=== PATIENT | male | born 1950 | race Caucasian/White ===

== ENCOUNTER → 2018-07-17 | Outpatient (CLI) | payer MEDICARE ==
[2018-07-17 12:12] LABS: Appearance,Urine Clear (Clear); Bilirubin,Urine Negative (Negative); Blood,Urine Negative (Negative); Color,Urine Yellow; Glucose,Urine (UA) Negative (Negative); Ketones,Urine Negative (Negative); Leukocyte Esterase,Urine Negative (Negative); Nitrite,Urine Negative (Negative); Protein,Urine Negative (Negative); Specific Gravity,Urine 1.007 (1.001-1.035); Urobilinogen,Urine <2.0 mg/dL (<2.0)
[2018-07-17 12:28] LABS: HCT 43.1 % (39.0-53.0); HGB 14.3 gm/dL (13.0-17.5); MCH 28.7 pg (25.0-35.0); MCHC 33.3 g/dL (31.0-37.0); MCV 86.3 fL (80.0-100.0); Mean Platelet Volume 8.3; Platelet Count 211 k/uL (150-450); RBC 4.99 m/uL (4.30-5.90); RDW 13.4 % (11.5-15.5); WBC 8.7 k/uL (3.8-10.6)
[2018-07-17 12:31] LABS: INR 0.9 (<1.2); Partial Thromboplastin Time 24.9 sec (22.0-30.0); Prothrombin Time 10.2 sec (9.0-12.0)
[2018-07-17 12:37] LABS: ALT 43 U/L (21-72); AST 57 U/L (17-59); Albumin 4.1 g/dL (3.5-5.0); Alkaline Phosphatase 63 U/L (38-126); Anion Gap 6 mmol/L; Blood Urea Nitrogen 15 mg/dL (9-20); Calcium 9.5 mg/dL (8.4-10.2); Carbon Dioxide 31 mmol/L (22-30); Chloride 103 mmol/L (98-107); Cholesterol 174 mg/dL (<200); Glucose 107 mg/dL (74-99); HDL Cholesterol 42 mg/dL (40-60); LDL Cholesterol,Calculated 95 mg/dL (0-99); Potassium 5.1 mmol/L (3.5-5.1); Sodium 140 mmol/L (137-145); Total Bilirubin 0.7 mg/dL (0.2-1.3); Total Protein 6.7 g/dL (6.3-8.2); Triglycerides 184 mg/dL (<150)
--- NOTE | 2018-07-17 14:36 | XR ---
EXAMINATION TYPE: XR chest 2V DATE OF EXAM: 07/17/2018 COMPARISON: NONE TECHNIQUE: PA and lateral views submitted. HISTORY: Presurgical testing FINDINGS: The lungs are clear and there is no pneumothorax, pleural effusion, or focal pneumonia. Biapical pl eural thickening. Hypertrophic change of the spine. No overt failure. IMPRESSION: 1. No acute process.
[2018-07-17 18:07] LABS: Hepatitis A Antibody IgM Non-Reactive (Non-Reactive); Hepatitis B Core IgM Non-Reactive (Non-Reactive)
[2018-07-17 19:14] LABS: Hemoglobin A1C 5.6 % (4.0-6.0)
--- NOTE | 2018-07-21 11:29 | P.PN ---
Progress Note - Text Progress Note Date: 07/17/18 5 meter walk test completed: #1 3.96 sec #2 4.33 sec #3 3.59 sec STS risk score calculated and discussed with the patient and his
== END | disposition home or self-care (01) ==
LOC: LABPAT 11:02
PROVIDERS: ATTEND Thoracic Surgery (Cardiothoracic Vascular Surgery)
DX: Z01.818 Encounter for other preprocedural examination (principal); Z01.812 Encounter for preprocedural laboratory examination
CPT/HCPCS: 36415; 71046; 80053; 80061; 80074; 81003; 83036; 83735; 84443; 85027; 85610; 85730; 87070; 87086; 93005

== ENCOUNTER 2018-07-24 05:49 | Inpatient (IN) | payer MEDICARE ==
[~2018-07-24 05:49] MED LIST: ALBUMIN HUMAN 25% 50 ML IV ONE; ALBUMIN HUMAN 5% 500 ML IVPB ONE; ASPIRIN 325 MG TAB PO ONE; ATORVASTATIN 10 MG TAB PO ONE; CALCIUM CHLORIDE 100 MG/ML 10 ML SYRINGE IV ONE; CHLORHEXIDINE GLUCONATE 15 ML CUP MUCOUS MEM ONE; CLEVIDIPINE BUTYRATE 25 MG in EMPTY BAG 1 BAG IV ONE; DEXTROSE 5% IN WATER 1,000 ML with POTASSIUM CHLORIDE 110 MEQ, MAGNESIUM SULFATE 16 MEQ... IV ONE; DEXTROSE 5% IN WATER 1,000 ML with POTASSIUM CHLORIDE 25 MEQ, SODIUM CHLORIDE 2.5MEQ/ML... IRRIGATION ONE; HEPARIN SODIUM 1,000 UN/ML (10ML VL) IV ONE; HEPARIN SODIUM,PORCINE 5,000 UNIT in SODIUM CHLORIDE 0.9% 500 ML 500 ML IV ONE; INSULIN REGULAR 100 UNIT in SODIUM CHLORIDE 0.9% 100 ML IV ONE; LACTATED RINGERS 1,000 ML IV ONE; MAGNESIUM SULFATE MG 500 MG/ML IV ONE; MANNITOL 25% 12.5 GM/50 ML VIAL IV ONE; METOPROLOL TARTRATE 12.5 MG TAB PO ONE; NITROGLYCERIN SL TABS 0.4 MG TAB SUBLINGUAL ONE; NITROGLYCERIN-D5W PMX 25 MG/250 ML BTL IV ONE; NITROGLYCERIN-D5W PMX 50 MG in DEXTROSE/WATER 1 250ML.BAG IV ONE; NOREPINEPHRINE 4 MG in SODIUM CHLORIDE 0.9% 250 ML IV ONE; PAPAVERINE 360 MG in SODIUM CHLORIDE 0.9% 90 ML IV ONE; PHENYLEPHRINE 10 MG/ML VIAL IV ONE; PHENYLEPHRINE 40 MG in SODIUM CHLORIDE 0.9% 250 ML IV ONE; PROPOFOL 1,000 MG/100 ML VIAL IV ONE; PROTAMINE SULFATE 10 MG/ML 25 ML VIAL IV ONE; PROTAMINE SULFATE 250 MG in EMPTY BAG 1 BAG IV ONE; SODIUM BICARB 8.4% 50 ML SYR (1 MEQ/ML) IV ONE; SODIUM CHLORIDE 0.9% 1,000 ML IV ONE; TRANEXAMIC ACID 2,000 MG in SODIUM CHLORIDE 0.9% 80 ML IV ONE; ceFAZolin 2,000 MG in SODIUM CHLORIDE 0.9% 30 ML IVPB ONE
[2018-07-24] MEDS ORDERED: ELECTROLYTE-R (PH 7.4) 1,000 ML IV.SOLN IV ONE (08:44)
[2018-07-24] MEDS ORDERED: PROTAMINE SULFATE 10 MG/ML 25 ML VIAL IV ONE (08:44)
[2018-07-24] MEDS ORDERED: ePHEDrine SULFATE/0.9% NACL/PF 50 MG/5 ML SYRINGE IV ONE (08:44)
[2018-07-24] MEDS ORDERED: PHENYLEPHRINE-0.9% NACL SYG 1 MG/10 ML SYRINGE ONE (08:44)
[2018-07-24] MEDS ORDERED: HEPARIN SODIUM,PORCINE 10,000 UNIT/ML 1 ML VIAL ONE (08:44)
[2018-07-24] MEDS ORDERED: SODIUM CHLORIDE 0.9% 250 ML BAG ONE (08:44)
[2018-07-24] MEDS ORDERED: VECURONIUM 10 MG VIAL IV ONE (08:44)
[2018-07-24] MEDS ORDERED: ceFAZolin 1,000 MG VIAL ONE (08:44)
[2018-07-24] MEDS ORDERED: SUCCINYLCHOLINE CHLORIDE VIAL 200 MG/10 ML VIAL IV ONE (08:44)
[2018-07-24] MEDS ORDERED: MIDAZOLAM 2 MG/2 ML VIAL ONE (08:44)
[2018-07-24] MEDS ORDERED: MAGNESIUM SULFATE 4 MEQ/ML 10ML VIAL ONE (08:44)
[2018-07-24] MEDS ORDERED: fentaNYL (PF) 50 MCG/ML 2 ML AMP ONE (08:44)
[2018-07-24] MEDS ORDERED: PROPOFOL 10 MG/ML 20 ML VIAL IV ONE (08:44)
[2018-07-24] MEDS ORDERED: LIDOCAINE 2% SYG (PF) 100 MG/5 ML ONE (08:44)
[2018-07-24] MEDS ORDERED: TRANEXAMIC ACID 1,000 MG/10 ML VIAL ONE (08:44)
[2018-07-24] MEDS ORDERED: SODIUM CHLORIDE 0.9% IRRIG 1,000 ML BTL IRRIGATION ONE (08:44)
[2018-07-24] MEDS ORDERED: fentaNYL (PF) 50 MCG/ML 50 ML VIAL ONE (08:44)
[2018-07-24] MEDS ORDERED: CALCIUM CHLORIDE 100 MG/ML 10 ML SYRINGE ONE (08:44)
[2018-07-24 09:24] LABS: ABG Base Excess 1.8 mmol/L; ABG HCO3 26 mmol/L (21-25); ABG PCO2 40 mmHg (35-45); ABG PH 7.43 (7.35-7.45); ABG PO2 356 mmHg (83-108); ABG Potassium Whole Blood 4.3 mmol/L (3.4-4.5); ABG Sodium Whole Blood 139 mmol/L (135-146); ABG TCO2 28 mmol/L (19-24)
[2018-07-24 10:16] LABS: ABG Base Excess 1.3 mmol/L; ABG HCO3 26 mmol/L (21-25); ABG Oxygen Saturation 98.8 % (94-97); ABG PCO2 40 mmHg (35-45); ABG PH 7.42 (7.35-7.45); ABG PO2 112 mmHg (83-108); ABG Potassium Whole Blood 4.3 mmol/L (3.4-4.5); ABG Sodium Whole Blood 138 mmol/L (135-146); ABG TCO2 27 mmol/L (19-24)
[2018-07-24 10:50] LABS: ABG Base Excess 0.8 mmol/L; ABG HCO3 26 mmol/L (21-25); ABG PCO2 41 mmHg (35-45); ABG PO2 374 mmHg (83-108); ABG Potassium Whole Blood 5.2 mmol/L (3.4-4.5); ABG Sodium Whole Blood 132 mmol/L (135-146); ABG TCO2 27 mmol/L (19-24)
[2018-07-24 11:20] LABS: ABG Base Excess -0.3 mmol/L; ABG HCO3 26 mmol/L (21-25); ABG Oxygen Saturation 99.4 % (94-97); ABG PCO2 51 mmHg (35-45); ABG PH 7.32 (7.35-7.45); ABG PO2 158 mmHg (83-108); ABG Potassium Whole Blood 4.4 mmol/L (3.4-4.5); ABG Sodium Whole Blood 135 mmol/L (135-146); ABG TCO2 28 mmol/L (19-24)
[2018-07-24 11:40] LABS: ABG Base Excess -0.7 mmol/L; ABG HCO3 26 mmol/L (21-25); ABG PCO2 53 mmHg (35-45); ABG PO2 387 mmHg (83-108); ABG Potassium Whole Blood 4.3 mmol/L (3.4-4.5); ABG Sodium Whole Blood 136 mmol/L (135-146); ABG TCO2 28 mmol/L (19-24)
[2018-07-24 12:00] LABS: ABG Base Excess -0.4 mmol/L; ABG HCO3 25 mmol/L (21-25); ABG PCO2 44 mmHg (35-45); ABG PH 7.37 (7.35-7.45); ABG PO2 418 mmHg (83-108); ABG Potassium Whole Blood 4.6 mmol/L (3.4-4.5); ABG Sodium Whole Blood 136 mmol/L (135-146); ABG TCO2 26 mmol/L (19-24)
[2018-07-24 13:03] LABS: ABG Base Excess -0.4 mmol/L; ABG HCO3 25 mmol/L (21-25); ABG Oxygen Saturation 99.9 % (94-97); ABG PCO2 42 mmHg (35-45); ABG PH 7.38 (7.35-7.45); ABG PO2 315 mmHg (83-108); ABG Potassium Whole Blood 3.9 mmol/L (3.4-4.5); ABG Sodium Whole Blood 137 mmol/L (135-146); ABG TCO2 26 mmol/L (19-24)
[2018-07-24 13:04] LABS: ABG Base Excess -0.7 mmol/L; ABG HCO3 24 mmol/L (21-25); ABG PCO2 41 mmHg (35-45); ABG PH 7.39 (7.35-7.45); ABG PO2 296 mmHg (83-108); ABG Potassium Whole Blood 3.9 mmol/L (3.4-4.5); ABG Sodium Whole Blood 137 mmol/L (135-146); ABG TCO2 26 mmol/L (19-24)
[2018-07-24] MEDS ORDERED: BENZOCAINE/MENTHOL LOZENG 1 EACH LOZENGE MUCOUS MEM PRN (13:29)
[2018-07-24] MEDS ORDERED: AMIODARONE 360 MG in DEXTROSE 5% IN WATER 200 ML IV PRN ×2 (13:29)
[2018-07-24] MEDS ORDERED: Potassium Replacement Protocol 1 EACH MISC MISCELLANE PRN (13:29)
[2018-07-24] MEDS ORDERED: PROPOFOL 1,000 MG in EMPTY BAG 1 BAG IV SCH (13:29)
[2018-07-24] MEDS ORDERED: CLEVIDIPINE BUTYRATE 25 MG in EMPTY BAG 1 BAG IV SCH (13:29)
[2018-07-24] MEDS ORDERED: Phosphorus Replacement Protoco 1 EACH MISC MISCELLANE PRN (13:29)
[2018-07-24] MEDS ORDERED: NITROGLYCERIN-D5W PMX 50 MG in DEXTROSE/WATER 1 250ML.BAG IV SCH (13:29)
[2018-07-24] MEDS ORDERED: METOCLOPRAMIDE 5 MG/ML 2 ML VIAL IVP PRN (13:29)
[2018-07-24] MEDS ORDERED: CALCIUM CHLORIDE 1,000 MG in SODIUM CHLORIDE 0.9% 100 ML IV PRN (13:29)
[2018-07-24] MEDS ORDERED: Magnesium Replacement Protocol 1 EACH MISC MISCELLANE PRN (13:29)
[2018-07-24] MEDS ORDERED: IPRATROPIUM-ALBUTEROL 3 ML NEB INHALATION PRN (13:29)
[2018-07-24] MEDS ORDERED: ALBUMIN HUMAN 5% 250 ML in EMPTY BAG 1 BAG IVPB PRN (13:29)
[2018-07-24 14:13] LABS: Glucose,Whole Blood 129 mg/dL (75-99)
[2018-07-24 14:25] LABS: Basophils % (A) 0 %; Eosinophils # (A) 0.1 k/uL (0-0.7); Eosinophils % (A) 0 %; HCT 35.8 % (39.0-53.0); Lymphocytes # (A) 0.7 k/uL (1.0-4.8); Lymphocytes % (A) 3 %; MCH 29.2 pg (25.0-35.0); MCHC 33.4 g/dL (31.0-37.0); MCV 87.4 fL (80.0-100.0); Mean Platelet Volume 8.9; Monocytes # (A) 1.2 k/uL (0-1.0); Monocytes % (A) 4 %; Neutrophils # (A) 25.7 k/uL (1.3-7.7); Neutrophils % (A) 93 %; Platelet Count 141 k/uL (150-450); RDW 13.4 % (11.5-15.5); WBC 27.8 k/uL (3.8-10.6)
[2018-07-24 14:29] LABS: ABG Base Excess 1.4 mmol/L; ABG HCO3 27 mmol/L (21-25); ABG PCO2 46 mmHg (35-45); ABG PH 7.37 (7.35-7.45); ABG PO2 382 mmHg (83-108); ABG TCO2 28 mmol/L (19-24)
[2018-07-24 14:43] LABS: INR 1.1 (<1.2); Partial Thromboplastin Time 24.4 sec (22.0-30.0); Prothrombin Time 11.8 sec (9.0-12.0)
[2018-07-24] MEDS: LACTATED RINGERS 1,000 ML IV SCH (14:47)
[2018-07-24 14:48] LABS: ALT 38 U/L (21-72); AST 79 U/L (17-59); Albumin 2.8 g/dL (3.5-5.0); Alkaline Phosphatase 34 U/L (38-126); Anion Gap 3 mmol/L; Blood Urea Nitrogen 14 mg/dL (9-20); Calcium 8.4 mg/dL (8.4-10.2); Carbon Dioxide 27 mmol/L (22-30); Chloride 106 mmol/L (98-107); Glucose 127 mg/dL (74-99); Magnesium 2.4 mg/dL (1.6-2.3); Potassium 4.4 mmol/L (3.5-5.1); Sodium 136 mmol/L (137-145); Total Protein 4.8 g/dL (6.3-8.2)
[2018-07-24] MEDS: ACETAMINOPHEN IV (For NPO) 1,000 MG in EMPTY BAG 1 BAG IVPB SCH ×3 (15:13→23:10)
--- NOTE | 2018-07-24 15:17 | XR ---
EXAMINATION TYPE: XR chest 1V portable DATE OF EXAM: 07/24/2018 COMPARISON: NONE HISTORY: Incorrect instrument count TECHNIQUE: Single frontal view of the chest is obtained. FINDINGS: ET tube is low in position within the proximal right mainstem bronchus and there is bilate ral subsegmental consolidation and small left effusion. No sizable pneumothorax. Sternotomy wires are seen and there is a Pearcy-Malika catheter no evidence of previous surgery. Suggestion of an epicardial lead. Perihilar air fluid density is nonspecific should be correlated PA and lateral views the chest or CT scan. Prominence the hilum is noted as well as the right paratracheal soft tissue region. Small amount of pneumomediastinum not excluded. IMPRESSION: 1. Postsurgical changes with the ET tube in the proximal right mainstem bronchus. Report called to e patient's ICU nurse. 2. Bilateral consolidation and small effusion. 3. Air soft tissue density in the left perihilar region of uncertain etiology may be postsurgical cor relate with CT scan as clinically warranted.
[2018-07-24 15:18] LABS: Glucose,Whole Blood 116 mg/dL (75-99)
[2018-07-24] MEDS ORDERED: IPRATROPIUM-ALBUTEROL 3 ML NEB INHALATION SCH (16:00)
--- NOTE | 2018-07-24 16:11 | OP ---
OPERATIVE REPORT DATE OF OPERATION: 07/24/2018. ATTENDING SURGEON: Dr. Harinder Arce. ASSIST: Ramo Cummings and Emily JERRELL. PREOP DIAGNOSES: 1. Severe mitral regurgitation. 2. Coronary artery disease. POSTOPERATIVE DISEASE: 1. Severe mitral regurgitation. 2. Coronary artery disease. 3. 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 PROCEDURE PERFORMED: 1. Complex mitral valve repair with zack chords x2 pair to P2 of the posterior leaflet, ring annuloplasty with a #36 mm carbo medics annular flex band. 2. Coronary artery bypass grafting x1 with left internal mammary to left anterior descending artery. 3. Clip ligation of left atrial appendage with a #40 mm AtriClip. 4. Closure of P2, P3 cleft in the posterior mitral leaflet. 5. Intraoperative SHANICE. ANESTHESIA: General anesthesia. BLOOD LOSS: 500 mL. SUMMARY: The patient brought to the operating room and placed on the operating table in supine position. After administration of general tracheal anesthetic, placement of a [place]- Malika catheter, arterial line adequate IV access, Anand catheter, patient carefully prepped and draped in a sterile fashion using Betadine and sterile towels. Midline incision in the chest made, sternum divided. Pericardium was opened. Heart size was relatively normal size and the aorta was soft. Left pleural space opened. Left internal mammary artery harvested as a pedicle from the xiphoid to the left subclavian vein. It was of 2 mm quality with excellent flow. The patient was heparinized. ACT rather than 480. The aorta and 2 single stage venous cannulas were placed, antegrade and retrograde cardioplegic catheters positioned in the ascending aorta and the coronary sinus. The patient was placed on bypass, cross-clamp placed. Heart arrested with 1 L of antegrade followed by 500 mL retrograde cardioplegia. Retrograde cardioplegia was delivered 3-500 mL at the end of each 20 minute intervals. First the base of the left atrial appendage was measured and a #40 mm AtriClip was opened and secured at the base officially obliterating the left atrial appendage. Next, the distal anastomosis was constructed. Left internal mammary was beveled and distal anastomosis to the mid left anterior descending artery constructed using an 0 Prolene running suture. Caliber of this vessel was 2 mm. The left atrium was entered anterior to the junction of the right superior pulmonary vein. A handheld retractor was placed. The mitral valve was identified. There was definitely noted to be torn chords to P2 of the posterior leaflet. The mitral valve was a myxomatous type valve with abundance of tissue. At this point, using 5-0 [place]ood 2 pairs of zack chords were constructed to the appropriate papillary muscle heads to the medial and lateral edges of P2 of the posterior leaflet, then they were tied down measuring accordingly. At this point, a large cleft between P2 and P3 was closed with 2 vertical mattress 5-0 Prolene sutures. Next, it sized to a 36 mm [employer] annular flex. 2-0 Tycron non pledgeted sutures were placed from trigone to trigone along the posterior anulus. These were then passed through the band, which was seated and seated well. All sutures were then tied and secured down and cut using the core knot ligature system device. It was tested with the handheld jerson and tested well. At this point, the atrium was closed in a double layered pledgeted 4-0 Prolene vertical mattress followed by an over- and over stitch from both sides. At this point, the patient was placed head down. Complete de-airing maneuvers were performed three times. 1 L of warm blood retrograde cardioplegia was run cross-clamp was then removed. Once reperfused, the patient was then brought off bypass. Came off bypass uneventfully with good hemodynamics. Protamine delivered. Patient decannulated. Atrial ventricular pacing wires were placed. Mediastinal left pleural chest tubes were placed. At this point, the sternum was closed with four #6 sternal wires and 3 [id number] [place] sternal cable closure devices. At this point, skin, subcutaneous tissue, and fascia closed in 3 layers. No complications. The patient tolerated the procedure well. Postoperative SHANICE showed excellent left and right ventricular function. Good result in the mitral repair with no regurg, central or perivalvular. MMODL / IJN: [id number] /
[2018-07-24 16:12] LABS: Glucose,Whole Blood 121 mg/dL (75-99)
[2018-07-24 16:55] LABS: ABG Base Excess -1.8 mmol/L; ABG HCO3 24 mmol/L (21-25); ABG Oxygen Saturation 99.3 % (94-97); ABG PCO2 44 mmHg (35-45); ABG PH 7.34 (7.35-7.45); ABG PO2 142 mmHg (83-108); ABG TCO2 25 mmol/L (19-24)
--- NOTE | 2018-07-24 16:56 | P.CNPUL ---
History of Present Illness Consult date: 07/24/18 Requesting physician: Harinder Arce Reason for consult: other (Status post complex mitral valve repair, and coronary artery bypass grafting 1 with TERRELL to LAD.) Chief complaint: Severe mitral regurgitation and coronary artery disease, recently discovere History of present illness: This is a 68-year-old white male with history of severe mitral valve regurgitation, coronary artery disease, torn chordae 2 P2 the posterior leaflet. Patient underwent complex mitral valve repair today, with Edgar cords 2 and repair of posterior leaflet. During annuloplasty with #36 mm [employer] annular flex band. Patient also underwent coronary artery bypass grafting 1 with TERRELL to LAD. Postoperatively patient was on mechanical ventilation, and I was asked to see him on consultation. Patient is presently in the intensive care unit, his ventilator settings are IMV rate of 12, tidal volume of 550, PEEP of 10, and FiO2 initially was at 100% and I cut it down to 45%. ABG in the ICU showed a pO2 of 382 pCO2 of 46 pH of 7.37. Chest x-ray was reviewed, the endotracheal tube was noted in the right mainstem bronchus, however it was earlier removed by the surgeon on the case before the patient came up to the ICU. No follow-up chest x-ray was done since the tube was adjusted. Review of Systems ROS unobtainable: due to endotracheal tube Past Medical History Past Medical History: Hyperlipidemia Additional Past Medical History / Comment(s): seasonal allergies History of Any Multi-Drug Resistant Organisms: None Reported Past Surgical History: Heart Catheterization Additional Past Surgical History / Comment(s): SHANICE x3 Past Anesthesia/Blood Transfusion Reactions: No Reported Reaction Smoking Status: Never smoker - Past Family History Brother(s) Family Medical History: Cancer Medications and Allergies Home Medications Medication Instructions Recorded Confirmed Type Aspirin 81 mg PO DAILY 07/21/18 07/24/18 History Atorvastatin [Lipitor] 40 mg PO HS 07/21/18 07/24/18 History L.acidoph,Paracasei, B.lactis 1 each PO DAILY 07/21/18 07/24/18 History [Probiotic] Loratadine [Claritin] 10 mg PO DAILY 07/21/18 07/24/18 History Multivitamins, Thera [Multivitamin 1 tab PO DAILY 07/21/18 07/24/18 History (formulary)] Sildenafil Citrate [Viagra] 25 mg PO ONCE 07/21/18 07/24/18 History Allergies Allergy/AdvReac Type Severity Reaction Status Date / Time No Known Allergies Allergy Verified 07/24/18 06:13 Physical Exam Vitals: Vital Signs Temp Pulse Pulse Resp BP BP BP 07/24/18 16:30 85 17 149/82 07/24/18 16:15 83 15 124/74 07/24/18 16:00 74 19 127/78 07/24/18 15:50 76 15 127/78 07/24/18 15:46 70 18 07/24/18 15:40 69 15 122/77 07/24/18 15:32 70 12 07/24/18 15:30 69 11 L 07/24/18 15:20 70 12 108/71 07/24/18 15:10 70 12 111/73 07/24/18 15:00 69 17 115/73 07/24/18 14:50 69 12 07/24/18 14:40 70 12 07/24/18 14:30 68 9 L 07/24/18 14:20 68 12 07/24/18 14:10 68 12 07/24/18 14:04 79 12 07/24/18 06:09 97.3 F L 74 18 156/76 07/24/18 06:07 148/71 Pulse Ox 07/24/18 16:30 96 07/24/18 16:15 92 L 07/24/18 16:00 100 07/24/18 15:50 100 07/24/18 15:46 07/24/18 15:40 100 07/24/18 15:32 07/24/18 15:30 99 07/24/18 15:20 100 07/24/18 15:10 100 07/24/18 15:00 100 07/24/18 14:50 100 07/24/18 14:40 100 07/24/18 14:30 100 07/24/18 14:20 100 07/24/18 14:10 100 07/24/18 14:04 07/24/18 06:09 96 07/24/18 06:07 Intake and Output 07/24/18 07/24/18 07/24/18 06:59 14:59 22:59 Intake Total 34.975 140.009 Output Total 1900 272 Balance -1865.025 -131.991 Intake: IV 32 100 Lactated Ringers 1,000 ml 100 @ 50 mls/hr IV .Q20H MILLI Rx#:[id number] Intake, IV Titration 2.975 40.009 Amount Clevidipine Butyrate 25 1.9 15.667 mg In Empty Bag 1 bag @ 1 MG/HR 2 mls/hr IV .Q24H MILLI Rx#:[id number] Nitroglycerin-D5w Pmx 50 1.075 0.5 mg In Dextrose/Water 1 250ml.bag @ 5 MCG/MIN 1.5 mls/hr IV .Q24H MILLI Rx#: [id number] Propofol 1,000 mg In 23.842 Empty Bag 1 bag @ Titrate IV .Q0M MILLI Rx#: [id number] Output: Chest Tube Drainage 170 Left Pleural/Mediastinal 170 Urine 400 102 Estimated Blood Loss 1500 ABP, PAP, CO, CI - Last 8 Hours Arterial Blood Pressure 145/75 Arterial Blood Pressure 136/71 Arterial Blood Pressure 117/69 Arterial Blood Pressure 134/76 Arterial Blood Pressure 142/74 Arterial Blood Pressure 136/71 Arterial Blood Pressure 133/70 Arterial Blood Pressure 128/69 Arterial Blood Pressure 124/70 Arterial Blood Pressure 130/73 Arterial Blood Pressure 135/76 Arterial Blood Pressure 135/74 Arterial Blood Pressure 136/75 Arterial Blood Pressure 59/59 Pulmonary Artery Pressure 50/27 Pulmonary Artery Pressure 57/26 Pulmonary Artery Pressure 42/24 Pulmonary Artery Pressure 43/25 Pulmonary Artery Pressure 43/25 Pulmonary Artery Pressure 42/23 Pulmonary Artery Pressure 42/24 Pulmonary Artery Pressure 38/22 Pulmonary Artery Pressure 38/22 Pulmonary Artery Pressure 40/24 Pulmonary Artery Pressure 40/24 Pulmonary Artery Pressure 38/24 Pulmonary Artery Pressure 40/23 Pulmonary Artery Pressure 41/24 Cardiac Output 4.5 Cardiac Output 4.5 Cardiac Index 2.0 Cardiac Index 2.0 Physical Exam: Revealed a 68-year-old white male, obese, on mechanical ventilation, in no distress, sedated. Head: Atraumatic normocephalic. HEENT:[Neck is supple.] [No neck masses.] [No thyromegaly.] [No JVD.] PERRLA, EOMI, endotracheal tube is intact, orogastric tube is intact. Chest: [[employer] breath sounds at the bases no crackles or rhonchi or wheezes..] Cardiac Exam: [Normal S1 and S2, no S3 gallop, 2/6 systolic murmur thought the precordium, positive pericardial rub] Abdomen: [Obese, Soft, nontender, no megaly, no rebound, no guarding, normal bowel sounds.] Extremities: [No clubbing, no edema, no cyanosis.] Neurological Exam: [Cannot be assessed, patient is sedated on mechanical ventilation. Psychiatric: Cannot be assessed. Pharynx: No lymphadenopathy. Urine: No rashes. Results - Laboratory Findings CBC and BMP: 07/24/18 14:10 07/24/18 14:10 ABG ABG pH 7.37 (7.35-7.45) 07/24/18 14:25 ABG pCO2 46 mmHg (35-45) H 07/24/18 14:25 ABG pO2 382 mmHg (83-108) H 07/24/18 14:25 ABG O2 Saturation 100.0 % (94-97) H 07/24/18 14:25 PT/INR, D-dimer PT 11.8 sec (9.0-12.0) 07/24/18 14:10 INR 1.1 (<1.2) 07/24/18 14:10 Abnormal lab findings: Abnormal Labs 07/17/18 07/24/18 07/24/18 11:25 09:24 10:16 WBC RBC Hgb Hct Plt Count Neutrophils # Lymphocytes # Monocytes # ABG pH ABG pCO2 ABG pO2 356 H 112 H ABG HCO3 26 H 26 H ABG Total CO2 28 H 27 H ABG O2 Saturation 100.0 H 98.8 H ABG Hematocrit ABG Sodium ABG Potassium ABG Ionized Calcium ABG Glucose 107 H 145 H ABG Lactic Acid Hemoglobin Sodium Glucose POC Glucose (mg/dL) Magnesium AST Alkaline Phosphatase Total Protein Albumin Arterial Blood Potassium Arterial Blood Glucose 107 H 145 H Crossmatch See Detail 07/24/18 07/24/18 07/24/18 10:50 11:20 11:40 WBC RBC Hgb Hct Plt Count Neutrophils # Lymphocytes # Monocytes # ABG pH 7.32 L 7.30 L ABG pCO2 51 H 53 H ABG pO2 374 H 158 H 387 H ABG HCO3 26 H 26 H 26 H ABG Total CO2 27 H 28 H 28 H ABG O2 Saturation 100.0 H 99.4 H 100.0 H ABG Hematocrit 30 L 31 L 31 L ABG Sodium 132 L ABG Potassium 5.2 H ABG Ionized Calcium 4.1 L 4.3 L 4.4 L ABG Glucose 237 H 202 H 206 H ABG Lactic Acid 1.7 H 1.7 H Hemoglobin 9.8 L 10.1 L 10.0 L Sodium Glucose POC Glucose (mg/dL) Magnesium AST Alkaline Phosphatase Total Protein Albumin Arterial Blood Potassium 5.2 H Arterial Blood Glucose 237 H 202 H 206 H Crossmatch 07/24/18 07/24/18 07/24/18 12:00 13:03 13:04 WBC RBC Hgb Hct Plt Count Neutrophils # Lymphocytes # Monocytes # ABG pH ABG pCO2 ABG pO2 418 H 315 H 296 H ABG HCO3 ABG Total CO2 26 H 26 H 26 H ABG O2 Saturation 100.0 H 99.9 H 100.0 H ABG Hematocrit 30 L ABG Sodium ABG Potassium 4.6 H ABG Ionized Calcium 4.3 L 4.2 L 4.2 L ABG Glucose 214 H 176 H 176 H ABG Lactic Acid 2.1 H 2.5 H* 2.5 H* Hemoglobin 9.8 L 11.0 L 10.9 L Sodium Glucose POC Glucose (mg/dL) Magnesium AST Alkaline Phosphatase Total Protein Albumin Arterial Blood Potassium 4.6 H Arterial Blood Glucose 214 H 176 H 176 H Crossmatch 07/24/18 07/24/18 07/24/18 14:10 14:10 14:10 WBC 27.8 H RBC 4.10 L Hgb 12.0 L Hct 35.8 L Plt Count 141 L Neutrophils # 25.7 H Lymphocytes # 0.7 L Monocytes # 1.2 H ABG pH ABG pCO2 ABG pO2 ABG HCO3 ABG Total CO2 ABG O2 Saturation ABG Hematocrit ABG Sodium ABG Potassium ABG Ionized Calcium ABG Glucose ABG Lactic Acid Hemoglobin Sodium 136 L Glucose 127 H POC Glucose (mg/dL) 129 H Magnesium 2.4 H AST 79 H Alkaline Phosphatase 34 L Total Protein 4.8 L Albumin 2.8 L Arterial Blood Potassium Arterial Blood Glucose Crossmatch 07/24/18 07/24/18 07/24/18 14:25 14:59 15:54 WBC RBC Hgb Hct Plt Count Neutrophils # Lymphocytes # Monocytes # ABG pH ABG pCO2 46 H ABG pO2 382 H ABG HCO3 27 H ABG Total CO2 28 H ABG O2 Saturation 100.0 H ABG Hematocrit ABG Sodium ABG Potassium ABG Ionized Calcium ABG Glucose ABG Lactic Acid Hemoglobin Sodium Glucose POC Glucose (mg/dL) 116 H 121 H Magnesium AST Alkaline Phosphatase Total Protein Albumin Arterial Blood Potassium Arterial Blood Glucose Crossmatch - Diagnostic Findings Chest x-ray: image reviewed (As noted in HPI.) Assessment and Plan Assessment: Impression: 1 status post complex mitral valve repair and coronary artery bypass grafting 1, TERRELL to LAD. Status post clip ligation of left atrial appendage and closure of P2, P3 cleft in the posterior mitral leaflet. Postoperative day #0. 2 history of severe mitral regurgitation 3 history of coronary artery disease. 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 Recommendation: Patient's ventilator settings were noted and adjusted according to the blood gas, he is already on bronchodilators in the form of DuoNeb, ABG was reviewed, chest x-ray was reviewed, I have instructed the nurses to follow the protocol for mechanical ventilation and weaning, and hopefully the patient will be weaned in the next few hours. We'll continue to follow. Time with Patient: Greater than 30
[2018-07-24] MEDS: INSULIN REGULAR 100 UNIT in SODIUM CHLORIDE 0.9% 100 ML IV SCH (17:00)
[2018-07-24 17:06] LABS: Basophils # (A) 0.1 k/uL (0-0.2); Basophils % (A) 0 %; Eosinophils # (A) 0.1 k/uL (0-0.7); Eosinophils % (A) 0 %; HGB 13.3 gm/dL (13.0-17.5); Lymphocytes # (A) 1.3 k/uL (1.0-4.8); Lymphocytes % (A) 4 %; MCV 88.2 fL (80.0-100.0); Mean Platelet Volume 8.8; Monocytes % (A) 6 %; Neutrophils # (A) 31.6 k/uL (1.3-7.7); Neutrophils % (A) 90 %; Platelet Count 209 k/uL (150-450); RBC 4.42 m/uL (4.30-5.90); RDW 13.6 % (11.5-15.5); WBC 35.1 k/uL (3.8-10.6)
[2018-07-24 17:18] LABS: Glucose,Whole Blood 151 mg/dL (75-99)
[2018-07-24 17:35] LABS: Glucose,Whole Blood 150 mg/dL (75-99)
[2018-07-24] MEDS: fentaNYL (PF) 50 MCG/ML 2 ML AMP IVP PRN ×3 (17:43→23:13)
[2018-07-24] MEDS: ceFAZolin IN SWFI 2 GM/20 ML SYRINGE IVP SCH ×2 (17:45→23:13)
[2018-07-24 18:09] LABS: Glucose,Whole Blood 159 mg/dL (75-99)
[2018-07-24 19:08] LABS: Glucose,Whole Blood 165 mg/dL (75-99)
[2018-07-24] MEDS: IPRATROPIUM-ALBUTEROL 3 ML NEB INHALATION SCH (19:48)
[2018-07-24 20:08] LABS: Glucose,Whole Blood 149 mg/dL (75-99)
[2018-07-24] MEDS: ONDANSETRON 4 MG/2 ML VIAL IVP PRN (20:12)
[2018-07-24 20:22] LABS: HCT 39.9 % (39.0-53.0); MCH 28.9 pg (25.0-35.0); MCHC 32.6 g/dL (31.0-37.0); MCV 88.5 fL (80.0-100.0); Mean Platelet Volume 8.8; Platelet Count 200 k/uL (150-450); RBC 4.51 m/uL (4.30-5.90); RDW 13.5 % (11.5-15.5)
[2018-07-24 21:24] LABS: Band Neutrophils % 4 %; Neutrophils % (M) 93 %; Nucleated Red Blood Cells 0 /100 WBC (0-0); Total Cells Counted 200
[2018-07-24 21:26] LABS: Glucose,Whole Blood 136 mg/dL (75-99)
[2018-07-24 21:33] LABS: Anion Gap 6 mmol/L; Blood Urea Nitrogen 15 mg/dL (9-20); Calcium 8.6 mg/dL (8.4-10.2); Carbon Dioxide 27 mmol/L (22-30); Chloride 103 mmol/L (98-107); Glucose 146 mg/dL (74-99); Potassium 4.2 mmol/L (3.5-5.1); Sodium 136 mmol/L (137-145)
[2018-07-24] MEDS: MUPIROCIN 2% OINT 22 GM TUBE NASAL SCH (22:10)
[2018-07-24 22:12] LABS: Glucose,Whole Blood 129 mg/dL (75-99)
--- NOTE | 2018-07-24 23:12 | CONS ---
CONSULTATION DATE OF CONSULTATION: 07/24/2018 REASON FOR CONSULTATION: Medical management, requested by Dr. Arce. CONSULTATION: This is a pleasant 68-year-old patient who was in the ICU, status post coronary artery bypass and mitral valve replacement with angioplasty. Post procedure, the patient has been extubated. Sitting up. Drips include Cleviprex, nitroglycerin and insulin. The patient has 2 chest tubes, left pleural and mediastinal. The patient is tired but able to answer questions. On nasal cannula. Chronic stable medical conditions include hyperlipidemia, anxiety, obesity. REVIEW OF SYSTEMS: CONSTITUTIONAL: Tired. HEENT: None. RESPIRATORY: Some shortness of breath. CARDIOVASCULAR: As above. GASTROINTESTINAL: None. GENITOURINARY: Anand catheter. MUSCULOSKELETAL: None. DERMATOLOGICAL: None. HEMATOLOGICAL: None. LYMPHATICS: None. PSYCHIATRY: Anxiety. NEUROLOGICAL: None. PAST MEDICAL HISTORY: Hyperlipidemia, seasonal allergies. PAST SURGICAL HISTORY: Cardiac catheterization, SHANICE. SOCIAL HISTORY: No smoking. Alcohol rarely. Has an [employer]. . FAMILY HISTORY: Cancer, type unknown. HOME MEDICATIONS: 1. Viagra. 2. Multivitamins. 3. Claritin. 4. Probiotic. 5. Lipitor 40 mg at bedtime. 6. Aspirin 81 mg a day. ALLERGIES: NONE. PHYSICAL EXAMINATION: Afebrile. Pulse 85, respiration 17, blood pressure 149/82, pulse ox 96% on nasal cannula. GENERAL APPEARANCE: Well built; BMI 34.4. Lying in bed, somewhat tired. EYES: Pupils equal. Conjunctivae normal. HEENT: External appearance of nose and ears normal. Oral cavity normal. NECK: JVD unable to assess. Mass not palpable. RESPIRATORY: Effort normal. LUNGS: Fair air entry. CARDIOVASCULAR: Heart sounds muffled. No edema. ABDOMEN: Soft, nontender. Liver and spleen not palpable. LYMPHATIC: No lymph node palpable in neck or axillae. PSYCHIATRY: Patient able to answer simple questions. NEUROLOGICAL: Pupils equal. Cranial nerves grossly intact. Power and sensation grossly intact. INVESTIGATIONS: White count 35.1, hemoglobin 13.3, increased neutrophils. Albumin 2.8. ASSESSMENT: 1. Status post coronary artery bypass. 2. Mitral valve repair with annuloplasty. 3. Hyperlipidemia. 4. Obesity; body mass index 34.4. 5. Leukocytosis, likely reactive from surgery. No evidence of infection. 6. Hypoalbuminemia as an acute phase reactant. 7. Hyperglycemia. Patient on insulin drip. Patient is not a diabetic. PLAN: Continue current medication and treatment plan. Patient is also getting IV amiodarone; did get IV albumin. Patient is currently on IV Cleviprex, nitroglycerin and insulin. Thank you Dr. Arce. CARMEN / JCARLOSN: [id number] /
[2018-07-24] MEDS: HEPARIN SODIUM,PORCINE 5,000 UNIT/ML 1 ML VIAL SQ SCH (23:14)
[2018-07-24] MEDS: METOPROLOL TARTRATE 25 MG TAB PO SCH (23:14)
[2018-07-24 23:23] LABS: Glucose,Whole Blood 123 mg/dL (75-99)
[2018-07-25 00:11] LABS: Glucose,Whole Blood 120 mg/dL (75-99)
[2018-07-25 01:25] LABS: Glucose,Whole Blood 120 mg/dL (75-99)
[2018-07-25 02:11] LABS: Glucose,Whole Blood 121 mg/dL (75-99)
[2018-07-25 03:16] LABS: Glucose,Whole Blood 107 mg/dL (75-99)
[2018-07-25 04:28] LABS: Glucose,Whole Blood 125 mg/dL (75-99)
[2018-07-25 04:37] LABS: Basophils % (A) 0 %; Eosinophils % (A) 0 %; HCT 38.3 % (39.0-53.0); HGB 12.6 gm/dL (13.0-17.5); Lymphocytes # (A) 0.6 k/uL (1.0-4.8); Lymphocytes % (A) 2 %; MCH 28.5 pg (25.0-35.0); MCHC 32.9 g/dL (31.0-37.0); MCV 86.7 fL (80.0-100.0); Mean Platelet Volume 8.3; Monocytes # (A) 1.4 k/uL (0-1.0); Monocytes % (A) 5 %; Neutrophils # (A) 24.3 k/uL (1.3-7.7); Neutrophils % (A) 92 %; Platelet Count 187 k/uL (150-450); RBC 4.41 m/uL (4.30-5.90); RDW 13.4 % (11.5-15.5); WBC 26.5 k/uL (3.8-10.6)
[2018-07-25 04:41] LABS: Ionized Calcium 4.9 mg/dL (4.5-5.3)
[2018-07-25 04:47] LABS: ALT 37 U/L (21-72); AST 107 U/L (17-59); Albumin 3.3 g/dL (3.5-5.0); Alkaline Phosphatase 49 U/L (38-126); Anion Gap 6 mmol/L; Blood Urea Nitrogen 19 mg/dL (9-20); Calcium 8.5 mg/dL (8.4-10.2); Carbon Dioxide 26 mmol/L (22-30); Chloride 104 mmol/L (98-107); Glucose 126 mg/dL (74-99); Potassium 4.5 mmol/L (3.5-5.1); Sodium 136 mmol/L (137-145); Total Protein 5.4 g/dL (6.3-8.2)
[2018-07-25 06:07] LABS: Glucose,Whole Blood 122 mg/dL (75-99)
[2018-07-25] MEDS: ACETAMINOPHEN IV (For NPO) 1,000 MG in EMPTY BAG 1 BAG IVPB SCH ×2 (06:14→12:28)
[2018-07-25 07:01] LABS: Glucose,Whole Blood 275 mg/dL (75-99)
[2018-07-25 07:26] LABS: Glucose,Whole Blood 105 mg/dL (75-99)
[2018-07-25] MEDS: ONDANSETRON 4 MG/2 ML VIAL IVP PRN ×3 (07:41→23:00)
[2018-07-25] MEDS: IPRATROPIUM-ALBUTEROL 3 ML NEB INHALATION SCH ×4 (08:02→20:21)
[2018-07-25 08:33] LABS: Glucose,Whole Blood 130 mg/dL (75-99)
[2018-07-25] MEDS ORDERED: METOPROLOL TARTRATE 12.5 MG TAB PO SCH (09:00)
[2018-07-25] MEDS ORDERED: PANTOPRAZOLE 40 MG/10 ML VIAL IVP SCH (09:00)
[2018-07-25] MEDS: INSULIN REGULAR 100 UNIT in SODIUM CHLORIDE 0.9% 100 ML IV SCH (09:10)
[2018-07-25] MEDS ORDERED: FUROSEMIDE 10 MG/ML 4 ML VIAL IV STA (09:15)
[2018-07-25] MEDS: HEPARIN SODIUM,PORCINE 5,000 UNIT/ML 1 ML VIAL SQ SCH ×3 (09:16→23:04)
[2018-07-25 09:22] LABS: Glucose,Whole Blood 123 mg/dL (75-99)
--- NOTE | 2018-07-25 09:32 | XR ---
EXAMINATION TYPE: XR chest 1V portable DATE OF EXAM: 07/25/2018 COMPARISON: Prior chest x-ray 07/24/2018 HISTORY: Postop cardiac surgery TECHNIQUE: Single frontal view of the chest is obtained. FINDINGS: The patient is rotated and post median sternotomy. There are overlying leads. No evident p neumothorax. Heart is enlarged. Central vascularity and interstitium appear prominently. Median oleary al drain, left chest tube, left subclavian central venous sheath and coaxial catheter over the pulmon meño artery are again noted. Endotracheal tube has been removed in the interval. Patient shows left at rial appendage clipping. IMPRESSION: Rotated exam. Interval extubation. Cardiomegaly and postop changes. Follow-up recommende d. There may be a component of volume overload, atelectasis, pulmonary venous hypertension and inters titial edema.
[2018-07-25] MEDS ORDERED: LORATADINE 10 MG TAB PO PRN (09:34)
[2018-07-25] MEDS: METOPROLOL TARTRATE 25 MG TAB PO SCH ×2 (10:16→20:24)
[2018-07-25] MEDS: CLOPIDOGREL 75 MG TAB PO SCH (10:17)
[2018-07-25] MEDS: MUPIROCIN 2% OINT 22 GM TUBE NASAL SCH ×2 (10:17→20:26)
[2018-07-25] MEDS: ATORVASTATIN 40 MG TAB PO SCH (10:17)
[2018-07-25] MEDS: ASPIRIN 325 MG TAB PO SCH (10:17)
[2018-07-25] MEDS: LACTATED RINGERS 1,000 ML IV SCH (10:19)
[2018-07-25 10:28] LABS: Glucose,Whole Blood 122 mg/dL (75-99)
[2018-07-25] MEDS: KETOROLAC 30 MG/ML 1 ML VIAL IVP SCH ×3 (11:10→23:03)
--- NOTE | 2018-07-25 11:21 | P.PN ---
Subjective Progress Note Date: 07/25/18 Principal diagnosis: Status post mitral valve repair and CABG times one. Postoperative day #1. 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 Patient underwent complex mitral valve repair today, with Edgar cords 2 and repair of posterior leaflet. During annuloplasty with #36 mm [employer] annular flex band. Patient also underwent coronary artery bypass grafting 1 with TERRELL to LAD. Postoperatively patient was on mechanical ventilation, and I was asked to see him on consultation. Patient is presently in the intensive care unit, his ventilator settings are IMV rate of 12, tidal volume of 550, PEEP of 10, and FiO2 initially was at 100% and I cut it down to 45%. ABG in the ICU showed a pO2 of 382 pCO2 of 46 pH of 7.37. Chest x-ray was reviewed, the endotracheal tube was noted in the right mainstem bronchus, however it was earlier removed by the surgeon on the case before the patient came up to the ICU. No follow-up chest x-ray was done since the tube was adjusted. Patient was reevaluated today on 07/25/2018, remains in the ICU, he was weaned and extubated a few hours after he arrived to the ICU. Patient is now on nasal cannula, seems to be doing fairly well. Denies any cough no wheezing no shortness of breath. His chest x-ray did show some atelectasis at the left lower lobe, and that is expected after such surgery. His WBC count is elevated today at 26.5, however it was 30.0 yesterday. Basic metabolic profile is normal, renal profile is normal. Patient is not doing well with incentive spirometry, hence I instructed him on the use of the incentive spirometer, and encouraged him to use it more often. Objective - Vital Signs Vital signs: Vital Signs Temp 97.8 F 07/25/18 04:00 Pulse 69 07/25/18 11:01 Resp 21 07/25/18 07:00 BP 107/63 07/25/18 07:00 Pulse Ox 95 07/25/18 08:02 Intake & Output 07/24/18 07/25/18 07/25/18 18:59 06:59 18:59 Intake Total 312.659 944.476 167.747 Output Total 2458 1110 60 Balance -2145.341 -165.524 107.747 Weight 119.5 kg Intake: IV 243.5 787.0 60.5 Lactated Ringers 1,000 ml 200 600 50 @ 50 mls/hr IV .Q20H [facility] Rx#:[id number] Nitroglycerin-D5w Pmx 50 11.5 18.0 1.5 mg In Dextrose/Water 1 250ml.bag @ 5 MCG/MIN 1.5 mls/hr IV .Q24H [facility]ILLI Rx#: [id number] ci/co 70 pressure bag 99 9 Intake, IV Titration 69.159 157.476 107.247 Amount ACETAMINOPHEN IV (For NPO 100 100 ) 1,000 mg In Empty Bag 1 bag @ 400 mls/hr IVPB Q6HR MILLI Rx#:[id number] Clevidipine Butyrate 25 41.267 8.6 mg In Empty Bag 1 bag @ 1 MG/HR 2 mls/hr IV .Q24H [facility]I Rx#:[id number] Insulin Regular 100 unit 2.475 48.876 7.247 In Sodium Chloride 0.9% 100 ml @ Per Protocol IV .Q0M [facility]I Rx#:[id number] Nitroglycerin-D5w Pmx 50 1.575 mg In Dextrose/Water 1 250ml.bag @ 5 MCG/MIN 1.5 mls/hr IV .Q24H [facility]I Rx#: [id number] Propofol 1,000 mg In 23.842 Empty Bag 1 bag @ Titrate IV .Q0M MILLI Rx#: [id number] Output: Chest Tube Drainage 330 540 20 Left Pleural/Mediastinal 330 540 20 Urine 628 570 40 Estimated Blood Loss 1500 Other: Voiding Method Indwelling Catheter Indwelling Catheter ABP, PAP, CO, CI - Last Documented Arterial Blood Pressure 135/62 Pulmonary Artery Pressure 36/15 Cardiac Output 7.7 Cardiac Index 3.4 - Exam Physical Exam: Revealed a 68-year-old white male sitting at bedside she had, on few liters nasal cannula, in no distress. Head: Atraumatic, normocephalic. HEENT:[Neck is supple.] [No neck masses.] [No thyromegaly.] [No JVD.] Chest: [Crackles and rhonchi at the bases especially at the left base.] Cardiac Exam: [Normal S1 and S2, no S3 gallop, 2/6 systolic murmur thought the precordium.] Abdomen: [Obese, Soft, nontender, no megaly, no rebound, no guarding, normal bowel sounds.] Extremities: [No clubbing, no edema, no cyanosis.] Neurological Exam: [No focal neurologic deficit.] Alert oriented 3. Psychiatric: Normal mood affect and mental status examination. - Labs CBC & Chem 7: 07/25/18 04:26 07/25/18 04:26 Labs: Abnormal Lab Results - Last 24 Hours (Table) 07/17/18 07/24/18 07/24/18 Range/Units 11:25 09:24 10:16 WBC (3.8-10.6) k/uL RBC (4.30-5.90) m/uL Hgb (13.0-17.5) gm/dL Hct (39.0-53.0) % Plt Count (150-450) k/uL Neutrophils # (1.3-7.7) k/uL Neutrophils # (Manual) (1.3-7.7) k/uL Lymphocytes # (1.0-4.8) k/uL Lymphocytes # (Manual) (1.0-4.8) k/uL Monocytes # (0-1.0) k/uL ABG pH (7.35-7.45) ABG pCO2 (35-45) mmHg ABG pO2 356 H 112 H (83-108) mmHg ABG HCO3 26 H 26 H (21-25) mmol/L ABG Total CO2 28 H 27 H (19-24) mmol/L ABG O2 Saturation 100.0 H 98.8 H (94-97) % ABG Hematocrit (34.0-46.0) % ABG Sodium (135-146) mmol/L ABG Potassium (3.4-4.5) mmol/L ABG Ionized Calcium (4.5-5.3) mg/dL ABG Glucose 107 H 145 H (75-99) mg/dL ABG Lactic Acid (0.5-1.6) mmol/L Hemoglobin (13.0-17.5) gm/dL Sodium (137-145) mmol/L Creatinine (0.66-1.25) mg/dL Glucose (74-99) mg/dL POC Glucose (mg/dL) (75-99) mg/dL Magnesium (1.6-2.3) mg/dL AST (17-59) U/L Alkaline Phosphatase (38-126) U/L Total Protein (6.3-8.2) g/dL Albumin (3.5-5.0) g/dL Arterial Blood Potassium (3.4-4.5) mmol/L Arterial Blood Glucose 107 H 145 H (75-99) mg/dL Crossmatch See Detail 07/24/18 07/24/18 07/24/18 Range/Units 10:50 11:20 11:40 WBC (3.8-10.6) k/uL RBC (4.30-5.90) m/uL Hgb (13.0-17.5) gm/dL Hct (39.0-53.0) % Plt Count (150-450) k/uL Neutrophils # (1.3-7.7) k/uL Neutrophils # (Manual) (1.3-7.7) k/uL Lymphocytes # (1.0-4.8) k/uL Lymphocytes # (Manual) (1.0-4.8) k/uL Monocytes # (0-1.0) k/uL ABG pH 7.32 L 7.30 L (7.35-7.45) ABG pCO2 51 H 53 H (35-45) mmHg ABG pO2 374 H 158 H 387 H (83-108) mmHg ABG HCO3 26 H 26 H 26 H (21-25) mmol/L ABG Total CO2 27 H 28 H 28 H (19-24) mmol/L ABG O2 Saturation 100.0 H 99.4 H 100.0 H (94-97) % ABG Hematocrit 30 L 31 L 31 L (34.0-46.0) % ABG Sodium 132 L (135-146) mmol/L ABG Potassium 5.2 H (3.4-4.5) mmol/L ABG Ionized Calcium 4.1 L 4.3 L 4.4 L (4.5-5.3) mg/dL ABG Glucose 237 H 202 H 206 H (75-99) mg/dL ABG Lactic Acid 1.7 H 1.7 H (0.5-1.6) mmol/L Hemoglobin 9.8 L 10.1 L 10.0 L (13.0-17.5) gm/dL Sodium (137-145) mmol/L Creatinine (0.66-1.25) mg/dL Glucose (74-99) mg/dL POC Glucose (mg/dL) (75-99) mg/dL Magnesium (1.6-2.3) mg/dL AST (17-59) U/L Alkaline Phosphatase (38-126) U/L Total Protein (6.3-8.2) g/dL Albumin (3.5-5.0) g/dL Arterial Blood Potassium 5.2 H (3.4-4.5) mmol/L Arterial Blood Glucose 237 H 202 H 206 H (75-99) mg/dL Crossmatch 07/24/18 07/24/18 07/24/18 Range/Units 12:00 13:03 13:04 WBC (3.8-10.6) k/uL RBC (4.30-5.90) m/uL Hgb (13.0-17.5) gm/dL Hct (39.0-53.0) % Plt Count (150-450) k/uL Neutrophils # (1.3-7.7) k/uL Neutrophils # (Manual) (1.3-7.7) k/uL Lymphocytes # (1.0-4.8) k/uL Lymphocytes # (Manual) (1.0-4.8) k/uL Monocytes # (0-1.0) k/uL ABG pH (7.35-7.45) ABG pCO2 (35-45) mmHg ABG pO2 418 H 315 H 296 H (83-108) mmHg ABG HCO3 (21-25) mmol/L ABG Total CO2 26 H 26 H 26 H (19-24) mmol/L ABG O2 Saturation 100.0 H 99.9 H 100.0 H (94-97) % ABG Hematocrit 30 L (34.0-46.0) % ABG Sodium (135-146) mmol/L ABG Potassium 4.6 H (3.4-4.5) mmol/L ABG Ionized Calcium 4.3 L 4.2 L 4.2 L (4.5-5.3) mg/dL ABG Glucose 214 H 176 H 176 H (75-99) mg/dL ABG Lactic Acid 2.1 H 2.5 H* 2.5 H* (0.5-1.6) mmol/L Hemoglobin 9.8 L 11.0 L 10.9 L (13.0-17.5) gm/dL Sodium (137-145) mmol/L Creatinine (0.66-1.25) mg/dL Glucose (74-99) mg/dL POC Glucose (mg/dL) (75-99) mg/dL Magnesium (1.6-2.3) mg/dL AST (17-59) U/L Alkaline Phosphatase (38-126) U/L Total Protein (6.3-8.2) g/dL Albumin (3.5-5.0) g/dL Arterial Blood Potassium 4.6 H (3.4-4.5) mmol/L Arterial Blood Glucose 214 H 176 H 176 H (75-99) mg/dL Crossmatch 07/24/18 07/24/18 07/24/18 Range/Units 14:10 14:10 14:10 WBC 27.8 H (3.8-10.6) k/uL RBC 4.10 L (4.30-5.90) m/uL Hgb 12.0 L (13.0-17.5) gm/dL Hct 35.8 L (39.0-53.0) % Plt Count 141 L (150-450) k/uL Neutrophils # 25.7 H (1.3-7.7) k/uL Neutrophils # (Manual) (1.3-7.7) k/uL Lymphocytes # 0.7 L (1.0-4.8) k/uL Lymphocytes # (Manual) (1.0-4.8) k/uL Monocytes # 1.2 H (0-1.0) k/uL ABG pH (7.35-7.45) ABG pCO2 (35-45) mmHg ABG pO2 (83-108) mmHg ABG HCO3 (21-25) mmol/L ABG Total CO2 (19-24) mmol/L ABG O2 Saturation (94-97) % ABG Hematocrit (34.0-46.0) % ABG Sodium (135-146) mmol/L ABG Potassium (3.4-4.5) mmol/L ABG Ionized Calcium (4.5-5.3) mg/dL ABG Glucose (75-99) mg/dL ABG Lactic Acid (0.5-1.6) mmol/L Hemoglobin (13.0-17.5) gm/dL Sodium 136 L (137-145) mmol/L Creatinine (0.66-1.25) mg/dL Glucose 127 H (74-99) mg/dL POC Glucose (mg/dL) 129 H (75-99) mg/dL Magnesium 2.4 H (1.6-2.3) mg/dL AST 79 H (17-59) U/L Alkaline Phosphatase 34 L (38-126) U/L Total Protein 4.8 L (6.3-8.2) g/dL Albumin 2.8 L (3.5-5.0) g/dL Arterial Blood Potassium (3.4-4.5) mmol/L Arterial Blood Glucose (75-99) mg/dL Crossmatch 07/24/18 07/24/18 07/24/18 Range/Units 14:25 14:59 15:54 WBC (3.8-10.6) k/uL RBC (4.30-5.90) m/uL Hgb (13.0-17.5) gm/dL Hct (39.0-53.0) % Plt Count (150-450) k/uL Neutrophils # (1.3-7.7) k/uL Neutrophils # (Manual) (1.3-7.7) k/uL Lymphocytes # (1.0-4.8) k/uL Lymphocytes # (Manual) (1.0-4.8) k/uL Monocytes # (0-1.0) k/uL ABG pH (7.35-7.45) ABG pCO2 46 H (35-45) mmHg ABG pO2 382 H (83-108) mmHg ABG HCO3 27 H (21-25) mmol/L ABG Total CO2 28 H (19-24) mmol/L ABG O2 Saturation 100.0 H (94-97) % ABG Hematocrit (34.0-46.0) % ABG Sodium (135-146) mmol/L ABG Potassium (3.4-4.5) mmol/L ABG Ionized Calcium (4.5-5.3) mg/dL ABG Glucose (75-99) mg/dL ABG Lactic Acid (0.5-1.6) mmol/L Hemoglobin (13.0-17.5) gm/dL Sodium (137-145) mmol/L Creatinine (0.66-1.25) mg/dL Glucose (74-99) mg/dL POC Glucose (mg/dL) 116 H 121 H (75-99) mg/dL Magnesium (1.6-2.3) mg/dL AST (17-59) U/L Alkaline Phosphatase (38-126) U/L Total Protein (6.3-8.2) g/dL Albumin (3.5-5.0) g/dL Arterial Blood Potassium (3.4-4.5) mmol/L Arterial Blood Glucose (75-99) mg/dL Crossmatch 07/24/18 07/24/18 07/24/18 Range/Units 16:50 16:51 16:54 WBC 35.1 H (3.8-10.6) k/uL RBC (4.30-5.90) m/uL Hgb (13.0-17.5) gm/dL Hct (39.0-53.0) % Plt Count (150-450) k/uL Neutrophils # 31.6 H (1.3-7.7) k/uL Neutrophils # (Manual) (1.3-7.7) k/uL Lymphocytes # (1.0-4.8) k/uL Lymphocytes # (Manual) (1.0-4.8) k/uL Monocytes # 2.0 H (0-1.0) k/uL ABG pH 7.34 L (7.35-7.45) ABG pCO2 (35-45) mmHg ABG pO2 142 H (83-108) mmHg ABG HCO3 (21-25) mmol/L ABG Total CO2 25 H (19-24) mmol/L ABG O2 Saturation 99.3 H (94-97) % ABG Hematocrit (34.0-46.0) % ABG Sodium (135-146) mmol/L ABG Potassium (3.4-4.5) mmol/L ABG Ionized Calcium (4.5-5.3) mg/dL ABG Glucose (75-99) mg/dL ABG Lactic Acid (0.5-1.6) mmol/L Hemoglobin (13.0-17.5) gm/dL Sodium (137-145) mmol/L Creatinine (0.66-1.25) mg/dL Glucose (74-99) mg/dL POC Glucose (mg/dL) 151 H (75-99) mg/dL Magnesium (1.6-2.3) mg/dL AST (17-59) U/L Alkaline Phosphatase (38-126) U/L Total Protein (6.3-8.2) g/dL Albumin (3.5-5.0) g/dL Arterial Blood Potassium (3.4-4.5) mmol/L Arterial Blood Glucose (75-99) mg/dL Crossmatch 07/24/18 07/24/18 07/24/18 Range/Units 17:33 18:00 19:03 WBC (3.8-10.6) k/uL RBC (4.30-5.90) m/uL Hgb (13.0-17.5) gm/dL Hct (39.0-53.0) % Plt Count (150-450) k/uL Neutrophils # (1.3-7.7) k/uL Neutrophils # (Manual) (1.3-7.7) k/uL Lymphocytes # (1.0-4.8) k/uL Lymphocytes # (Manual) (1.0-4.8) k/uL Monocytes # (0-1.0) k/uL ABG pH (7.35-7.45) ABG pCO2 (35-45) mmHg ABG pO2 (83-108) mmHg ABG HCO3 (21-25) mmol/L ABG Total CO2 (19-24) mmol/L ABG O2 Saturation (94-97) % ABG Hematocrit (34.0-46.0) % ABG Sodium (135-146) mmol/L ABG Potassium (3.4-4.5) mmol/L ABG Ionized Calcium (4.5-5.3) mg/dL ABG Glucose (75-99) mg/dL ABG Lactic Acid (0.5-1.6) mmol/L Hemoglobin (13.0-17.5) gm/dL Sodium (137-145) mmol/L Creatinine (0.66-1.25) mg/dL Glucose (74-99) mg/dL POC Glucose (mg/dL) 150 H 159 H 165 H (75-99) mg/dL Magnesium (1.6-2.3) mg/dL AST (17-59) U/L Alkaline Phosphatase (38-126) U/L Total Protein (6.3-8.2) g/dL Albumin (3.5-5.0) g/dL Arterial Blood Potassium (3.4-4.5) mmol/L Arterial Blood Glucose (75-99) mg/dL Crossmatch 07/24/18 07/24/18 07/24/18 Range/Units 20:05 20:08 21:10 WBC 30.0 H (3.8-10.6) k/uL RBC (4.30-5.90) m/uL Hgb (13.0-17.5) gm/dL Hct (39.0-53.0) % Plt Count (150-450) k/uL Neutrophils # (1.3-7.7) k/uL Neutrophils # (Manual) 29.10 H (1.3-7.7) k/uL Lymphocytes # (1.0-4.8) k/uL Lymphocytes # (Manual) 0.60 L (1.0-4.8) k/uL Monocytes # (0-1.0) k/uL ABG pH (7.35-7.45) ABG pCO2 (35-45) mmHg ABG pO2 (83-108) mmHg ABG HCO3 (21-25) mmol/L ABG Total CO2 (19-24) mmol/L ABG O2 Saturation (94-97) % ABG Hematocrit (34.0-46.0) % ABG Sodium (135-146) mmol/L ABG Potassium (3.4-4.5) mmol/L ABG Ionized Calcium (4.5-5.3) mg/dL ABG Glucose (75-99) mg/dL ABG Lactic Acid (0.5-1.6) mmol/L Hemoglobin (13.0-17.5) gm/dL Sodium (137-145) mmol/L Creatinine (0.66-1.25) mg/dL Glucose (74-99) mg/dL POC Glucose (mg/dL) 149 H 136 H (75-99) mg/dL Magnesium (1.6-2.3) mg/dL AST (17-59) U/L Alkaline Phosphatase (38-126) U/L Total Protein (6.3-8.2) g/dL Albumin (3.5-5.0) g/dL Arterial Blood Potassium (3.4-4.5) mmol/L Arterial Blood Glucose (75-99) mg/dL Crossmatch 07/24/18 07/24/18 07/24/18 Range/Units 21:14 22:08 23:06 WBC (3.8-10.6) k/uL RBC (4.30-5.90) m/uL Hgb (13.0-17.5) gm/dL Hct (39.0-53.0) % Plt Count (150-450) k/uL Neutrophils # (1.3-7.7) k/uL Neutrophils # (Manual) (1.3-7.7) k/uL Lymphocytes # (1.0-4.8) k/uL Lymphocytes # (Manual) (1.0-4.8) k/uL Monocytes # (0-1.0) k/uL ABG pH (7.35-7.45) ABG pCO2 (35-45) mmHg ABG pO2 (83-108) mmHg ABG HCO3 (21-25) mmol/L ABG Total CO2 (19-24) mmol/L ABG O2 Saturation (94-97) % ABG Hematocrit (34.0-46.0) % ABG Sodium (135-146) mmol/L ABG Potassium (3.4-4.5) mmol/L ABG Ionized Calcium (4.5-5.3) mg/dL ABG Glucose (75-99) mg/dL ABG Lactic Acid (0.5-1.6) mmol/L Hemoglobin (13.0-17.5) gm/dL Sodium 136 L (137-145) mmol/L Creatinine (0.66-1.25) mg/dL Glucose 146 H (74-99) mg/dL POC Glucose (mg/dL) 129 H 123 H (75-99) mg/dL Magnesium (1.6-2.3) mg/dL AST (17-59) U/L Alkaline Phosphatase (38-126) U/L Total Protein (6.3-8.2) g/dL Albumin (3.5-5.0) g/dL Arterial Blood Potassium (3.4-4.5) mmol/L Arterial Blood Glucose (75-99) mg/dL Crossmatch 07/25/18 07/25/18 07/25/18 Range/Units 00:07 01:11 02:08 WBC (3.8-10.6) k/uL RBC (4.30-5.90) m/uL Hgb (13.0-17.5) gm/dL Hct (39.0-53.0) % Plt Count (150-450) k/uL Neutrophils # (1.3-7.7) k/uL Neutrophils # (Manual) (1.3-7.7) k/uL Lymphocytes # (1.0-4.8) k/uL Lymphocytes # (Manual) (1.0-4.8) k/uL Monocytes # (0-1.0) k/uL ABG pH (7.35-7.45) ABG pCO2 (35-45) mmHg ABG pO2 (83-108) mmHg ABG HCO3 (21-25) mmol/L ABG Total CO2 (19-24) mmol/L ABG O2 Saturation (94-97) % ABG Hematocrit (34.0-46.0) % ABG Sodium (135-146) mmol/L ABG Potassium (3.4-4.5) mmol/L ABG Ionized Calcium (4.5-5.3) mg/dL ABG Glucose (75-99) mg/dL ABG Lactic Acid (0.5-1.6) mmol/L Hemoglobin (13.0-17.5) gm/dL Sodium (137-145) mmol/L Creatinine (0.66-1.25) mg/dL Glucose (74-99) mg/dL POC Glucose (mg/dL) 120 H 120 H 121 H (75-99) mg/dL Magnesium (1.6-2.3) mg/dL AST (17-59) U/L Alkaline Phosphatase (38-126) U/L Total Protein (6.3-8.2) g/dL Albumin (3.5-5.0) g/dL Arterial Blood Potassium (3.4-4.5) mmol/L Arterial Blood Glucose (75-99) mg/dL Crossmatch 07/25/18 07/25/18 07/25/18 Range/Units 03:13 04:14 04:26 WBC 26.5 H (3.8-10.6) k/uL RBC (4.30-5.90) m/uL Hgb 12.6 L (13.0-17.5) gm/dL Hct 38.3 L (39.0-53.0) % Plt Count (150-450) k/uL Neutrophils # 24.3 H (1.3-7.7) k/uL Neutrophils # (Manual) (1.3-7.7) k/uL Lymphocytes # 0.6 L (1.0-4.8) k/uL Lymphocytes # (Manual) (1.0-4.8) k/uL Monocytes # 1.4 H (0-1.0) k/uL ABG pH (7.35-7.45) ABG pCO2 (35-45) mmHg ABG pO2 (83-108) mmHg ABG HCO3 (21-25) mmol/L ABG Total CO2 (19-24) mmol/L ABG O2 Saturation (94-97) % ABG Hematocrit (34.0-46.0) % ABG Sodium (135-146) mmol/L ABG Potassium (3.4-4.5) mmol/L ABG Ionized Calcium (4.5-5.3) mg/dL ABG Glucose (75-99) mg/dL ABG Lactic Acid (0.5-1.6) mmol/L Hemoglobin (13.0-17.5) gm/dL Sodium (137-145) mmol/L Creatinine (0.66-1.25) mg/dL Glucose (74-99) mg/dL POC Glucose (mg/dL) 107 H 125 H (75-99) mg/dL Magnesium (1.6-2.3) mg/dL AST (17-59) U/L Alkaline Phosphatase (38-126) U/L Total Protein (6.3-8.2) g/dL Albumin (3.5-5.0) g/dL Arterial Blood Potassium (3.4-4.5) mmol/L Arterial Blood Glucose (75-99) mg/dL Crossmatch 07/25/18 07/25/18 07/25/18 Range/Units 04:26 06:04 06:58 WBC (3.8-10.6) k/uL RBC (4.30-5.90) m/uL Hgb (13.0-17.5) gm/dL Hct (39.0-53.0) % Plt Count (150-450) k/uL Neutrophils # (1.3-7.7) k/uL Neutrophils # (Manual) (1.3-7.7) k/uL Lymphocytes # (1.0-4.8) k/uL Lymphocytes # (Manual) (1.0-4.8) k/uL Monocytes # (0-1.0) k/uL ABG pH (7.35-7.45) ABG pCO2 (35-45) mmHg ABG pO2 (83-108) mmHg ABG HCO3 (21-25) mmol/L ABG Total CO2 (19-24) mmol/L ABG O2 Saturation (94-97) % ABG Hematocrit (34.0-46.0) % ABG Sodium (135-146) mmol/L ABG Potassium (3.4-4.5) mmol/L ABG Ionized Calcium (4.5-5.3) mg/dL ABG Glucose (75-99) mg/dL ABG Lactic Acid (0.5-1.6) mmol/L Hemoglobin (13.0-17.5) gm/dL Sodium 136 L (137-145) mmol/L Creatinine 0.58 L (0.66-1.25) mg/dL Glucose 126 H (74-99) mg/dL POC Glucose (mg/dL) 122 H 275 H (75-99) mg/dL Magnesium (1.6-2.3) mg/dL AST 107 H (17-59) U/L Alkaline Phosphatase (38-126) U/L Total Protein 5.4 L (6.3-8.2) g/dL Albumin 3.3 L (3.5-5.0) g/dL Arterial Blood Potassium (3.4-4.5) mmol/L Arterial Blood Glucose (75-99) mg/dL Crossmatch 07/25/18 07/25/18 07/25/18 Range/Units 07:22 08:19 09:08 WBC (3.8-10.6) k/uL RBC (4.30-5.90) m/uL Hgb (13.0-17.5) gm/dL Hct (39.0-53.0) % Plt Count (150-450) k/uL Neutrophils # (1.3-7.7) k/uL Neutrophils # (Manual) (1.3-7.7) k/uL Lymphocytes # (1.0-4.8) k/uL Lymphocytes # (Manual) (1.0-4.8) k/uL Monocytes # (0-1.0) k/uL ABG pH (7.35-7.45) ABG pCO2 (35-45) mmHg ABG pO2 (83-108) mmHg ABG HCO3 (21-25) mmol/L ABG Total CO2 (19-24) mmol/L ABG O2 Saturation (94-97) % ABG Hematocrit (34.0-46.0) % ABG Sodium (135-146) mmol/L ABG Potassium (3.4-4.5) mmol/L ABG Ionized Calcium (4.5-5.3) mg/dL ABG Glucose (75-99) mg/dL ABG Lactic Acid (0.5-1.6) mmol/L Hemoglobin (13.0-17.5) gm/dL Sodium (137-145) mmol/L Creatinine (0.66-1.25) mg/dL Glucose (74-99) mg/dL POC Glucose (mg/dL) 105 H 130 H 123 H (75-99) mg/dL Magnesium (1.6-2.3) mg/dL AST (17-59) U/L Alkaline Phosphatase (38-126) U/L Total Protein (6.3-8.2) g/dL Albumin (3.5-5.0) g/dL Arterial Blood Potassium (3.4-4.5) mmol/L Arterial Blood Glucose (75-99) mg/dL Crossmatch 07/25/18 Range/Units 10:14 WBC (3.8-10.6) k/uL RBC (4.30-5.90) m/uL Hgb (13.0-17.5) gm/dL Hct (39.0-53.0) % Plt Count (150-450) k/uL Neutrophils # (1.3-7.7) k/uL Neutrophils # (Manual) (1.3-7.7) k/uL Lymphocytes # (1.0-4.8) k/uL Lymphocytes # (Manual) (1.0-4.8) k/uL Monocytes # (0-1.0) k/uL ABG pH (7.35-7.45) ABG pCO2 (35-45) mmHg ABG pO2 (83-108) mmHg ABG HCO3 (21-25) mmol/L ABG Total CO2 (19-24) mmol/L ABG O2 Saturation (94-97) % ABG Hematocrit (34.0-46.0) % ABG Sodium (135-146) mmol/L ABG Potassium (3.4-4.5) mmol/L ABG Ionized Calcium (4.5-5.3) mg/dL ABG Glucose (75-99) mg/dL ABG Lactic Acid (0.5-1.6) mmol/L Hemoglobin (13.0-17.5) gm/dL Sodium (137-145) mmol/L Creatinine (0.66-1.25) mg/dL Glucose (74-99) mg/dL POC Glucose (mg/dL) 122 H (75-99) mg/dL Magnesium (1.6-2.3) mg/dL AST (17-59) U/L Alkaline Phosphatase (38-126) U/L Total Protein (6.3-8.2) g/dL Albumin (3.5-5.0) g/dL Arterial Blood Potassium (3.4-4.5) mmol/L Arterial Blood Glucose (75-99) mg/dL Crossmatch Assessment and Plan Assessment: Impression: 1 status post complex mitral valve repair and coronary artery bypass grafting 1, TERRELL to LAD. Status post clip ligation of left atrial appendage and closure of P2, P3 cleft in the posterior mitral leaflet. Postoperative day #1 2 history of severe mitral regurgitation 3 history of coronary artery disease. 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 5 postoperative left lower lobe atelectasis, expected after surgery. Hence the patient was instructed on the use of his incentive spirometer, and we'll continue updrafts. Recommendation: Continue present treatment plan including incentive spirometry, bronchodilators, encourage deep coughing deep breathing, ambulate, cardiac meds as listed. Will continue to monitor the patient in the ICU. Will follow. Chest x-ray was reviewed and discussed with the patient. Time with Patient: Less than 30
[2018-07-25 11:49] VITALS: BMI 37.8
--- NOTE | 2018-07-25 11:57 | P.PN ---
Subjective Progress Note Date: 07/25/18 Principal diagnosis: Severe mitral valve regurgitation, coronary artery disease, obesity with a BMI of 37.8 kg/m and hyperlipidemia. POD #1 complex mitral valve repair with zack-cords 2 pair to P2 of the posterior leaflet, ring annuloplasty with a #36 mm [employer] annular flex band. Coronary artery bypass grafting 1 with left internal mammary artery to left anterior descending coronary artery. Clip ligation of the left atrial appendage with a #40 mm Atriclip. Closure of P2, P3 cleft in the posterior mitral leaflet. Intraoperative transesophageal echocardiogram. Patient is sitting up to the bedside chair. He is in no acute distress. He denies any complaints of pain or shortness of breath at this time. He is hemodynamically stable and is currently on no pressors or inotropic support. He is achieving 500 mL on his incentive spirometry with encouragement. WBC count this morning when he 6.5, hemoglobin 12.6. Mediastinal and left pleural chest tubes remain in place to low continuous wall suction, draining thin serosanguineous drainage. No air leaks present. Currently on 3 L of oxygen nasal cannula with oxygen saturation is 95%. Objective - Vital Signs Vital signs: Vital Signs Temp 97.8 F 07/25/18 04:00 Pulse 69 07/25/18 11:01 Resp 18 07/25/18 11:00 BP 126/68 07/25/18 11:00 Pulse Ox 94 L 07/25/18 11:00 Intake & Output 07/24/18 07/25/18 07/25/18 18:59 06:59 18:59 Intake Total 312.659 944.476 849.747 Output Total 2458 1110 430 Balance -2145.341 -165.524 419.747 Weight 119.5 kg Intake: IV 243.5 787.0 202.5 Lactated Ringers 1,000 ml 200 600 150 @ 20 mls/hr IV .Q24H [facility]ILLI Rx#:[id number] Nitroglycerin-D5w Pmx 50 11.5 18.0 7.5 mg In Dextrose/Water 1 250ml.bag @ 5 MCG/MIN 1.5 mls/hr IV .Q24H MILLI Rx#: [id number] ci/co 70 pressure bag 99 45 Intake, IV Titration 69.159 157.476 147.247 Amount ACETAMINOPHEN IV (For NPO 100 100 ) 1,000 mg In Empty Bag 1 bag @ 400 mls/hr IVPB Q6HR MILLI Rx#:[id number] Clevidipine Butyrate 25 41.267 8.6 mg In Empty Bag 1 bag @ 1 MG/HR 2 mls/hr IV .Q24H [facility]ILLI Rx#:[id number] Insulin Regular 100 unit 2.475 48.876 7.247 In Sodium Chloride 0.9% 100 ml @ Per Protocol IV .Q0M [facility]ILLI Rx#:[id number] Lactated Ringers 1,000 ml 40 @ 20 mls/hr IV .Q24H [facility]ILLI Rx#:[id number] Nitroglycerin-D5w Pmx 50 1.575 mg In Dextrose/Water 1 250ml.bag @ 5 MCG/MIN 1.5 mls/hr IV .Q24H [facility]ILLI Rx#: [id number] Propofol 1,000 mg In 23.842 Empty Bag 1 bag @ Titrate IV .Q0M [facility]ILLI Rx#: [id number] Oral 500 Output: Chest Tube Drainage 330 540 150 Left Pleural/Mediastinal 330 540 150 Urine 628 570 280 Estimated Blood Loss 1500 Other: Voiding Method Indwelling Catheter Indwelling Catheter ABP, PAP, CO, CI - Last Documented Arterial Blood Pressure 156/74 Pulmonary Artery Pressure 40/17 Cardiac Output 5.6 Cardiac Index 2.5 - Constitutional General appearance: Present: cooperative, no acute distress, obese - Respiratory Details: Lung sounds are essentially clear throughout, diminished to his bilateral bases. Respirations are symmetrical and nonlabored. Oxygen saturation are 95% on 3 L nasal cannula. He is achieving 500 mL on his incentive spirometry. Left pleural and mediastinal chest tubes in place to low continuous wall suction -20 cm H2O. No air leak is present. Draining thin serosanguineous drainage. 900 mL output since surgery, 320 mL output in the last 8 hours. - Cardiovascular Details: Regular rhythm and rate. S1 and S2 present, negative for S3, gallop or murmur. Sternum is stable. Bedside telemetry showing normal sinus rhythm heart rate 68. Atrial and ventricular epicardial pacemaker wires in place and connected to back up to bedside pacemaker generator with a VVI 50. Heart hugger is in place and he is demonstrating appropriate use. Knee-high VANESSA hose and sequential compression devices in place to his bilateral lower extremities. Left subclav elba Cordis with [place]-Malika catheter in place and functioning. Current cardiac output 7.7, cardiac index 3.4, PA pressures 37/17, CVP 14 mmHg. - Gastrointestinal Gastrointestinal Comment(s): Abdomen is soft, nontender and nondistended. Hypoactive bowel sounds all 4 abdominal quadrants. Tolerating oral intake. Passing flatus. - Genitourinary Genitourinary Comment(s): Anand catheter for accurate I&O. Draining clear yellow urine. 280 mL output in the last 8 hours. - Integumentary Integumentary Comment(s): Skin is warm and dry. No clubbing or cyanosis is present. Midline sternal incision is clean, dry and approximated. No drainage or redness is present. - Neurologic Neurologic: Present: CNII-XII intact - Musculoskeletal Musculoskeletal: Present: gait normal, strength equal bilaterally - Psychiatric Psychiatric: Present: A&O x's 3, appropriate affect, intact judgment & insight - Allied health notes Allied health notes reviewed: nursing - Labs CBC & Chem 7: 07/25/18 04:26 07/25/18 04:26 Labs: Abnormal Lab Results - Last 24 Hours (Table) 07/17/18 07/24/18 07/24/18 Range/Units 11:25 09:24 10:16 WBC (3.8-10.6) k/uL RBC (4.30-5.90) m/uL Hgb (13.0-17.5) gm/dL Hct (39.0-53.0) % Plt Count (150-450) k/uL Neutrophils # (1.3-7.7) k/uL Neutrophils # (Manual) (1.3-7.7) k/uL Lymphocytes # (1.0-4.8) k/uL Lymphocytes # (Manual) (1.0-4.8) k/uL Monocytes # (0-1.0) k/uL ABG pH (7.35-7.45) ABG pCO2 (35-45) mmHg ABG pO2 356 H 112 H (83-108) mmHg ABG HCO3 26 H 26 H (21-25) mmol/L ABG Total CO2 28 H 27 H (19-24) mmol/L ABG O2 Saturation 100.0 H 98.8 H (94-97) % ABG Hematocrit (34.0-46.0) % ABG Sodium (135-146) mmol/L ABG Potassium (3.4-4.5) mmol/L ABG Ionized Calcium (4.5-5.3) mg/dL ABG Glucose 107 H 145 H (75-99) mg/dL ABG Lactic Acid (0.5-1.6) mmol/L Hemoglobin (13.0-17.5) gm/dL Sodium (137-145) mmol/L Creatinine (0.66-1.25) mg/dL Glucose (74-99) mg/dL POC Glucose (mg/dL) (75-99) mg/dL Magnesium (1.6-2.3) mg/dL AST (17-59) U/L Alkaline Phosphatase (38-126) U/L Total Protein (6.3-8.2) g/dL Albumin (3.5-5.0) g/dL Arterial Blood Potassium (3.4-4.5) mmol/L Arterial Blood Glucose 107 H 145 H (75-99) mg/dL Crossmatch See Detail 07/24/18 07/24/18 07/24/18 Range/Units 10:50 11:20 11:40 WBC (3.8-10.6) k/uL RBC (4.30-5.90) m/uL Hgb (13.0-17.5) gm/dL Hct (39.0-53.0) % Plt Count (150-450) k/uL Neutrophils # (1.3-7.7) k/uL Neutrophils # (Manual) (1.3-7.7) k/uL Lymphocytes # (1.0-4.8) k/uL Lymphocytes # (Manual) (1.0-4.8) k/uL Monocytes # (0-1.0) k/uL ABG pH 7.32 L 7.30 L (7.35-7.45) ABG pCO2 51 H 53 H (35-45) mmHg ABG pO2 374 H 158 H 387 H (83-108) mmHg ABG HCO3 26 H 26 H 26 H (21-25) mmol/L ABG Total CO2 27 H 28 H 28 H (19-24) mmol/L ABG O2 Saturation 100.0 H 99.4 H 100.0 H (94-97) % ABG Hematocrit 30 L 31 L 31 L (34.0-46.0) % ABG Sodium 132 L (135-146) mmol/L ABG Potassium 5.2 H (3.4-4.5) mmol/L ABG Ionized Calcium 4.1 L 4.3 L 4.4 L (4.5-5.3) mg/dL ABG Glucose 237 H 202 H 206 H (75-99) mg/dL ABG Lactic Acid 1.7 H 1.7 H (0.5-1.6) mmol/L Hemoglobin 9.8 L 10.1 L 10.0 L (13.0-17.5) gm/dL Sodium (137-145) mmol/L Creatinine (0.66-1.25) mg/dL Glucose (74-99) mg/dL POC Glucose (mg/dL) (75-99) mg/dL Magnesium (1.6-2.3) mg/dL AST (17-59) U/L Alkaline Phosphatase (38-126) U/L Total Protein (6.3-8.2) g/dL Albumin (3.5-5.0) g/dL Arterial Blood Potassium 5.2 H (3.4-4.5) mmol/L Arterial Blood Glucose 237 H 202 H 206 H (75-99) mg/dL Crossmatch 07/24/18 07/24/18 07/24/18 Range/Units 12:00 13:03 13:04 WBC (3.8-10.6) k/uL RBC (4.30-5.90) m/uL Hgb (13.0-17.5) gm/dL Hct (39.0-53.0) % Plt Count (150-450) k/uL Neutrophils # (1.3-7.7) k/uL Neutrophils # (Manual) (1.3-7.7) k/uL Lymphocytes # (1.0-4.8) k/uL Lymphocytes # (Manual) (1.0-4.8) k/uL Monocytes # (0-1.0) k/uL ABG pH (7.35-7.45) ABG pCO2 (35-45) mmHg ABG pO2 418 H 315 H 296 H (83-108) mmHg ABG HCO3 (21-25) mmol/L ABG Total CO2 26 H 26 H 26 H (19-24) mmol/L ABG O2 Saturation 100.0 H 99.9 H 100.0 H (94-97) % ABG Hematocrit 30 L (34.0-46.0) % ABG Sodium (135-146) mmol/L ABG Potassium 4.6 H (3.4-4.5) mmol/L ABG Ionized Calcium 4.3 L 4.2 L 4.2 L (4.5-5.3) mg/dL ABG Glucose 214 H 176 H 176 H (75-99) mg/dL ABG Lactic Acid 2.1 H 2.5 H* 2.5 H* (0.5-1.6) mmol/L Hemoglobin 9.8 L 11.0 L 10.9 L (13.0-17.5) gm/dL Sodium (137-145) mmol/L Creatinine (0.66-1.25) mg/dL Glucose (74-99) mg/dL POC Glucose (mg/dL) (75-99) mg/dL Magnesium (1.6-2.3) mg/dL AST (17-59) U/L Alkaline Phosphatase (38-126) U/L Total Protein (6.3-8.2) g/dL Albumin (3.5-5.0) g/dL Arterial Blood Potassium 4.6 H (3.4-4.5) mmol/L Arterial Blood Glucose 214 H 176 H 176 H (75-99) mg/dL Crossmatch 07/24/18 07/24/18 07/24/18 Range/Units 14:10 14:10 14:10 WBC 27.8 H (3.8-10.6) k/uL RBC 4.10 L (4.30-5.90) m/uL Hgb 12.0 L (13.0-17.5) gm/dL Hct 35.8 L (39.0-53.0) % Plt Count 141 L (150-450) k/uL Neutrophils # 25.7 H (1.3-7.7) k/uL Neutrophils # (Manual) (1.3-7.7) k/uL Lymphocytes # 0.7 L (1.0-4.8) k/uL Lymphocytes # (Manual) (1.0-4.8) k/uL Monocytes # 1.2 H (0-1.0) k/uL ABG pH (7.35-7.45) ABG pCO2 (35-45) mmHg ABG pO2 (83-108) mmHg ABG HCO3 (21-25) mmol/L ABG Total CO2 (19-24) mmol/L ABG O2 Saturation (94-97) % ABG Hematocrit (34.0-46.0) % ABG Sodium (135-146) mmol/L ABG Potassium (3.4-4.5) mmol/L ABG Ionized Calcium (4.5-5.3) mg/dL ABG Glucose (75-99) mg/dL ABG Lactic Acid (0.5-1.6) mmol/L Hemoglobin (13.0-17.5) gm/dL Sodium 136 L (137-145) mmol/L Creatinine (0.66-1.25) mg/dL Glucose 127 H (74-99) mg/dL POC Glucose (mg/dL) 129 H (75-99) mg/dL Magnesium 2.4 H (1.6-2.3) mg/dL AST 79 H (17-59) U/L Alkaline Phosphatase 34 L (38-126) U/L Total Protein 4.8 L (6.3-8.2) g/dL Albumin 2.8 L (3.5-5.0) g/dL Arterial Blood Potassium (3.4-4.5) mmol/L Arterial Blood Glucose (75-99) mg/dL Crossmatch 07/24/18 07/24/18 07/24/18 Range/Units 14:25 14:59 15:54 WBC (3.8-10.6) k/uL RBC (4.30-5.90) m/uL Hgb (13.0-17.5) gm/dL Hct (39.0-53.0) % Plt Count (150-450) k/uL Neutrophils # (1.3-7.7) k/uL Neutrophils # (Manual) (1.3-7.7) k/uL Lymphocytes # (1.0-4.8) k/uL Lymphocytes # (Manual) (1.0-4.8) k/uL Monocytes # (0-1.0) k/uL ABG pH (7.35-7.45) ABG pCO2 46 H (35-45) mmHg ABG pO2 382 H (83-108) mmHg ABG HCO3 27 H (21-25) mmol/L ABG Total CO2 28 H (19-24) mmol/L ABG O2 Saturation 100.0 H (94-97) % ABG Hematocrit (34.0-46.0) % ABG Sodium (135-146) mmol/L ABG Potassium (3.4-4.5) mmol/L ABG Ionized Calcium (4.5-5.3) mg/dL ABG Glucose (75-99) mg/dL ABG Lactic Acid (0.5-1.6) mmol/L Hemoglobin (13.0-17.5) gm/dL Sodium (137-145) mmol/L Creatinine (0.66-1.25) mg/dL Glucose (74-99) mg/dL POC Glucose (mg/dL) 116 H 121 H (75-99) mg/dL Magnesium (1.6-2.3) mg/dL AST (17-59) U/L Alkaline Phosphatase (38-126) U/L Total Protein (6.3-8.2) g/dL Albumin (3.5-5.0) g/dL Arterial Blood Potassium (3.4-4.5) mmol/L Arterial Blood Glucose (75-99) mg/dL Crossmatch 07/24/18 07/24/18 07/24/18 Range/Units 16:50 16:51 16:54 WBC 35.1 H (3.8-10.6) k/uL RBC (4.30-5.90) m/uL Hgb (13.0-17.5) gm/dL Hct (39.0-53.0) % Plt Count (150-450) k/uL Neutrophils # 31.6 H (1.3-7.7) k/uL Neutrophils # (Manual) (1.3-7.7) k/uL Lymphocytes # (1.0-4.8) k/uL Lymphocytes # (Manual) (1.0-4.8) k/uL Monocytes # 2.0 H (0-1.0) k/uL ABG pH 7.34 L (7.35-7.45) ABG pCO2 (35-45) mmHg ABG pO2 142 H (83-108) mmHg ABG HCO3 (21-25) mmol/L ABG Total CO2 25 H (19-24) mmol/L ABG O2 Saturation 99.3 H (94-97) % ABG Hematocrit (34.0-46.0) % ABG Sodium (135-146) mmol/L ABG Potassium (3.4-4.5) mmol/L ABG Ionized Calcium (4.5-5.3) mg/dL ABG Glucose (75-99) mg/dL ABG Lactic Acid (0.5-1.6) mmol/L Hemoglobin (13.0-17.5) gm/dL Sodium (137-145) mmol/L Creatinine (0.66-1.25) mg/dL Glucose (74-99) mg/dL POC Glucose (mg/dL) 151 H (75-99) mg/dL Magnesium (1.6-2.3) mg/dL AST (17-59) U/L Alkaline Phosphatase (38-126) U/L Total Protein (6.3-8.2) g/dL Albumin (3.5-5.0) g/dL Arterial Blood Potassium (3.4-4.5) mmol/L Arterial Blood Glucose (75-99) mg/dL Crossmatch 07/24/18 07/24/18 07/24/18 Range/Units 17:33 18:00 19:03 WBC (3.8-10.6) k/uL RBC (4.30-5.90) m/uL Hgb (13.0-17.5) gm/dL Hct (39.0-53.0) % Plt Count (150-450) k/uL Neutrophils # (1.3-7.7) k/uL Neutrophils # (Manual) (1.3-7.7) k/uL Lymphocytes # (1.0-4.8) k/uL Lymphocytes # (Manual) (1.0-4.8) k/uL Monocytes # (0-1.0) k/uL ABG pH (7.35-7.45) ABG pCO2 (35-45) mmHg ABG pO2 (83-108) mmHg ABG HCO3 (21-25) mmol/L ABG Total CO2 (19-24) mmol/L ABG O2 Saturation (94-97) % ABG Hematocrit (34.0-46.0) % ABG Sodium (135-146) mmol/L ABG Potassium (3.4-4.5) mmol/L ABG Ionized Calcium (4.5-5.3) mg/dL ABG Glucose (75-99) mg/dL ABG Lactic Acid (0.5-1.6) mmol/L Hemoglobin (13.0-17.5) gm/dL Sodium (137-145) mmol/L Creatinine (0.66-1.25) mg/dL Glucose (74-99) mg/dL POC Glucose (mg/dL) 150 H 159 H 165 H (75-99) mg/dL Magnesium (1.6-2.3) mg/dL AST (17-59) U/L Alkaline Phosphatase (38-126) U/L Total Protein (6.3-8.2) g/dL Albumin (3.5-5.0) g/dL Arterial Blood Potassium (3.4-4.5) mmol/L Arterial Blood Glucose (75-99) mg/dL Crossmatch 07/24/18 07/24/18 07/24/18 Range/Units 20:05 20:08 21:10 WBC 30.0 H (3.8-10.6) k/uL RBC (4.30-5.90) m/uL Hgb (13.0-17.5) gm/dL Hct (39.0-53.0) % Plt Count (150-450) k/uL Neutrophils # (1.3-7.7) k/uL Neutrophils # (Manual) 29.10 H (1.3-7.7) k/uL Lymphocytes # (1.0-4.8) k/uL Lymphocytes # (Manual) 0.60 L (1.0-4.8) k/uL Monocytes # (0-1.0) k/uL ABG pH (7.35-7.45) ABG pCO2 (35-45) mmHg ABG pO2 (83-108) mmHg ABG HCO3 (21-25) mmol/L ABG Total CO2 (19-24) mmol/L ABG O2 Saturation (94-97) % ABG Hematocrit (34.0-46.0) % ABG Sodium (135-146) mmol/L ABG Potassium (3.4-4.5) mmol/L ABG Ionized Calcium (4.5-5.3) mg/dL ABG Glucose (75-99) mg/dL ABG Lactic Acid (0.5-1.6) mmol/L Hemoglobin (13.0-17.5) gm/dL Sodium (137-145) mmol/L Creatinine (0.66-1.25) mg/dL Glucose (74-99) mg/dL POC Glucose (mg/dL) 149 H 136 H (75-99) mg/dL Magnesium (1.6-2.3) mg/dL AST (17-59) U/L Alkaline Phosphatase (38-126) U/L Total Protein (6.3-8.2) g/dL Albumin (3.5-5.0) g/dL Arterial Blood Potassium (3.4-4.5) mmol/L Arterial Blood Glucose (75-99) mg/dL Crossmatch 07/24/18 07/24/18 07/24/18 Range/Units 21:14 22:08 23:06 WBC (3.8-10.6) k/uL RBC (4.30-5.90) m/uL Hgb (13.0-17.5) gm/dL Hct (39.0-53.0) % Plt Count (150-450) k/uL Neutrophils # (1.3-7.7) k/uL Neutrophils # (Manual) (1.3-7.7) k/uL Lymphocytes # (1.0-4.8) k/uL Lymphocytes # (Manual) (1.0-4.8) k/uL Monocytes # (0-1.0) k/uL ABG pH (7.35-7.45) ABG pCO2 (35-45) mmHg ABG pO2 (83-108) mmHg ABG HCO3 (21-25) mmol/L ABG Total CO2 (19-24) mmol/L ABG O2 Saturation (94-97) % ABG Hematocrit (34.0-46.0) % ABG Sodium (135-146) mmol/L ABG Potassium (3.4-4.5) mmol/L ABG Ionized Calcium (4.5-5.3) mg/dL ABG Glucose (75-99) mg/dL ABG Lactic Acid (0.5-1.6) mmol/L Hemoglobin (13.0-17.5) gm/dL Sodium 136 L (137-145) mmol/L Creatinine (0.66-1.25) mg/dL Glucose 146 H (74-99) mg/dL POC Glucose (mg/dL) 129 H 123 H (75-99) mg/dL Magnesium (1.6-2.3) mg/dL AST (17-59) U/L Alkaline Phosphatase (38-126) U/L Total Protein (6.3-8.2) g/dL Albumin (3.5-5.0) g/dL Arterial Blood Potassium (3.4-4.5) mmol/L Arterial Blood Glucose (75-99) mg/dL Crossmatch 07/25/18 07/25/18 07/25/18 Range/Units 00:07 01:11 02:08 WBC (3.8-10.6) k/uL RBC (4.30-5.90) m/uL Hgb (13.0-17.5) gm/dL Hct (39.0-53.0) % Plt Count (150-450) k/uL Neutrophils # (1.3-7.7) k/uL Neutrophils # (Manual) (1.3-7.7) k/uL Lymphocytes # (1.0-4.8) k/uL Lymphocytes # (Manual) (1.0-4.8) k/uL Monocytes # (0-1.0) k/uL ABG pH (7.35-7.45) ABG pCO2 (35-45) mmHg ABG pO2 (83-108) mmHg ABG HCO3 (21-25) mmol/L ABG Total CO2 (19-24) mmol/L ABG O2 Saturation (94-97) % ABG Hematocrit (34.0-46.0) % ABG Sodium (135-146) mmol/L ABG Potassium (3.4-4.5) mmol/L ABG Ionized Calcium (4.5-5.3) mg/dL ABG Glucose (75-99) mg/dL ABG Lactic Acid (0.5-1.6) mmol/L Hemoglobin (13.0-17.5) gm/dL Sodium (137-145) mmol/L Creatinine (0.66-1.25) mg/dL Glucose (74-99) mg/dL POC Glucose (mg/dL) 120 H 120 H 121 H (75-99) mg/dL Magnesium (1.6-2.3) mg/dL AST (17-59) U/L Alkaline Phosphatase (38-126) U/L Total Protein (6.3-8.2) g/dL Albumin (3.5-5.0) g/dL Arterial Blood Potassium (3.4-4.5) mmol/L Arterial Blood Glucose (75-99) mg/dL Crossmatch 07/25/18 07/25/18 07/25/18 Range/Units 03:13 04:14 04:26 WBC 26.5 H (3.8-10.6) k/uL RBC (4.30-5.90) m/uL Hgb 12.6 L (13.0-17.5) gm/dL Hct 38.3 L (39.0-53.0) % Plt Count (150-450) k/uL Neutrophils # 24.3 H (1.3-7.7) k/uL Neutrophils # (Manual) (1.3-7.7) k/uL Lymphocytes # 0.6 L (1.0-4.8) k/uL Lymphocytes # (Manual) (1.0-4.8) k/uL Monocytes # 1.4 H (0-1.0) k/uL ABG pH (7.35-7.45) ABG pCO2 (35-45) mmHg ABG pO2 (83-108) mmHg ABG HCO3 (21-25) mmol/L ABG Total CO2 (19-24) mmol/L ABG O2 Saturation (94-97) % ABG Hematocrit (34.0-46.0) % ABG Sodium (135-146) mmol/L ABG Potassium (3.4-4.5) mmol/L ABG Ionized Calcium (4.5-5.3) mg/dL ABG Glucose (75-99) mg/dL ABG Lactic Acid (0.5-1.6) mmol/L Hemoglobin (13.0-17.5) gm/dL Sodium (137-145) mmol/L Creatinine (0.66-1.25) mg/dL Glucose (74-99) mg/dL POC Glucose (mg/dL) 107 H 125 H (75-99) mg/dL Magnesium (1.6-2.3) mg/dL AST (17-59) U/L Alkaline Phosphatase (38-126) U/L Total Protein (6.3-8.2) g/dL Albumin (3.5-5.0) g/dL Arterial Blood Potassium (3.4-4.5) mmol/L Arterial Blood Glucose (75-99) mg/dL Crossmatch 07/25/18 07/25/18 07/25/18 Range/Units 04:26 06:04 06:58 WBC (3.8-10.6) k/uL RBC (4.30-5.90) m/uL Hgb (13.0-17.5) gm/dL Hct (39.0-53.0) % Plt Count (150-450) k/uL Neutrophils # (1.3-7.7) k/uL Neutrophils # (Manual) (1.3-7.7) k/uL Lymphocytes # (1.0-4.8) k/uL Lymphocytes # (Manual) (1.0-4.8) k/uL Monocytes # (0-1.0) k/uL ABG pH (7.35-7.45) ABG pCO2 (35-45) mmHg ABG pO2 (83-108) mmHg ABG HCO3 (21-25) mmol/L ABG Total CO2 (19-24) mmol/L ABG O2 Saturation (94-97) % ABG Hematocrit (34.0-46.0) % ABG Sodium (135-146) mmol/L ABG Potassium (3.4-4.5) mmol/L ABG Ionized Calcium (4.5-5.3) mg/dL ABG Glucose (75-99) mg/dL ABG Lactic Acid (0.5-1.6) mmol/L Hemoglobin (13.0-17.5) gm/dL Sodium 136 L (137-145) mmol/L Creatinine 0.58 L (0.66-1.25) mg/dL Glucose 126 H (74-99) mg/dL POC Glucose (mg/dL) 122 H 275 H (75-99) mg/dL Magnesium (1.6-2.3) mg/dL AST 107 H (17-59) U/L Alkaline Phosphatase (38-126) U/L Total Protein 5.4 L (6.3-8.2) g/dL Albumin 3.3 L (3.5-5.0) g/dL Arterial Blood Potassium (3.4-4.5) mmol/L Arterial Blood Glucose (75-99) mg/dL Crossmatch 07/25/18 07/25/18 07/25/18 Range/Units 07:22 08:19 09:08 WBC (3.8-10.6) k/uL RBC (4.30-5.90) m/uL Hgb (13.0-17.5) gm/dL Hct (39.0-53.0) % Plt Count (150-450) k/uL Neutrophils # (1.3-7.7) k/uL Neutrophils # (Manual) (1.3-7.7) k/uL Lymphocytes # (1.0-4.8) k/uL Lymphocytes # (Manual) (1.0-4.8) k/uL Monocytes # (0-1.0) k/uL ABG pH (7.35-7.45) ABG pCO2 (35-45) mmHg ABG pO2 (83-108) mmHg ABG HCO3 (21-25) mmol/L ABG Total CO2 (19-24) mmol/L ABG O2 Saturation (94-97) % ABG Hematocrit (34.0-46.0) % ABG Sodium (135-146) mmol/L ABG Potassium (3.4-4.5) mmol/L ABG Ionized Calcium (4.5-5.3) mg/dL ABG Glucose (75-99) mg/dL ABG Lactic Acid (0.5-1.6) mmol/L Hemoglobin (13.0-17.5) gm/dL Sodium (137-145) mmol/L Creatinine (0.66-1.25) mg/dL Glucose (74-99) mg/dL POC Glucose (mg/dL) 105 H 130 H 123 H (75-99) mg/dL Magnesium (1.6-2.3) mg/dL AST (17-59) U/L Alkaline Phosphatase (38-126) U/L Total Protein (6.3-8.2) g/dL Albumin (3.5-5.0) g/dL Arterial Blood Potassium (3.4-4.5) mmol/L Arterial Blood Glucose (75-99) mg/dL Crossmatch 07/25/18 Range/Units 10:14 WBC (3.8-10.6) k/uL RBC (4.30-5.90) m/uL Hgb (13.0-17.5) gm/dL Hct (39.0-53.0) % Plt Count (150-450) k/uL Neutrophils # (1.3-7.7) k/uL Neutrophils # (Manual) (1.3-7.7) k/uL Lymphocytes # (1.0-4.8) k/uL Lymphocytes # (Manual) (1.0-4.8) k/uL Monocytes # (0-1.0) k/uL ABG pH (7.35-7.45) ABG pCO2 (35-45) mmHg ABG pO2 (83-108) mmHg ABG HCO3 (21-25) mmol/L ABG Total CO2 (19-24) mmol/L ABG O2 Saturation (94-97) % ABG Hematocrit (34.0-46.0) % ABG Sodium (135-146) mmol/L ABG Potassium (3.4-4.5) mmol/L ABG Ionized Calcium (4.5-5.3) mg/dL ABG Glucose (75-99) mg/dL ABG Lactic Acid (0.5-1.6) mmol/L Hemoglobin (13.0-17.5) gm/dL Sodium (137-145) mmol/L Creatinine (0.66-1.25) mg/dL Glucose (74-99) mg/dL POC Glucose (mg/dL) 122 H (75-99) mg/dL Magnesium (1.6-2.3) mg/dL AST (17-59) U/L Alkaline Phosphatase (38-126) U/L Total Protein (6.3-8.2) g/dL Albumin (3.5-5.0) g/dL Arterial Blood Potassium (3.4-4.5) mmol/L Arterial Blood Glucose (75-99) mg/dL Crossmatch - Imaging and Cardiology Chest x-ray: report reviewed, image reviewed Assessment and Plan Assessment: 1. Status post complex mitral valve repair and coronary artery bypass grafting 1 with placement of his left internal mammary artery to his left anterior descending coronary artery. Clip ligation of the left atrial appendage, closure of P2, P3 cleft in the posterior mitral leaflet. 2. History of severe mitral valve regurgitation. 3. History of coronary artery disease. 4. Hyperlipidemia. Plan: 1. Continue aspirin, statin, Plavix, and beta skip. Will increase beta skip as tolerated. 2. Discontinue IV nitro. 3. Increase activity as tolerated. PT/OT and cardiac rehab following. 4. Wean oxygen as tolerated, encourage incentive spirometry use 10 times every hour while awake. 5. Bronchodilators per pulmonology. 6. Lasix 40 mg IV 1 now. 7. Will monitor daily labs and x-rays. Electrolyte replacement per protocol. 8. Pain control with current medication regimen. We will add Toradol. 9. Insulin management per primary care service. 10. GI prophylaxis with Protonix, DVT prophylaxis with subcu heparin and SCDs. 11. Will keep chest tubes, Cordis, arterial line, Anand catheter for another 24 hours. 12. Will discontinue [place] catheter today. 13. We will start the patient on his home dose of Claritin. 14. More recommendations to follow based on patient's clinical course. Time with Patient: Greater than 30
[2018-07-25] MEDS: ceFAZolin IN SWFI 2 GM/20 ML SYRINGE IVP SCH (12:28)
[2018-07-25] MEDS ORDERED: HYDROcodone/APAP 5-325MG 1 EACH TAB PO PRN ×2 (13:15)
[2018-07-25] MEDS ORDERED: BISACODYL 10 MG SUPP RECTAL PRN (13:17)
[2018-07-25] MEDS ORDERED: MAGNESIUM HYDROXIDE 2,400 MG/10 ML CUP PO PRN (13:17)
[2018-07-25 13:28] LABS: Glucose,Whole Blood 121 mg/dL (75-99)
[2018-07-25 13:28] LABS: Glucose,Whole Blood 127 mg/dL (75-99)
[2018-07-25 13:29] LABS: Glucose,Whole Blood 110 mg/dL (75-99)
[2018-07-25 14:03] LABS: Glucose,Whole Blood 115 mg/dL (75-99)
--- NOTE | 2018-07-25 14:48 | P.CRDCN ---
History of Present Illness Consult date: 07/25/18 History of present illness: This is a 68-year-old gentleman with history of coronary artery disease, severe mitral regurgitation secondary to ruptured chordae tendineae who underwent mitral valve repair with Edgar cord 2 and also annuloplasty with the #36 mm cardio medicsannular flex band along with bypass surgery with the TERRELL graft to the LAD. Surgery was performed yesterday. Patient seemed to be monitored in a stable. He is extubated and sitting in the chair. Complaints of being fatigued and tired. His cardiac index has been good. Patient has been maintaining sinus rhythm. His renal function is stable. Rest of the blood works reviewed. Overall patient seemed to progress fairly well. We'll continue current medical therapy Review of Systems Not obtained Past Medical History Past Medical History: Hyperlipidemia Additional Past Medical History / Comment(s): seasonal allergies History of Any Multi-Drug Resistant Organisms: None Reported Past Surgical History: Heart Catheterization Additional Past Surgical History / Comment(s): SHANICE x3 Past Anesthesia/Blood Transfusion Reactions: No Reported Reaction Smoking Status: Never smoker - Past Family History Brother(s) Family Medical History: Cancer Medications and Allergies Home Medications Medication Instructions Recorded Confirmed Type Aspirin 81 mg PO DAILY 07/21/18 07/25/18 History Atorvastatin [Lipitor] 40 mg PO HS 07/21/18 07/25/18 History L.acidoph,Paracasei, B.lactis 1 cap PO DAILY 07/21/18 07/25/18 History [Probiotic] Loratadine [Claritin] 10 mg PO DAILY 07/21/18 07/25/18 History Multivitamins, Thera [Multivitamin 1 tab PO DAILY 07/21/18 07/25/18 History (formulary)] Sildenafil Citrate [Viagra] 25 mg PO DAILY 07/21/18 07/25/18 History Allergies Allergy/AdvReac Type Severity Reaction Status Date / Time No Known Allergies Allergy Verified 07/25/18 07:19 Physical Exam Vitals: Vital Signs Temp Pulse Resp BP Pulse Ox 07/25/18 13:30 62 17 101/67 07/25/18 13:29 96 07/25/18 13:00 63 15 107/65 07/25/18 12:30 61 23 98 07/25/18 12:00 97.8 F 65 27 H 117/79 96 07/25/18 11:30 67 14 127/79 96 07/25/18 11:01 69 07/25/18 11:00 67 18 126/68 94 L 07/25/18 10:30 21 127/75 94 L 07/25/18 10:00 68 19 129/73 92 L 07/25/18 09:30 129/73 07/25/18 09:00 66 18 116/71 97 07/25/18 08:30 67 20 109/67 97 07/25/18 08:22 68 07/25/18 08:02 67 95 07/25/18 08:00 65 21 112/73 94 L 07/25/18 07:30 66 18 122/78 97 07/25/18 07:00 69 21 107/63 95 07/25/18 06:30 71 23 109/80 98 07/25/18 06:00 73 15 107/69 95 07/25/18 05:30 75 24 111/53 89 L 07/25/18 05:00 74 23 134/67 94 L 07/25/18 04:30 77 22 128/75 94 L 07/25/18 04:00 97.8 F 83 17 143/82 96 07/25/18 03:30 79 19 140/77 95 07/25/18 03:00 80 18 126/77 96 07/25/18 02:30 79 18 140/77 94 L 07/25/18 02:00 80 18 126/63 07/25/18 01:30 81 16 132/102 07/25/18 01:00 81 22 132/80 95 07/25/18 00:30 76 18 126/75 96 07/25/18 00:00 97.8 F 80 18 123/80 95 07/24/18 23:30 79 18 129/70 94 L 07/24/18 23:00 74 18 127/80 96 07/24/18 22:30 77 15 121/69 91 L 07/24/18 22:13 78 21 121/69 95 07/24/18 22:00 77 17 132/68 96 07/24/18 21:45 76 17 132/68 98 07/24/18 21:30 80 34 H 126/69 97 07/24/18 21:15 80 15 126/69 96 07/24/18 21:00 80 16 124/74 95 07/24/18 20:45 81 21 124/74 97 07/24/18 20:30 80 18 131/79 98 07/24/18 20:15 80 16 131/79 96 07/24/18 20:00 97.8 F 80 16 113/76 94 L 07/24/18 19:45 86 22 113/76 96 07/24/18 19:30 82 15 128/78 96 07/24/18 19:15 83 18 128/78 95 07/24/18 19:00 83 16 118/71 98 07/24/18 18:45 82 18 118/71 96 07/24/18 18:30 81 18 101/75 95 07/24/18 18:15 85 25 H 101/75 97 07/24/18 18:00 83 19 119/92 94 L 07/24/18 17:45 82 16 123/71 94 L 07/24/18 17:30 83 16 132/80 96 07/24/18 17:15 86 18 134/84 93 L 07/24/18 17:00 83 18 135/86 96 07/24/18 16:45 85 23 149/82 95 07/24/18 16:30 85 17 149/82 96 07/24/18 16:15 83 15 124/74 92 L 07/24/18 16:00 74 19 127/78 100 07/24/18 15:50 76 15 127/78 100 07/24/18 15:46 70 18 07/24/18 15:40 69 15 122/77 100 07/24/18 15:32 70 12 07/24/18 15:30 69 11 L 99 07/24/18 15:20 70 12 108/71 100 07/24/18 15:10 70 12 111/73 100 07/24/18 15:00 69 17 115/73 100 07/24/18 14:50 69 12 100 Intake and Output 07/24/18 07/25/18 07/25/18 22:59 06:59 14:59 Intake Total 559.922 662.238 960.747 Output Total 1028 640 950 Balance -468.078 22.238 10.747 Intake: IV 464.5 534.0 313.5 Lactated Ringers 1,000 ml 400 400 180 @ 20 mls/hr IV .Q24H [facility] Rx#:[id number] Nitroglycerin-D5w Pmx 50 17.5 12.0 10.5 mg In Dextrose/Water 1 250ml.bag @ 5 MCG/MIN 1.5 mls/hr IV .Q24H [facility] Rx#: [id number] ci/co 20 50 60 pressure bag 27 72 63 Intake, IV Titration 95.422 128.238 147.247 Amount ACETAMINOPHEN IV (For NPO 100 100 ) 1,000 mg In Empty Bag 1 bag @ 400 mls/hr IVPB Q6HR [facility] Rx#:[id number] Clevidipine Butyrate 25 47.967 mg In Empty Bag 1 bag @ 1 MG/HR 2 mls/hr IV .Q24H [facility] Rx#:[id number] Insulin Regular 100 unit 23.113 28.238 7.247 In Sodium Chloride 0.9% 100 ml @ Per Protocol IV .Q0M [facility] Rx#:[id number] Lactated Ringers 1,000 ml 40 @ 20 mls/hr IV .Q24H [facility] Rx#:[id number] Nitroglycerin-D5w Pmx 50 0.5 mg In Dextrose/Water 1 250ml.bag @ 5 MCG/MIN 1.5 mls/hr IV .Q24H [facility] Rx#: [id number] Propofol 1,000 mg In 23.842 Empty Bag 1 bag @ Titrate IV .Q0M [facility] Rx#: [id number] Oral 500 Output: Chest Tube Drainage 550 320 170 Left Pleural/Mediastinal 550 320 170 Urine 478 320 780 Other: Voiding Method Indwelling Catheter Indwelling Catheter Indwelling Catheter Weight 119.5 kg 119.5 kg ABP, PAP, CO, CI - Last 8 Hours Arterial Blood Pressure 124/56 Arterial Blood Pressure 131/59 Arterial Blood Pressure 131/59 Arterial Blood Pressure 136/65 Arterial Blood Pressure 153/64 Arterial Blood Pressure 156/74 Arterial Blood Pressure 130/65 Arterial Blood Pressure 119/65 Arterial Blood Pressure 152/65 Arterial Blood Pressure 137/61 Arterial Blood Pressure 125/64 Arterial Blood Pressure 131/64 Pulmonary Artery Pressure 38/15 Pulmonary Artery Pressure 40/13 Pulmonary Artery Pressure 38/16 Pulmonary Artery Pressure 38/24 Pulmonary Artery Pressure 38/13 Pulmonary Artery Pressure 40/17 Pulmonary Artery Pressure 36/18 Pulmonary Artery Pressure 39/16 Pulmonary Artery Pressure 42/14 Pulmonary Artery Pressure 46/16 Pulmonary Artery Pressure 38/22 Pulmonary Artery Pressure 35/14 Pulmonary Artery Pressure 36/15 Cardiac Output 4.6 Cardiac Output 4.6 Cardiac Output 4.6 Cardiac Output 5.6 Cardiac Output 7.7 Cardiac Index 2.0 Cardiac Index 2.5 GENERAL EXAM: Patient is alert and oriented and doesn't appear to be in any acute distress HEENT: Normocephalic. NECK: No masses, no nuchal rigidity. CHEST: No chest wall deformity. LUNGS: Diminished breath sounds at bases HEART: S1 and S2 normal ABDOMEN: Soft CENTRAL NERVOUS SYSTEM: No focal deficits. EXTREMITIES: No cyanosis, clubbing or edema. Results 07/25/18 04:26 07/25/18 04:26 Cardiac Enzymes 07/24/18 07/25/18 Range/Units 14:10 04:26 AST 79 H 107 H (17-59) U/L Coagulation 07/24/18 Range/Units 14:10 PT 11.8 (9.0-12.0) sec APTT 24.4 (22.0-30.0) sec CBC 07/24/18 07/24/18 07/24/18 Range/Units 14:10 16:54 20:08 WBC 27.8 H 35.1 H 30.0 H (3.8-10.6) k/uL RBC 4.10 L 4.42 4.51 (4.30-5.90) m/uL Hgb 12.0 L 13.3 13.0 (13.0-17.5) gm/dL Hct 35.8 L 39.0 39.9 (39.0-53.0) % Plt Count 141 L 209 200 (150-450) k/uL 07/25/18 Range/Units 04:26 WBC 26.5 H (3.8-10.6) k/uL RBC 4.41 (4.30-5.90) m/uL Hgb 12.6 L (13.0-17.5) gm/dL Hct 38.3 L (39.0-53.0) % Plt Count 187 (150-450) k/uL Comprehensive Metabolic Panel 07/24/18 07/24/18 07/25/18 Range/Units 14:10 21:14 04:26 Sodium 136 L 136 L 136 L (137-145) mmol/L Potassium 4.4 4.2 4.5 (3.5-5.1) mmol/L Chloride 106 103 104 (98-107) mmol/L Carbon Dioxide 27 27 26 (22-30) mmol/L BUN 14 15 19 (9-20) mg/dL Creatinine 0.69 0.67 0.58 L (0.66-1.25) mg/dL Glucose 127 H 146 H 126 H (74-99) mg/dL Calcium 8.4 8.6 8.5 (8.4-10.2) mg/dL AST 79 H 107 H (17-59) U/L ALT 38 37 (21-72) U/L Alkaline Phosphatase 34 L 49 (38-126) U/L Total Protein 4.8 L 5.4 L (6.3-8.2) g/dL Albumin 2.8 L 3.3 L (3.5-5.0) g/dL Current Medications Generic Name Dose Route Start Last Admin Trade Name Freq PRN Reason Stop Dose Admin Hydrocodone Bitart/Acetaminophen 2 each 07/25/18 13:15 Dumas 5-325 PO Q4HR PRN Severe Pain Hydrocodone Bitart/Acetaminophen 1 each 07/25/18 13:15 Dumas 5-325 PO Q4HR PRN Moderate Pain Albuterol/Ipratropium 3 ml 07/24/18 13:29 Duoneb 0.5 Mg-3 Mg/3 Ml Soln INHALATION RT-Q2H PRN Shortness Of Breath Or Wheezing Albuterol/Ipratropium 3 ml 07/24/18 20:00 07/25/18 11:02 Duoneb 0.5 Mg-3 Mg/3 Ml Soln INHALATION 3 ml RT-QID [facility] Administration Aspirin 325 mg 07/25/18 09:00 07/25/18 10:17 Aspirin PO 325 mg DAILY [facility] Administration Atorvastatin Calcium 40 mg 07/25/18 09:00 07/25/18 10:17 Lipitor PO 40 mg DAILY [facility] Administration Benzocaine/Menthol 1 each 07/24/18 13:29 Cepacol Lozenge MUCOUS MEM Q2H PRN Sore Throat Bisacodyl 10 mg 07/25/18 13:17 Dulcolax RECTAL DAILY PRN Constipation Clopidogrel Bisulfate 75 mg 07/25/18 09:00 07/25/18 10:17 Plavix PO 75 mg DAILY [facility] Administration Heparin Sodium (Porcine) 5,000 unit 07/25/18 00:00 07/25/18 09:16 Heparin SQ 5,000 unit Q8HR [facility] Administration Albumin Human 250 ml/ IV 250 mls @ 250 mls/hr 07/24/18 13:29 Solution IVPB 07/26/18 13:30 Q1HR PRN For Volume Amiodarone HCl 150 mg/ 103 mls @ 618 mls/hr 07/24/18 13:29 Dextrose/Water IV .Q10M PRN A.FIB/FLUTTER Protocol Amiodarone HCl 360 mg/ 200 mls @ 33.333 mls/hr 07/24/18 13:29 Dextrose/Water IV .Q6H PRN A.FIB/FLUTTER Protocol 1 MG/MIN Amiodarone HCl 300 mg/ 250 mls @ 25 mls/hr 07/24/18 13:29 Dextrose/Water IV .Q10H PRN A.FIB/FLUTTER Protocol 0.5 MG/MIN Calcium Chloride 1,000 mg/ 110 mls @ 100 mls/hr 07/24/18 13:29 Sodium Chloride IV 08/23/18 23:59 ONCE PRN Ionized Calcium less than 4.4 Insulin Human Regular 100 unit 101 mls @ 0 mls/hr 07/24/18 13:30 07/25/18 09:10 / Sodium Chloride IV 3 units/hr .Q0M [facility] 3.03 mls/hr Administration Protocol Per Protocol Lactated Ringer's 1,000 mls @ 20 mls/hr 07/24/18 13:29 07/25/18 10:19 Lactated Ringers IV 20 mls/hr .Q24H [facility] Administration Ketorolac Tromethamine 15 mg 07/25/18 12:00 07/25/18 11:10 Toradol IVP 07/29/18 09:12 15 mg Q6HR [facility] Administration Loratadine 10 mg 07/25/18 09:34 Claritin PO DAILY PRN Allergy Symptoms Magnesium Hydroxide 2,400 mg 07/25/18 13:17 Milk Of Magnesia PO BID PRN Constipation Metoclopramide HCl 10 mg 07/24/18 13:29 Reglan IVP Q4H PRN Nausea And Vomiting Metoprolol Tartrate 25 mg 07/24/18 22:30 07/25/18 10:16 Lopressor PO 25 mg BID [facility] Administration Miscellaneous Information 1 each 07/24/18 13:29 Magnesium Per Protocol MISCELLANE DAILY PRN Per Protocol Protocol Miscellaneous Information 1 each 07/24/18 13:29 Phosphorus Per Protocol MISCELLANE DAILY PRN Per Protocol Protocol Miscellaneous Information 1 each 07/24/18 13:29 Potassium Per Protocol MISCELLANE DAILY PRN Per Protocol Protocol Mupirocin 1 applic 07/24/18 21:00 07/25/18 10:17 Bactroban Oint NASAL 07/27/18 21:01 1 applic BID [facility] Administration Ondansetron HCl 4 mg 07/24/18 13:29 07/25/18 07:41 Zofran IVP 4 mg Q6HR PRN Administration Nausea And Vomiting Pantoprazole Sodium 40 mg 07/26/18 07:30 Protonix PO AC-BRKFST [facility] Senna/Docusate Sodium 2 each 07/25/18 21:00 Senokot-S PO HS [facility] Sodium Chloride 10 ml 07/24/18 21:00 07/25/18 10:18 Saline Flush IV 10 ml BID [facility] Administration Intake and Output 07/24/18 07/25/18 07/25/18 22:59 06:59 14:59 Intake Total 559.922 662.238 960.747 Output Total 1028 640 950 Balance -468.078 22.238 10.747 Intake: IV 464.5 534.0 313.5 Lactated Ringers 1,000 ml 400 400 180 @ 20 mls/hr IV .Q24H [facility] Rx#:[id number] Nitroglycerin-D5w Pmx 50 17.5 12.0 10.5 mg In Dextrose/Water 1 250ml.bag @ 5 MCG/MIN 1.5 mls/hr IV .Q24H [facility] Rx#: [id number] ci/co 20 50 60 pressure bag 27 72 63 Intake, IV Titration 95.422 128.238 147.247 Amount ACETAMINOPHEN IV (For NPO 100 100 ) 1,000 mg In Empty Bag 1 bag @ 400 mls/hr IVPB Q6HR [facility] Rx#:[id number] Clevidipine Butyrate 25 47.967 mg In Empty Bag 1 bag @ 1 MG/HR 2 mls/hr IV .Q24H [facility] Rx#:[id number] Insulin Regular 100 unit 23.113 28.238 7.247 In Sodium Chloride 0.9% 100 ml @ Per Protocol IV .Q0M [facility] Rx#:[id number] Lactated Ringers 1,000 ml 40 @ 20 mls/hr IV .Q24H [facility] Rx#:[id number] Nitroglycerin-D5w Pmx 50 0.5 mg In Dextrose/Water 1 250ml.bag @ 5 MCG/MIN 1.5 mls/hr IV .Q24H [facility] Rx#: [id number] Propofol 1,000 mg In 23.842 Empty Bag 1 bag @ Titrate IV .Q0M [facility] Rx#: [id number] Oral 500 Output: Chest Tube Drainage 550 320 170 Left Pleural/Mediastinal 550 320 170 Urine 478 320 780 Other: Voiding Method Indwelling Catheter Indwelling Catheter Indwelling Catheter Weight 119.5 kg 119.5 kg Patient Weight 07/26/18 06:59 Weight 119.5 kg 07/25/18 04:26 07/25/18 04:26 Assessment and Plan (1) Status post mitral valve repair Current Visit: Yes Status: Acute Code(s): Z98.890 - OTHER SPECIFIED POSTPROCEDURAL STATES SNOMED Code(s): 704523391 (2) Status post coronary artery bypass graft Current Visit: Yes Status: Acute Code(s): Z95.1 - PRESENCE OF AORTOCORONARY BYPASS GRAFT SNOMED Code(s): 307234910 Plan: Patient is clinically progressing fairly well. No arrhythmias noted. Cardiac index is a very good. We'll continue current medical therapy. Incentive spirometry. Will follow along with you
[2018-07-25 15:15] LABS: Glucose,Whole Blood 118 mg/dL (75-99)
[2018-07-25 16:44] LABS: Glucose,Whole Blood 112 mg/dL (75-99)
[2018-07-25 17:13] LABS: Glucose,Whole Blood 149 mg/dL (75-99)
[2018-07-25 18:12] LABS: Glucose,Whole Blood 192 mg/dL (75-99)
[2018-07-25 18:12] LABS: Glucose,Whole Blood 193 mg/dL (75-99)
[2018-07-25 19:13] LABS: Glucose,Whole Blood 148 mg/dL (75-99)
[2018-07-25] MEDS: SENNOSIDES-DOCUSATE SODIUM 1 EACH TAB PO SCH (20:25)
[2018-07-25 20:30] LABS: Glucose,Whole Blood 124 mg/dL (75-99)
[2018-07-25] MEDS ORDERED: INSULIN DETEMIR (LEVEMIR) 100 UNIT/ML SYR SQ SCH (21:15)
[2018-07-25 21:25] LABS: Glucose,Whole Blood 110 mg/dL (75-99)
[2018-07-25 23:23] LABS: Glucose,Whole Blood 95 mg/dL (75-99)
--- NOTE | 2018-07-26 00:19 | PN ---
PROGRESS NOTE DATE OF SERVICE: 07/25/2018. PRESENTING COMPLAINT: Coronary bypass. INTERVAL HISTORY: Patient is status post coronary bypass, doing better. Sitting up. Did tolerate some diet. Looks more perky on nasal cannula. REVIEW OF SYSTEMS: Done for constitutional, cardiovascular, GI, pulmonary; relevant findings as above. CURRENT MEDICATIONS: Reviewed that include DuoNeb, received IV amiodarone. PHYSICAL EXAMINATION: Temperature 98, pulse 62, respiration 23, blood pressure 106/59, pulse ox 94 percent on 2 L. GENERAL APPEARANCE: Sitting up awake. EYES: Pupils equal. Conjunctivae normal. NECK: JVD unable to assess. Mass not palpable. RESPIRATORY: Effort increased. LUNGS: Decreased breath sounds. CARDIOVASCULAR: Heart sounds muffled, no edema. ABDOMEN: Soft nontender. Liver and spleen not palpable. PSYCHIATRY: Awake, answering questions appropriately. INVESTIGATIONS: White count 26.5, hemoglobin 12.6, potassium 4.5, BUN 19, creatinine 0.5. Accu-Cheks are noted. ASSESSMENT: 1. Status post coronary bypass. 2. Mitral valve repair with annuloplasty. 3. Hyperlipidemia. 4. Obesity; BMI 34.4. 5. Leukocytosis, likely reactive to surgery. Currently no evidence of infection. 6. Hypoalbuminemia as an acute phase reactant. 7. Hyperglycemia, uncontrolled. Patient on insulin drip. PLAN: Patient will be switched over to Lantus with scheduled Humalog. Follow care closely. Care was discussed with the patient. Will keep a close eye on patient's white count currently. Clinically, there is no evidence of any infection at the present time. MMODL / IJN: [id number] /
[2018-07-26] MEDS: KETOROLAC 30 MG/ML 1 ML VIAL IVP SCH ×3 (05:08→18:49)
[2018-07-26 05:20] LABS: Basophils % (A) 0 %; Eosinophils % (A) 0 %; HCT 31.7 % (39.0-53.0); HGB 10.5 gm/dL (13.0-17.5); Lymphocytes # (A) 1.1 k/uL (1.0-4.8); Lymphocytes % (A) 5 %; MCH 29.2 pg (25.0-35.0); MCHC 33.1 g/dL (31.0-37.0); MCV 88.2 fL (80.0-100.0); Mean Platelet Volume 9.7; Monocytes # (A) 1.2 k/uL (0-1.0); Monocytes % (A) 5 %; Neutrophils # (A) 20.9 k/uL (1.3-7.7); Neutrophils % (A) 89 %; Platelet Count 143 k/uL (150-450); RBC 3.59 m/uL (4.30-5.90); RDW 13.6 % (11.5-15.5); WBC 23.4 k/uL (3.8-10.6)
[2018-07-26 05:28] LABS: Ionized Calcium 4.8 mg/dL (4.5-5.3)
[2018-07-26 06:21] LABS: ALT 34 U/L (21-72); AST 92 U/L (17-59); Albumin 2.7 g/dL (3.5-5.0); Alkaline Phosphatase 54 U/L (38-126); Anion Gap 5 mmol/L; Blood Urea Nitrogen 31 mg/dL (9-20); Calcium 8.3 mg/dL (8.4-10.2); Carbon Dioxide 27 mmol/L (22-30); Chloride 101 mmol/L (98-107); Glucose 111 mg/dL (74-99); Potassium 4.3 mmol/L (3.5-5.1); Sodium 133 mmol/L (137-145); Total Bilirubin 1.2 mg/dL (0.2-1.3); Total Protein 4.8 g/dL (6.3-8.2)
[2018-07-26 07:06] LABS: Glucose,Whole Blood 105 mg/dL (75-99)
[2018-07-26] MEDS: PANTOPRAZOLE 40 MG TABLET PO SCH (07:12)
[2018-07-26] MEDS: INSULIN ASPART (NovoLOG) 100 UNIT/ML VIAL SQ SCH ×8 (07:13→21:19)
--- NOTE | 2018-07-26 07:28 | XR ---
EXAMINATION TYPE: XR chest 1V portable DATE OF EXAM: 07/26/2018 COMPARISON: 07/25/2018 HISTORY: Status post cardiac surgery. Follow-up exam. Tube placement. TECHNIQUE: Single frontal view of the chest is obtained. FINDINGS: There is a persistent retrocardiac opacity and right basilar atelectasis. Left-sided centr al venous catheter, mediastinal drains, post CABG changes the chest, and left-sided thoracostomy tube are relatively unchanged in position. No appreciable pneumothorax. IMPRESSION: Stable lines and tubes, stable bibasilar atelectasis, and stable postoperative change of the mediastinum.
[2018-07-26] MEDS: ATORVASTATIN 40 MG TAB PO SCH (08:00)
[2018-07-26] MEDS: CLOPIDOGREL 75 MG TAB PO SCH (08:00)
[2018-07-26] MEDS: ASPIRIN 325 MG TAB PO SCH (08:00)
[2018-07-26] MEDS: METOPROLOL TARTRATE 25 MG TAB PO SCH ×2 (08:00→21:17)
[2018-07-26] MEDS: IPRATROPIUM-ALBUTEROL 3 ML NEB INHALATION SCH ×4 (08:01→20:24)
[2018-07-26] MEDS: HEPARIN SODIUM,PORCINE 5,000 UNIT/ML 1 ML VIAL SQ SCH ×2 (08:03→15:48)
[2018-07-26] MEDS: MUPIROCIN 2% OINT 22 GM TUBE NASAL SCH ×2 (08:10→21:16)
--- NOTE | 2018-07-26 11:39 | P.PN ---
Subjective Progress Note Date: 07/26/18 Principal diagnosis: Status post mitral valve repair and CABG times one. Postoperative day #2 This is a 68-year-old white male with history of severe mitral valve regurgitation, coronary artery disease, torn chordae 2 P2 the posterior leaflet. Patient underwent complex mitral valve repair today, with Edgar cords 2 and repair of posterior leaflet. During annuloplasty with #36 mm [employer] annular flex band. Patient also underwent coronary artery bypass grafting 1 with TERRELL to LAD. Postoperatively patient was on mechanical ventilation, and I was asked to see him on consultation. Patient is presently in the intensive care unit, his ventilator settings are IMV rate of 12, tidal volume of 550, PEEP of 10, and FiO2 initially was at 100% and I cut it down to 45%. ABG in the ICU showed a pO2 of 382 pCO2 of 46 pH of 7.37. Chest x-ray was reviewed, the endotracheal tube was noted in the right mainstem bronchus, however it was earlier removed by the surgeon on the case before the patient came up to the ICU. No follow-up chest x-ray was done since the tube was adjusted. Patient was reevaluated today on 07/25/2018, remains in the ICU, he was weaned and extubated a few hours after he arrived to the ICU. Patient is now on nasal cannula, seems to be doing fairly well. Denies any cough no wheezing no shortness of breath. His chest x-ray did show some atelectasis at the left lower lobe, and that is expected after such surgery. His WBC count is elevated today at 26.5, however it was 30.0 yesterday. Basic metabolic profile is normal, renal profile is normal. Patient is not doing well with incentive spirometry, hence I instructed him on the use of the incentive spirometer, and encouraged him to use it more often. Reevaluated today on 07/26/2018, remains in the ICU, doing fairly well, on few liters nasal cannula. Patient is relatively asymptomatic, no cough no wheezing no shortness of breath, and no chest pain.chest x-ray was reviewed and it showed mostly atelectasis of the left base, otherwise no significant findings.left sided chest tube remains in place. CBC WBC count is 23.4 hemoglobin is 10.5, renal profile is normal. Patient O2 saturation is 97% on 1.5 L nasal cannula. Objective - Vital Signs Vital signs: Vital Signs Temp 98.2 F 07/26/18 08:00 Pulse 74 07/26/18 11:11 Resp 24 07/26/18 11:00 BP 125/55 07/26/18 11:00 Pulse Ox 95 07/26/18 11:00 Intake & Output 07/25/18 07/26/18 07/26/18 18:59 06:59 18:59 Intake Total 1135.093 641.457 449 Output Total 1270 675 405 Balance -134.907 -33.543 44 Weight 119.5 kg 117.9 kg Intake: IV 463.0 279 49 Lactated Ringers 1,000 ml 280 240 40 @ 20 mls/hr IV .Q24H [facility] Rx#:[id number] Nitroglycerin-D5w Pmx 50 15.0 mg In Dextrose/Water 1 250ml.bag @ 5 MCG/MIN 1.5 mls/hr IV .Q24H [facility] Rx#: [id number] ci/co 60 pressure bag 108 39 9 Intake, IV Titration 172.093 12.457 Amount ACETAMINOPHEN IV (For NPO 100 ) 1,000 mg In Empty Bag 1 bag @ 400 mls/hr IVPB Q6HR [facility] Rx#:[id number] Insulin Regular 100 unit 32.093 12.457 In Sodium Chloride 0.9% 100 ml @ Per Protocol IV .Q0M [facility] Rx#:[id number] Lactated Ringers 1,000 ml 40 @ 20 mls/hr IV .Q24H [facility] Rx#:[id number] Oral 500 350 400 Output: Chest Tube Drainage 280 190 140 Left Pleural/Mediastinal 280 190 140 Urine 990 485 265 Other: Voiding Method Indwelling Catheter Indwelling Catheter Indwelling Catheter ABP, PAP, CO, CI - Last Documented Arterial Blood Pressure 110/51 Pulmonary Artery Pressure 37/18 Cardiac Output 4.6 Cardiac Index 2.0 - Exam Physical Exam: Revealed a 68-year-old white male sitting at bedside , O2 saturation is 97% on 1.5 L nasal cannula. Asymptomatic Head: Atraumatic, normocephalic. HEENT:[Neck is supple.] [No neck masses.] [No thyromegaly.] [No JVD.] Chest: [Crackles and rhonchi at the bases especially at the left base.]left- sided chest tube remains in place for Cardiac Exam: [Normal S1 and S2, no S3 gallop, 2/6 systolic murmur thought the precordium.] Abdomen: [Obese, Soft, nontender, no megaly, no rebound, no guarding, normal bowel sounds.] Extremities: [No clubbing, no edema, no cyanosis.] Neurological Exam: [No focal neurologic deficit.] Alert oriented 3. Psychiatric: Normal mood affect and mental status examination. lymphatics: No lymphadenopathy. - Labs CBC & Chem 7: 07/26/18 05:00 07/26/18 05:00 Labs: Abnormal Lab Results - Last 24 Hours (Table) 07/25/18 07/25/18 07/25/18 Range/Units 11:07 12:04 13:13 WBC (3.8-10.6) k/uL RBC (4.30-5.90) m/uL Hgb (13.0-17.5) gm/dL Hct (39.0-53.0) % Plt Count (150-450) k/uL Neutrophils # (1.3-7.7) k/uL Monocytes # (0-1.0) k/uL Sodium (137-145) mmol/L BUN (9-20) mg/dL Glucose (74-99) mg/dL POC Glucose (mg/dL) 121 H 127 H 110 H (75-99) mg/dL Calcium (8.4-10.2) mg/dL AST (17-59) U/L Total Protein (6.3-8.2) g/dL Albumin (3.5-5.0) g/dL 07/25/18 07/25/18 07/25/18 Range/Units 14:00 15:00 16:17 WBC (3.8-10.6) k/uL RBC (4.30-5.90) m/uL Hgb (13.0-17.5) gm/dL Hct (39.0-53.0) % Plt Count (150-450) k/uL Neutrophils # (1.3-7.7) k/uL Monocytes # (0-1.0) k/uL Sodium (137-145) mmol/L BUN (9-20) mg/dL Glucose (74-99) mg/dL POC Glucose (mg/dL) 115 H 118 H 112 H (75-99) mg/dL Calcium (8.4-10.2) mg/dL AST (17-59) U/L Total Protein (6.3-8.2) g/dL Albumin (3.5-5.0) g/dL 07/25/18 07/25/18 07/25/18 Range/Units 17:11 18:07 18:09 WBC (3.8-10.6) k/uL RBC (4.30-5.90) m/uL Hgb (13.0-17.5) gm/dL Hct (39.0-53.0) % Plt Count (150-450) k/uL Neutrophils # (1.3-7.7) k/uL Monocytes # (0-1.0) k/uL Sodium (137-145) mmol/L BUN (9-20) mg/dL Glucose (74-99) mg/dL POC Glucose (mg/dL) 149 H 192 H 193 H (75-99) mg/dL Calcium (8.4-10.2) mg/dL AST (17-59) U/L Total Protein (6.3-8.2) g/dL Albumin (3.5-5.0) g/dL 07/25/18 07/25/18 07/25/18 Range/Units 19:10 20:23 21:23 WBC (3.8-10.6) k/uL RBC (4.30-5.90) m/uL Hgb (13.0-17.5) gm/dL Hct (39.0-53.0) % Plt Count (150-450) k/uL Neutrophils # (1.3-7.7) k/uL Monocytes # (0-1.0) k/uL Sodium (137-145) mmol/L BUN (9-20) mg/dL Glucose (74-99) mg/dL POC Glucose (mg/dL) 148 H 124 H 110 H (75-99) mg/dL Calcium (8.4-10.2) mg/dL AST (17-59) U/L Total Protein (6.3-8.2) g/dL Albumin (3.5-5.0) g/dL 07/26/18 07/26/18 07/26/18 Range/Units 05:00 05:00 07:03 WBC 23.4 H (3.8-10.6) k/uL RBC 3.59 L (4.30-5.90) m/uL Hgb 10.5 L (13.0-17.5) gm/dL Hct 31.7 L (39.0-53.0) % Plt Count 143 L (150-450) k/uL Neutrophils # 20.9 H (1.3-7.7) k/uL Monocytes # 1.2 H (0-1.0) k/uL Sodium 133 L (137-145) mmol/L BUN 31 H (9-20) mg/dL Glucose 111 H (74-99) mg/dL POC Glucose (mg/dL) 105 H (75-99) mg/dL Calcium 8.3 L (8.4-10.2) mg/dL AST 92 H (17-59) U/L Total Protein 4.8 L (6.3-8.2) g/dL Albumin 2.7 L (3.5-5.0) g/dL Assessment and Plan Assessment: Impression: 1 status post complex mitral valve repair and coronary artery bypass grafting 1, TERRELL to LAD. Status post clip ligation of left atrial appendage and closure of P2, P3 cleft in the posterior mitral leaflet. Postoperative day #2 2 history of severe mitral regurgitation 3 history of coronary artery disease. 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 5 postoperative left lower lobe atelectasis, expected after surgery. Recommendation: Continue incentive spirometry, bronchodilators, encourage deep coughing deep breathing, ambulate, cardiac meds as listed. encouraged to use incentive spirometry more often, will ambulate, we'll continue to monitor in the ICU. Time with Patient: Less than 30
--- NOTE | 2018-07-26 11:40 | P.PN ---
Subjective Progress Note Date: 07/26/18 Principal diagnosis: Severe mitral valve regurgitation, coronary artery disease, obesity with a BMI of 37.8 kg/m and hyperlipidemia. POD #2 complex mitral valve repair with zack-cords 2 pair to P2 of the posterior leaflet, ring annuloplasty with a #36 mm [employer] annular flex band. Coronary artery bypass grafting 1 with left internal mammary artery to left anterior descending coronary artery. Clip ligation of the left atrial appendage with a #40 mm Atriclip. Closure of P2, P3 cleft in the posterior mitral leaflet. Intraoperative transesophageal echocardiogram. Patient is sitting up to the bedside chair. He is in no acute distress. He denies any complaints of pain or shortness of breath at this time. He is hemodynamically stable. He is achieving 750 mL on his incentive spirometry with encouragement. WBC count this morning is 23.4, hemoglobin 10.5. Mediastinal and left pleural chest tubes remain in place to low continuous wall suction, draining thin serosanguineous drainage. No air leaks present. Currently on 2 L of oxygen nasal cannula with oxygen saturation is 97%. He reports he ambulated in the intensive care unit always 3 times yesterday with minimal assistance. He is tolerating oral intake and reports that he has had some bouts of nausea but denies any vomiting. Objective - Vital Signs Vital signs: Vital Signs Temp 98.2 F 07/26/18 08:00 Pulse 65 07/26/18 09:00 Resp 21 07/26/18 09:00 BP 113/56 07/26/18 09:00 Pulse Ox 97 07/26/18 09:00 Intake & Output 07/25/18 07/26/18 07/26/18 18:59 06:59 18:59 Intake Total 1135.093 641.457 449 Output Total 1270 675 95 Balance -134.907 -33.543 354 Weight 119.5 kg 117.9 kg Intake: IV 463.0 279 49 Lactated Ringers 1,000 ml 280 240 40 @ 20 mls/hr IV .Q24H MILLI Rx#:[id number] Nitroglycerin-D5w Pmx 50 15.0 mg In Dextrose/Water 1 250ml.bag @ 5 MCG/MIN 1.5 mls/hr IV .Q24H MILLI Rx#: [id number] ci/co 60 pressure bag 108 39 9 Intake, IV Titration 172.093 12.457 Amount ACETAMINOPHEN IV (For NPO 100 ) 1,000 mg In Empty Bag 1 bag @ 400 mls/hr IVPB Q6HR MILLI Rx#:[id number] Insulin Regular 100 unit 32.093 12.457 In Sodium Chloride 0.9% 100 ml @ Per Protocol IV .Q0M MILLI Rx#:[id number] Lactated Ringers 1,000 ml 40 @ 20 mls/hr IV .Q24H MILLI Rx#:[id number] Oral 500 350 400 Output: Chest Tube Drainage 280 190 30 Left Pleural/Mediastinal 280 190 30 Urine 990 485 65 Other: Voiding Method Indwelling Catheter Indwelling Catheter Indwelling Catheter ABP, PAP, CO, CI - Last Documented Arterial Blood Pressure 110/51 Pulmonary Artery Pressure 37/18 Cardiac Output 4.6 Cardiac Index 2.0 - Constitutional General appearance: Present: cooperative, no acute distress, obese - Respiratory Details: Lung sounds are essentially clear throughout, diminished to his bilateral bases. Respirations are symmetrical and nonlabored. Oxygen saturation are 97% on 2 L nasal cannula. He is achieving 750 mL on his incentive spirometry. Mediastinal and left pleural chest tubes in place to low continuous wall suction -20 cm H2O. No air leak is present. Chest tubes are draining thin serosanguineous drainage. 400 mL output in the last 24 hours, 105 mL output in the last 8 hours. - Cardiovascular Details: Regular rhythm and rate. S1 and S2 present, negative for S3, gallop or murmur. Sternum is stable. Bedside telemetry showing normal sinus rhythm heart rate 63. Ventricular epicardial pacemaker wires in place and grounded. Heart hugger is in place and he is demonstrating appropriate use. Knee-high VANESSA hose and sequential compression devices in place to his bilateral lower extremities. Left subclavian Cordis in place and connected to continuous CVP monitoring. Right radial arterial line in place and functioning. - Gastrointestinal Gastrointestinal Comment(s): Abdomen is soft, nontender and nondistended. Active bowel sounds all 4 abdominal quadrants. Tolerating clear liquid diet. Passing flatus. No guarding or rigidity. No organomegaly. - Genitourinary Genitourinary Comment(s): Anand catheter for accurate I&O. Draining clear yellow urine. 345 mL output in the last 8 hours. - Integumentary Integumentary Comment(s): Skin is warm and dry. No clubbing or cyanosis is present. Midline sternal incision is clean, dry and approximated. No drainage or redness is present. Gauze dressing is clean, dry and intact. - Neurologic Neurologic: Present: CNII-XII intact - Musculoskeletal Musculoskeletal: Present: gait normal, strength equal bilaterally - Psychiatric Psychiatric: Present: A&O x's 3, appropriate affect, intact judgment & insight - Allied health notes Allied health notes reviewed: nursing - Labs CBC & Chem 7: 07/26/18 05:00 07/26/18 05:00 Labs: Abnormal Lab Results - Last 24 Hours (Table) 07/25/18 07/25/18 07/25/18 Range/Units 10:14 11:07 12:04 WBC (3.8-10.6) k/uL RBC (4.30-5.90) m/uL Hgb (13.0-17.5) gm/dL Hct (39.0-53.0) % Plt Count (150-450) k/uL Neutrophils # (1.3-7.7) k/uL Monocytes # (0-1.0) k/uL Sodium (137-145) mmol/L BUN (9-20) mg/dL Glucose (74-99) mg/dL POC Glucose (mg/dL) 122 H 121 H 127 H (75-99) mg/dL Calcium (8.4-10.2) mg/dL AST (17-59) U/L Total Protein (6.3-8.2) g/dL Albumin (3.5-5.0) g/dL 07/25/18 07/25/18 07/25/18 Range/Units 13:13 14:00 15:00 WBC (3.8-10.6) k/uL RBC (4.30-5.90) m/uL Hgb (13.0-17.5) gm/dL Hct (39.0-53.0) % Plt Count (150-450) k/uL Neutrophils # (1.3-7.7) k/uL Monocytes # (0-1.0) k/uL Sodium (137-145) mmol/L BUN (9-20) mg/dL Glucose (74-99) mg/dL POC Glucose (mg/dL) 110 H 115 H 118 H (75-99) mg/dL Calcium (8.4-10.2) mg/dL AST (17-59) U/L Total Protein (6.3-8.2) g/dL Albumin (3.5-5.0) g/dL 07/25/18 07/25/18 07/25/18 Range/Units 16:17 17:11 18:07 WBC (3.8-10.6) k/uL RBC (4.30-5.90) m/uL Hgb (13.0-17.5) gm/dL Hct (39.0-53.0) % Plt Count (150-450) k/uL Neutrophils # (1.3-7.7) k/uL Monocytes # (0-1.0) k/uL Sodium (137-145) mmol/L BUN (9-20) mg/dL Glucose (74-99) mg/dL POC Glucose (mg/dL) 112 H 149 H 192 H (75-99) mg/dL Calcium (8.4-10.2) mg/dL AST (17-59) U/L Total Protein (6.3-8.2) g/dL Albumin (3.5-5.0) g/dL 07/25/18 07/25/18 07/25/18 Range/Units 18:09 19:10 20:23 WBC (3.8-10.6) k/uL RBC (4.30-5.90) m/uL Hgb (13.0-17.5) gm/dL Hct (39.0-53.0) % Plt Count (150-450) k/uL Neutrophils # (1.3-7.7) k/uL Monocytes # (0-1.0) k/uL Sodium (137-145) mmol/L BUN (9-20) mg/dL Glucose (74-99) mg/dL POC Glucose (mg/dL) 193 H 148 H 124 H (75-99) mg/dL Calcium (8.4-10.2) mg/dL AST (17-59) U/L Total Protein (6.3-8.2) g/dL Albumin (3.5-5.0) g/dL 07/25/18 07/26/18 07/26/18 Range/Units 21:23 05:00 05:00 WBC 23.4 H (3.8-10.6) k/uL RBC 3.59 L (4.30-5.90) m/uL Hgb 10.5 L (13.0-17.5) gm/dL Hct 31.7 L (39.0-53.0) % Plt Count 143 L (150-450) k/uL Neutrophils # 20.9 H (1.3-7.7) k/uL Monocytes # 1.2 H (0-1.0) k/uL Sodium 133 L (137-145) mmol/L BUN 31 H (9-20) mg/dL Glucose 111 H (74-99) mg/dL POC Glucose (mg/dL) 110 H (75-99) mg/dL Calcium 8.3 L (8.4-10.2) mg/dL AST 92 H (17-59) U/L Total Protein 4.8 L (6.3-8.2) g/dL Albumin 2.7 L (3.5-5.0) g/dL 07/26/18 Range/Units 07:03 WBC (3.8-10.6) k/uL RBC (4.30-5.90) m/uL Hgb (13.0-17.5) gm/dL Hct (39.0-53.0) % Plt Count (150-450) k/uL Neutrophils # (1.3-7.7) k/uL Monocytes # (0-1.0) k/uL Sodium (137-145) mmol/L BUN (9-20) mg/dL Glucose (74-99) mg/dL POC Glucose (mg/dL) 105 H (75-99) mg/dL Calcium (8.4-10.2) mg/dL AST (17-59) U/L Total Protein (6.3-8.2) g/dL Albumin (3.5-5.0) g/dL - Imaging and Cardiology Chest x-ray: report reviewed, image reviewed Assessment and Plan Assessment: 1. Status post complex mitral valve repair and coronary artery bypass grafting 1 with placement of his left internal mammary artery to his left anterior descending coronary artery. Clip ligation of the left atrial appendage, closure of P2, P3 cleft in the posterior mitral leaflet. 2. History of severe mitral valve regurgitation. 3. History of coronary artery disease. 4. Hyperlipidemia. Plan: 1. Continue aspirin, statin, Plavix, and beta skip. Will increase beta skip as tolerated. 2. Discontinue mediastinal and keep left pleural chest tube to low continuous wall suction. 3. Increase activity as tolerated. PT/OT and cardiac rehab following. 4. Wean oxygen as tolerated, encourage incentive spirometry use 10 times every hour while awake. 5. Bronchodilators per pulmonology. 6. Discontinue Anand catheter, left subclavian Cordis and right radial arterial line today. 7. Will monitor daily labs and x-rays. Electrolyte replacement per protocol. 8. Pain control with current medication regimen. 9. Insulin management per primary care service. 10. GI prophylaxis with Protonix, DVT prophylaxis with subcu heparin and SCDs. 11. Remove epicardial pacemaker wires. Bedrest for 1 hour post pacemaker wire removal. 12. More recommendations to follow based on patient's clinical course. Ventricular pacemaker wires removed today at 11 AM. He will be on bedrest for 1 hour post pacemaker wire removal. Mediastinal chest tube removed without incident. 4 x 4 gauze to cover, Vaseline impregnated gauze to cover and secured with tape. Time with Patient: Greater than 30
[2018-07-26 11:49] LABS: Glucose,Whole Blood 116 mg/dL (75-99)
[2018-07-26] MEDS: LACTATED RINGERS 1,000 ML IV SCH (12:09)
[2018-07-26] MEDS: DEXTROSE 5% IN WATER 100 ML with AMIODARONE 150 MG IV PRN ×4 (12:38→15:48)
[2018-07-26 17:05] LABS: Glucose,Whole Blood 127 mg/dL (75-99)
--- NOTE | 2018-07-26 17:28 | P.PN ---
Subjective Progress Note Date: 07/26/18 This patient is a status post mitral valve repair and also bypass surgery with the TERRELL graft to the LAD. He looks better today and feels better. Not having any significant chest pain. Maintaining sinus rhythm. Chest x-ray showed some atelectatic changes at left base. His hemoglobin is 10.5. Kidney functions are normal. Overall patient is doing well. He is also doing well on incentive spirometry. Continue current medical therapy. Increase activity as tolerated Objective - Vital Signs Vital signs: Vital Signs Temp 98 F 07/26/18 16:00 Pulse 84 07/26/18 16:00 Resp 21 07/26/18 16:00 BP 95/63 07/26/18 16:00 Pulse Ox 96 07/26/18 16:00 Intake & Output 07/25/18 07/26/18 07/26/18 18:59 06:59 18:59 Intake Total 1135.093 641.457 849 Output Total 8137 295 5779 Balance -134.907 -33.543 -256 Weight 119.5 kg 117.9 kg Intake: IV 463.0 279 449 Dextrose 5% in Water 100 400 ml @ 618 mls/hr IV .Q10M PRN with Amiodarone 150 mg Rx#:[id number] Lactated Ringers 1,000 ml 280 240 40 @ 20 mls/hr IV .Q24H MILLI Rx#:[id number] Nitroglycerin-D5w Pmx 50 15.0 mg In Dextrose/Water 1 250ml.bag @ 5 MCG/MIN 1.5 mls/hr IV .Q24H MILLI Rx#: [id number] ci/co 60 pressure bag 108 39 9 Intake, IV Titration 172.093 12.457 Amount ACETAMINOPHEN IV (For NPO 100 ) 1,000 mg In Empty Bag 1 bag @ 400 mls/hr IVPB Q6HR MILLI Rx#:[id number] Insulin Regular 100 unit 32.093 12.457 In Sodium Chloride 0.9% 100 ml @ Per Protocol IV .Q0M MILLI Rx#:[id number] Lactated Ringers 1,000 ml 40 @ 20 mls/hr IV .Q24H MILLI Rx#:[id number] Oral 500 350 400 Output: Chest Tube Drainage 280 190 140 Left Pleural/Mediastinal 280 190 140 Urine 990 485 965 Other: Voiding Method Indwelling Catheter Indwelling Catheter Indwelling Catheter ABP, PAP, CO, CI - Last Documented Arterial Blood Pressure 110/51 Pulmonary Artery Pressure 37/18 Cardiac Output 4.6 Cardiac Index 2.0 - Exam GENERAL EXAM: Patient is alert and oriented and doesn't appear to be in any acute distress HEENT: Normocephalic. Normal reaction of pupils, equal size, normal range of extraocular motion. No erythema or exudates in the throat. NECK: No masses, no nuchal rigidity. CHEST: Postsurgical LUNGS: Diminished breath sounds at bases HEART: S1 and S2 normal with no audible mumurs or gallops. Regular rhythm, femorals equal on both sides.. ABDOMEN: No hepatosplenomegaly, normal bowel sounds, no guarding or rigidity. SKIN: No rashes CENTRAL NERVOUS SYSTEM: No focal deficits. EXTREMITIES: No cyanosis, clubbing or edema. - Labs CBC & Chem 7: 07/26/18 05:00 07/26/18 05:00 Labs: Abnormal Lab Results - Last 24 Hours (Table) 07/25/18 07/25/18 07/25/18 Range/Units 18:07 18:09 19:10 WBC (3.8-10.6) k/uL RBC (4.30-5.90) m/uL Hgb (13.0-17.5) gm/dL Hct (39.0-53.0) % Plt Count (150-450) k/uL Neutrophils # (1.3-7.7) k/uL Monocytes # (0-1.0) k/uL Sodium (137-145) mmol/L BUN (9-20) mg/dL Glucose (74-99) mg/dL POC Glucose (mg/dL) 192 H 193 H 148 H (75-99) mg/dL Calcium (8.4-10.2) mg/dL AST (17-59) U/L Total Protein (6.3-8.2) g/dL Albumin (3.5-5.0) g/dL 07/25/18 07/25/18 07/26/18 Range/Units 20:23 21:23 05:00 WBC 23.4 H (3.8-10.6) k/uL RBC 3.59 L (4.30-5.90) m/uL Hgb 10.5 L (13.0-17.5) gm/dL Hct 31.7 L (39.0-53.0) % Plt Count 143 L (150-450) k/uL Neutrophils # 20.9 H (1.3-7.7) k/uL Monocytes # 1.2 H (0-1.0) k/uL Sodium (137-145) mmol/L BUN (9-20) mg/dL Glucose (74-99) mg/dL POC Glucose (mg/dL) 124 H 110 H (75-99) mg/dL Calcium (8.4-10.2) mg/dL AST (17-59) U/L Total Protein (6.3-8.2) g/dL Albumin (3.5-5.0) g/dL 07/26/18 07/26/18 07/26/18 Range/Units 05:00 07:03 11:46 WBC (3.8-10.6) k/uL RBC (4.30-5.90) m/uL Hgb (13.0-17.5) gm/dL Hct (39.0-53.0) % Plt Count (150-450) k/uL Neutrophils # (1.3-7.7) k/uL Monocytes # (0-1.0) k/uL Sodium 133 L (137-145) mmol/L BUN 31 H (9-20) mg/dL Glucose 111 H (74-99) mg/dL POC Glucose (mg/dL) 105 H 116 H (75-99) mg/dL Calcium 8.3 L (8.4-10.2) mg/dL AST 92 H (17-59) U/L Total Protein 4.8 L (6.3-8.2) g/dL Albumin 2.7 L (3.5-5.0) g/dL 07/26/18 Range/Units 16:51 WBC (3.8-10.6) k/uL RBC (4.30-5.90) m/uL Hgb (13.0-17.5) gm/dL Hct (39.0-53.0) % Plt Count (150-450) k/uL Neutrophils # (1.3-7.7) k/uL Monocytes # (0-1.0) k/uL Sodium (137-145) mmol/L BUN (9-20) mg/dL Glucose (74-99) mg/dL POC Glucose (mg/dL) 127 H (75-99) mg/dL Calcium (8.4-10.2) mg/dL AST (17-59) U/L Total Protein (6.3-8.2) g/dL Albumin (3.5-5.0) g/dL Assessment and Plan (1) Status post mitral valve repair Current Visit: Yes Status: Acute Code(s): Z98.890 - OTHER SPECIFIED POSTPROCEDURAL STATES SNOMED Code(s): 439642401 (2) Status post coronary artery bypass graft Current Visit: Yes Status: Acute Code(s): Z95.1 - PRESENCE OF AORTOCORONARY BYPASS GRAFT SNOMED Code(s): 820537002 Plan: Overall patient seemed to be doing well. He feels well. His maintaining sinus rhythm. His doing well on the incentive spirometry. Increase activity.
[2018-07-26] MEDS ORDERED: FUROSEMIDE 10 MG/ML 4 ML VIAL IV STA (18:20)
[2018-07-26] MEDS: AMIODARONE 300 MG in DEXTROSE 5% IN WATER 250 ML IV PRN ×2 (18:48)
[2018-07-26 20:49] LABS: Glucose,Whole Blood 141 mg/dL (75-99)
[2018-07-26] MEDS: SENNOSIDES-DOCUSATE SODIUM 1 EACH TAB PO SCH (21:15)
--- NOTE | 2018-07-26 22:08 | PN ---
PROGRESS NOTE DATE OF SERVICE: 07/26/2018. PRESENTING COMPLAINT: Coronary bypass. INTERVAL HISTORY: Patient is status post coronary bypass, sitting up on a chair. Went into atrial fibrillation today. Did receive IV amiodarone bolus. He is on 1.5 L of FiO2. Did eat a little bit. Left pleural chest tube is still present. Anand catheter was discontinued. Slightly short of breath. Does feel a bit tired. REVIEW OF SYSTEMS: Done for constitutional, cardiovascular, GI, pulmonary; relevant findings as above. CURRENT MEDICATIONS: Reviewed, include IV amiodarone DuoNeb, and the patient did not get the evening Levemir yesterday but is getting the scheduled 4 units of NovoLog. PHYSICAL EXAMINATION: Temperature 98, pulse 84, respirations 21, blood pressure 95/63 pulse ox 96% on 1.5 L. GENERAL APPEARANCE: Sitting up on a chair, awake. EYES: Pupils equal. Conjunctiva normal. NECK: JVD unable to assess. Mass not palpable. Respiratory effort increased. LUNGS: Diminished breath sounds. CARDIOVASCULAR: Heart is irregular. No edema. ABDOMEN: Soft, nontender. Liver and spleen not palpable. PSYCHIATRY: Alert and oriented x3. Mood and affect normal. INVESTIGATIONS: White count 23.4, hemoglobin 10.5 potassium 4.3, BUN 31, creatinine 0.79, albumin 2.7. ASSESSMENT: 1. Status post coronary bypass. 2. New onset atrial fibrillation. 3. Mitral valve repair with annuloplasty. 4. Hyperlipidemia. 5. Obesity; BMI 34.4. 6. Leukocytosis likely reactive to surgery. Currently no evidence of infection. 7. Hypoalbuminemia as an acute phase reactant. 8. Hyperglycemia. The patient is off the insulin drip. Getting scheduled insulin. PLAN: The patient's Levemir will be discontinued. Keep the patient on sliding scale. The patient's appetite is getting better. Will take it from there. MMODL / IJN: [id number] /
[2018-07-27] MEDS: KETOROLAC 30 MG/ML 1 ML VIAL IVP SCH ×5 (01:06→23:08)
[2018-07-27] MEDS: HEPARIN SODIUM,PORCINE 5,000 UNIT/ML 1 ML VIAL SQ SCH ×4 (01:06→23:09)
[2018-07-27 06:23] LABS: ALT 35 U/L (21-72); AST 102 U/L (17-59); Albumin 2.9 g/dL (3.5-5.0); Alkaline Phosphatase 79 U/L (38-126); Anion Gap 8 mmol/L; Blood Urea Nitrogen 28 mg/dL (9-20); Calcium 8.3 mg/dL (8.4-10.2); Carbon Dioxide 29 mmol/L (22-30); Chloride 97 mmol/L (98-107); Glucose 100 mg/dL (74-99); Potassium 4.3 mmol/L (3.5-5.1); Sodium 134 mmol/L (137-145); Total Bilirubin 1.2 mg/dL (0.2-1.3); Total Protein 5.2 g/dL (6.3-8.2)
[2018-07-27 06:32] LABS: HCT 31.2 % (39.0-53.0); HGB 10.6 gm/dL (13.0-17.5); MCH 29.8 pg (25.0-35.0); MCHC 33.9 g/dL (31.0-37.0); MCV 87.9 fL (80.0-100.0); Mean Platelet Volume 10.2; Platelet Count 133 k/uL (150-450); RBC 3.55 m/uL (4.30-5.90); RDW 13.4 % (11.5-15.5); WBC 20.5 k/uL (3.8-10.6)
[2018-07-27 07:22] LABS: Glucose,Whole Blood 119 mg/dL (75-99)
[2018-07-27] MEDS: INSULIN ASPART (NovoLOG) 100 UNIT/ML VIAL SQ SCH ×9 (07:42→20:57)
--- NOTE | 2018-07-27 07:43 | XR ---
EXAMINATION TYPE: XR chest 1V portable DATE OF EXAM: 07/27/2018 COMPARISON: Prior chest x-ray 07/26/2018 HISTORY: Postop mitral valve replacement TECHNIQUE: Single frontal view of the chest is obtained. FINDINGS: Central venous sheath has been removed. Left chest tube, cardiac leads are again noted. Me idania sternal drain no longer seen. Patient is post median sternotomy and atrial appendage clipping. N o evident sizable pneumothorax. Heart remains enlarged. Suspect some improvement in aeration. IMPRESSION: There is some improvement in aeration. Persistent cardiomegaly.
[2018-07-27] MEDS: IPRATROPIUM-ALBUTEROL 3 ML NEB INHALATION SCH ×4 (07:54→19:52)
[2018-07-27] MEDS: AMIODARONE 200 MG TAB PO SCH ×2 (08:04→20:56)
[2018-07-27] MEDS: ASPIRIN 325 MG TAB PO SCH (08:04)
[2018-07-27] MEDS: PANTOPRAZOLE 40 MG TABLET PO SCH (08:05)
[2018-07-27] MEDS: ATORVASTATIN 40 MG TAB PO SCH (08:05)
[2018-07-27] MEDS: METOPROLOL TARTRATE 25 MG TAB PO SCH ×2 (08:05→20:57)
[2018-07-27] MEDS: CLOPIDOGREL 75 MG TAB PO SCH (08:05)
[2018-07-27] MEDS: MUPIROCIN 2% OINT 22 GM TUBE NASAL SCH ×2 (08:07→20:56)
[2018-07-27] MEDS: AMIODARONE 300 MG in DEXTROSE 5% IN WATER 250 ML IV PRN ×2 (08:15)
--- NOTE | 2018-07-27 10:53 | P.PN ---
Subjective Progress Note Date: 07/27/18 Principal diagnosis: Severe mitral valve regurgitation, coronary artery disease, obesity with a BMI of 37.8 kg/m and hyperlipidemia. POD #3 complex mitral valve repair with zack-cords 2 pair to P2 of the posterior leaflet, ring annuloplasty with a #36 mm [employer] annular flex band. Coronary artery bypass grafting 1 with left internal mammary artery to left anterior descending coronary artery. Clip ligation of the left atrial appendage with a #40 mm Atriclip. Closure of P2, P3 cleft in the posterior mitral leaflet. Intraoperative transesophageal echocardiogram. Postoperative paroxysmal atrial fibrillation, an unexpected clinical outcome of surgery. Patient is sitting up to the bedside chair. He is in no acute distress. He denies any complaints of pain or shortness of breath at this time. He is hemodynamically stable. He is achieving 750 mL on his incentive spirometry with encouragement. WBC count this morning is 20.5, hemoglobin 10.6. Left pleural chest tubes remains in place to low continuous wall suction, draining thin serosanguineous drainage. No air leaks present. Currently on 1.5 L of oxygen nasal cannula with oxygen saturation is 97%. He remained in atrial fibrillation with RVR yesterday and currently his bedside telemetry shows atrial fibrillation with a heart rate of 87. He remains on an amiodarone drip per protocol. He continues to use his incentive spirometry and is achieving 1000 mL. Objective - Vital Signs Vital signs: Vital Signs Temp 97.9 F 07/27/18 04:00 Pulse 88 07/27/18 08:06 Resp 16 07/27/18 06:00 BP 138/78 07/27/18 06:00 Pulse Ox 95 07/27/18 07:56 Intake & Output 07/26/18 07/27/18 07/27/18 17:59 06:59 18:59 Intake Total Output Total 575 Balance -575 Weight Intake: IV Dextrose 5% in Water 100 ml @ 618 mls/hr IV .Q10M PRN with Amiodarone 150 mg Rx#:[id number] Lactated Ringers 1,000 ml @ 20 mls/hr IV .Q24H MILLI Rx#:[id number] pressure bag Intake, IV Titration Amount Amiodarone 300 mg In Dextrose 5% in Water 250 ml @ 0.5 MG/MIN 25 mls/hr IV .Q10H PRN Rx#: [id number] Amiodarone 360 mg In Dextrose 5% in Water 200 ml @ 1 MG/MIN 33.333 mls/ hr IV .Q6H PRN Rx#: [id number] Oral Output: Chest Tube Drainage 150 Left Pleural/Mediastinal Pleural Catheter Left 150 Urine 425 Other: Voiding Method # Voids 1 ABP, PAP, CO, CI - Last Documented Arterial Blood Pressure 110/51 Pulmonary Artery Pressure 37/18 Cardiac Output 4.6 Cardiac Index 2.0 - Constitutional General appearance: Present: cooperative, no acute distress, obese - Respiratory Details: Lung sounds are essentially clear throughout, diminished to his bilateral bases. Respirations are symmetrical and nonlabored. Oxygen saturation are 97% on 1.5 L of oxygen. He is achieving 1000 mL on his incentive spirometry. Left pleural chest tube remains to low continuous wall suction -20 cm H2O. No air leak is present. Draining thin serosanguineous drainage. 150 mL output in the last 8 hours, 250 mL output in the last 24 hours. - Cardiovascular Details: Regular rhythm and rate. S1 and S2 present, negative for S3, gallop or murmur. Sternum is stable. Bedside telemetry showing atrial fibrillation heart rate 87. +1 edema to his bilateral lower extremities. Knee-high VANESSA hose and sequential compression devices in place to his bilateral lower extremities. Heart hugger is in place and he is demonstrating appropriate use. - Gastrointestinal Gastrointestinal Comment(s): Abdomen is soft, nontender and nondistended. Active bowel sounds to all 4 abdominal quadrants. Tolerating oral intake. Passing flatus. No guarding or rigidity. Obese. - Genitourinary Genitourinary Comment(s): Voiding clear yellow urine. 250 mL output in the last 8 hours. - Integumentary Integumentary Comment(s): Skin is warm and dry. No clubbing or cyanosis is present. Midline sternal incision is clean, dry and approximated. No drainage is redness is present. Gauze dressing is clean, dry and intact. - Neurologic Neurologic: Present: CNII-XII intact - Musculoskeletal Musculoskeletal: Present: gait normal, strength equal bilaterally - Psychiatric Psychiatric: Present: A&O x's 3, appropriate affect, intact judgment & insight - Allied health notes Allied health notes reviewed: nursing - Labs CBC & Chem 7: 07/27/18 05:14 07/27/18 05:14 Labs: Abnormal Lab Results - Last 24 Hours (Table) 07/26/18 07/26/18 07/26/18 Range/Units 11:46 16:51 20:45 WBC (3.8-10.6) k/uL RBC (4.30-5.90) m/uL Hgb (13.0-17.5) gm/dL Hct (39.0-53.0) % Plt Count (150-450) k/uL Sodium (137-145) mmol/L Chloride (98-107) mmol/L BUN (9-20) mg/dL Glucose (74-99) mg/dL POC Glucose (mg/dL) 116 H 127 H 141 H (75-99) mg/dL Calcium (8.4-10.2) mg/dL AST (17-59) U/L Total Protein (6.3-8.2) g/dL Albumin (3.5-5.0) g/dL 07/27/18 07/27/18 07/27/18 Range/Units 05:14 05:14 06:54 WBC 20.5 H (3.8-10.6) k/uL RBC 3.55 L (4.30-5.90) m/uL Hgb 10.6 L (13.0-17.5) gm/dL Hct 31.2 L (39.0-53.0) % Plt Count 133 L (150-450) k/uL Sodium 134 L (137-145) mmol/L Chloride 97 L (98-107) mmol/L BUN 28 H (9-20) mg/dL Glucose 100 H (74-99) mg/dL POC Glucose (mg/dL) 119 H (75-99) mg/dL Calcium 8.3 L (8.4-10.2) mg/dL AST 102 H (17-59) U/L Total Protein 5.2 L (6.3-8.2) g/dL Albumin 2.9 L (3.5-5.0) g/dL - Imaging and Cardiology Chest x-ray: report reviewed, image reviewed Assessment and Plan Assessment: 1. Status post complex mitral valve repair and coronary artery bypass grafting 1 with placement of his left internal mammary artery to his left anterior descending coronary artery. Clip ligation of the left atrial appendage, closure of P2, P3 cleft in the posterior mitral leaflet. 2. History of severe mitral valve regurgitation. 3. History of coronary artery disease. 4. Hyperlipidemia. 5. Postoperative paroxysmal atrial fibrillation. Plan: 1. Continue aspirin, statin, Plavix, and beta skip. Will increase beta skip as tolerated. 2. Discontinue left pleural chest tube. 3. Increase activity as tolerated. PT/OT and cardiac rehab following. 4. Wean oxygen as tolerated, encourage incentive spirometry use 10 times every hour while awake. 5. Bronchodilators per pulmonology. 6. Discontinue amiodarone drip, start amiodarone 400 mg by mouth twice a day for atrial fibrillation prophylaxis. 7. Will monitor daily labs and x-rays. Electrolyte replacement per protocol. 8. Pain control with current medication regimen. 9. Insulin management per primary care service. 10. GI prophylaxis with Protonix, DVT prophylaxis with subcu heparin and SCDs. 11. More recommendations to follow based on patient's clinical course. Left pleural chest tube removed without incident. 4 x 4 gauze to cover, Vaseline impregnated gauze to cover and secured with tape. Time with Patient: Greater than 30
[2018-07-27 11:22] LABS: Glucose,Whole Blood 112 mg/dL (75-99)
--- NOTE | 2018-07-27 12:32 | P.PN ---
Subjective Progress Note Date: 07/27/18 This patient is a status post mitral valve repair and also bypass surgery with the TERRELL graft to the LAD. He looks better today and feels better. Not having any significant chest pain. Patient is in atrial fibrillation Chest x-ray showed some atelectatic changes at left base. His hemoglobin is 10.5. Kidney functions are normal. Overall patient is doing well. He is also doing well on incentive spirometry. Continue current medical therapy. Increase activity as tolerated. 07/26/2018: This patient remains seem identical is stable. He is in atrial fibrillation . Patient is on amiodarone. Denies any chest pain or shortness of breath. He eating better. Lungs show diminished breath sounds at bases. Heart is irregular. Renal functions are normal. Hemoglobin is stable. White count is chronically elevated. Continue current medical therapy with by mouth amiodarone. Increase activity as tolerated Objective - Vital Signs Vital signs: Vital Signs Temp 99.2 F 07/27/18 12:00 Pulse 93 07/27/18 12:00 Resp 18 07/27/18 12:00 BP 109/68 07/27/18 12:00 Pulse Ox 96 07/27/18 12:00 Intake & Output 07/26/18 07/27/18 07/27/18 17:59 06:59 18:59 Intake Total Output Total 855 Balance -855 Weight Intake: IV Dextrose 5% in Water 100 ml @ 618 mls/hr IV .Q10M PRN with Amiodarone 150 mg Rx#:[id number] Lactated Ringers 1,000 ml @ 20 mls/hr IV .Q24H [facility] Rx#:[id number] pressure bag Intake, IV Titration Amount Amiodarone 300 mg In Dextrose 5% in Water 250 ml @ 0.5 MG/MIN 25 mls/hr IV .Q10H PRN Rx#: [id number] Amiodarone 360 mg In Dextrose 5% in Water 200 ml @ 1 MG/MIN 33.333 mls/ hr IV .Q6H PRN Rx#: [id number] Oral Output: Chest Tube Drainage 180 Left Pleural/Mediastinal Pleural Catheter Left 180 Urine 675 Other: Voiding Method Urinal # Voids 1 ABP, PAP, CO, CI - Last Documented Arterial Blood Pressure 110/51 Pulmonary Artery Pressure 37/18 Cardiac Output 4.6 Cardiac Index 2.0 - Exam GENERAL EXAM: Patient is alert and oriented and doesn't appear to be in any acute distress HEENT: Normocephalic. Normal reaction of pupils, equal size, normal range of extraocular motion. No erythema or exudates in the throat. NECK: No masses, no nuchal rigidity. CHEST: Postsurgical LUNGS: Diminished breath sounds at bases HEART: S1 and S2 normal with no audible mumurs or gallops. Regular rhythm, f emorals equal on both sides.. ABDOMEN: No hepatosplenomegaly, normal bowel sounds, no guarding or rigidity. SKIN: No rashes CENTRAL NERVOUS SYSTEM: No focal deficits. EXTREMITIES: No cyanosis, clubbing or edema. - Labs CBC & Chem 7: 07/27/18 05:14 07/27/18 05:14 Labs: Abnormal Lab Results - Last 24 Hours (Table) 07/26/18 07/26/18 07/26/18 Range/Units 11:46 16:51 20:45 WBC (3.8-10.6) k/uL RBC (4.30-5.90) m/uL Hgb (13.0-17.5) gm/dL Hct (39.0-53.0) % Plt Count (150-450) k/uL Sodium (137-145) mmol/L Chloride (98-107) mmol/L BUN (9-20) mg/dL Glucose (74-99) mg/dL POC Glucose (mg/dL) 116 H 127 H 141 H (75-99) mg/dL Calcium (8.4-10.2) mg/dL AST (17-59) U/L Total Protein (6.3-8.2) g/dL Albumin (3.5-5.0) g/dL 07/27/18 07/27/18 07/27/18 Range/Units 05:14 05:14 06:54 WBC 20.5 H (3.8-10.6) k/uL RBC 3.55 L (4.30-5.90) m/uL Hgb 10.6 L (13.0-17.5) gm/dL Hct 31.2 L (39.0-53.0) % Plt Count 133 L (150-450) k/uL Sodium 134 L (137-145) mmol/L Chloride 97 L (98-107) mmol/L BUN 28 H (9-20) mg/dL Glucose 100 H (74-99) mg/dL POC Glucose (mg/dL) 119 H (75-99) mg/dL Calcium 8.3 L (8.4-10.2) mg/dL AST 102 H (17-59) U/L Total Protein 5.2 L (6.3-8.2) g/dL Albumin 2.9 L (3.5-5.0) g/dL 07/27/18 Range/Units 11:19 WBC (3.8-10.6) k/uL RBC (4.30-5.90) m/uL Hgb (13.0-17.5) gm/dL Hct (39.0-53.0) % Plt Count (150-450) k/uL Sodium (137-145) mmol/L Chloride (98-107) mmol/L BUN (9-20) mg/dL Glucose (74-99) mg/dL POC Glucose (mg/dL) 112 H (75-99) mg/dL Calcium (8.4-10.2) mg/dL AST (17-59) U/L Total Protein (6.3-8.2) g/dL Albumin (3.5-5.0) g/dL Assessment and Plan (1) Status post mitral valve repair Current Visit: Yes Status: Acute Code(s): Z98.890 - OTHER SPECIFIED POSTPROCEDURAL STATES SNOMED Code(s): 532968669 (2) Status post coronary artery bypass graft Current Visit: Yes Status: Acute Code(s): Z95.1 - PRESENCE OF AORTOCORONARY BYPASS GRAFT SNOMED Code(s): 034297034 (3) Postoperative atrial fibrillation Current Visit: Yes Status: Acute Code(s): I97.89 - OTH POSTPROC COMP AND DISORDERS OF THE CIRC SYS, NEC; I48.91 - UNSPECIFIED ATRIAL FIBRILLATION SNOMED Code(s): 66870735 Plan: Continue current medical therapy. Increase activity as tolerated. Incentive spirometry
--- NOTE | 2018-07-27 12:49 | P.PN ---
Subjective Progress Note Date: 07/27/18 Principal diagnosis: Status post mitral valve repair and CABG times one. 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 Patient underwent complex mitral valve repair today, with Edgar cords 2 and repair of posterior leaflet. During annuloplasty with #36 mm [employer] annular flex band. Patient also underwent coronary artery bypass grafting 1 with TERRELL to LAD. Postoperatively patient was on mechanical ventilation, and I was asked to see him on consultation. Patient is presently in the intensive care unit, his ventilator settings are IMV rate of 12, tidal volume of 550, PEEP of 10, and FiO2 initially was at 100% and I cut it down to 45%. ABG in the ICU showed a pO2 of 382 pCO2 of 46 pH of 7.37. Chest x-ray was reviewed, the endotracheal tube was noted in the right mainstem bronchus, however it was earlier removed by the surgeon on the case before the patient came up to the ICU. No follow-up chest x-ray was done since the tube was adjusted. Patient was reevaluated today on 07/25/2018, remains in the ICU, he was weaned and extubated a few hours after he arrived to the ICU. Patient is now on nasal cannula, seems to be doing fairly well. Denies any cough no wheezing no shortness of breath. His chest x-ray did show some atelectasis at the left lower lobe, and that is expected after such surgery. His WBC count is elevated today at 26.5, however it was 30.0 yesterday. Basic metabolic profile is normal, renal profile is normal. Patient is not doing well with incentive spirometry, hence I instructed him on the use of the incentive spirometer, and encouraged him to use it more often. Reevaluated today on 07/26/2018, remains in the ICU, doing fairly well, on few liters nasal cannula. Patient is relatively asymptomatic, no cough no wheezing no shortness of breath, and no chest pain.chest x-ray was reviewed and it showed mostly atelectasis of the left base, otherwise no significant findings.left sided chest tube remains in place. CBC WBC count is 23.4 hemoglobin is 10.5, renal profile is normal. Patient O2 saturation is 97% on 1.5 L nasal cannula. Patient was reevaluated today on 07/27/2018, remains in the ICU, patient is doing great. Patient did develop atrial fibrillation with RVR yesterday, presently remains in atrial fibrillation, on amiodarone, and his heart rate is 87. Patient is doing well with incentive spirometry, and he is able to achieve almost as thousand mL. Chest x-ray is showing improvement in his atelectasis. Otherwise the patient is asymptomatic, and he is in no distress. He is hemody namically stable. And his atrial fibrillation is being addressed accordingly. All labs were reviewed, WBC count is coming down to 20.5 hemoglobin is 10.6 Objective - Vital Signs Vital signs: Vital Signs Temp 99.2 F 07/27/18 12:00 Pulse 93 07/27/18 12:00 Resp 18 07/27/18 12:00 BP 109/68 07/27/18 12:00 Pulse Ox 96 07/27/18 12:00 Intake & Output 07/26/18 07/27/18 07/27/18 17:59 06:59 18:59 Intake Total Output Total 855 Balance -855 Weight Intake: IV Dextrose 5% in Water 100 ml @ 618 mls/hr IV .Q10M PRN with Amiodarone 150 mg Rx#:[id number] Lactated Ringers 1,000 ml @ 20 mls/hr IV .Q24H [facility] Rx#:[id number] pressure bag Intake, IV Titration Amount Amiodarone 300 mg In Dextrose 5% in Water 250 ml @ 0.5 MG/MIN 25 mls/hr IV .Q10H PRN Rx#: [id number] Amiodarone 360 mg In Dextrose 5% in Water 200 ml @ 1 MG/MIN 33.333 mls/ hr IV .Q6H PRN Rx#: [id number] Oral Output: Chest Tube Drainage 180 Left Pleural/Mediastinal Pleural Catheter Left 180 Urine 675 Other: Voiding Method Urinal # Voids 1 ABP, PAP, CO, CI - Last Documented Arterial Blood Pressure 110/51 Pulmonary Artery Pressure 37/18 Cardiac Output 4.6 Cardiac Index 2.0 - Exam Physical Exam: Revealed a 68-year-old white male sitting at bedside , in no distress Head: Atraumatic, normocephalic. HEENT:[Neck is supple.] [No neck masses.] [No thyromegaly.] [No JVD.] Chest: [Diminished breath sounds at the bases no crackles or rhonchi or wheezes. Cardiac Exam: [Normal S1 and S2, no S3 gallop, 2/6 systolic murmur thought the precordium.] Abdomen: [Obese, Soft, nontender, no megaly, no rebound, no guarding, normal bowel sounds.] Extremities: [No clubbing, no edema, no cyanosis.] Neurological Exam: [No focal neurologic deficit.] Alert oriented 3. Psychiatric: Normal mood affect and mental status examination. lymphatics: No lymphadenopathy. - Labs CBC & Chem 7: 07/27/18 05:14 07/27/18 05:14 Labs: Abnormal Lab Results - Last 24 Hours (Table) 07/26/18 07/26/18 07/26/18 Range/Units 11:46 16:51 20:45 WBC (3.8-10.6) k/uL RBC (4.30-5.90) m/uL Hgb (13.0-17.5) gm/dL Hct (39.0-53.0) % Plt Count (150-450) k/uL Sodium (137-145) mmol/L Chloride (98-107) mmol/L BUN (9-20) mg/dL Glucose (74-99) mg/dL POC Glucose (mg/dL) 116 H 127 H 141 H (75-99) mg/dL Calcium (8.4-10.2) mg/dL AST (17-59) U/L Total Protein (6.3-8.2) g/dL Albumin (3.5-5.0) g/dL 07/27/18 07/27/18 07/27/18 Range/Units 05:14 05:14 06:54 WBC 20.5 H (3.8-10.6) k/uL RBC 3.55 L (4.30-5.90) m/uL Hgb 10.6 L (13.0-17.5) gm/dL Hct 31.2 L (39.0-53.0) % Plt Count 133 L (150-450) k/uL Sodium 134 L (137-145) mmol/L Chloride 97 L (98-107) mmol/L BUN 28 H (9-20) mg/dL Glucose 100 H (74-99) mg/dL POC Glucose (mg/dL) 119 H (75-99) mg/dL Calcium 8.3 L (8.4-10.2) mg/dL AST 102 H (17-59) U/L Total Protein 5.2 L (6.3-8.2) g/dL Albumin 2.9 L (3.5-5.0) g/dL 07/27/18 Range/Units 11:19 WBC (3.8-10.6) k/uL RBC (4.30-5.90) m/uL Hgb (13.0-17.5) gm/dL Hct (39.0-53.0) % Plt Count (150-450) k/uL Sodium (137-145) mmol/L Chloride (98-107) mmol/L BUN (9-20) mg/dL Glucose (74-99) mg/dL POC Glucose (mg/dL) 112 H (75-99) mg/dL Calcium (8.4-10.2) mg/dL AST (17-59) U/L Total Protein (6.3-8.2) g/dL Albumin (3.5-5.0) g/dL Assessment and Plan Assessment: Impression: 1 status post complex mitral valve repair and coronary artery bypass grafting 1, TERRELL to LAD. Status post clip ligation of left atrial appendage and closure of P2, P3 cleft in the posterior mitral leaflet. Postoperative day #3 2 history of severe mitral regurgitation 3 history of coronary artery disease. 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 5 postoperative left lower lobe atelectasis, expected after surgery. 6 postoperative atrial fibrillation, rate controlled with amiodarone at present. This is also expected after this kind of surgery. Recommendation: Continue incentive spirometry, amiodarone, bronchodilators, encourage deep coughing deep breathing, ambulate, cardiac meds as listed. P atient will remain in the ICU, and we'll continue to monitor. Time with Patient: Less than 30
[2018-07-27 16:46] LABS: Glucose,Whole Blood 109 mg/dL (75-99)
--- NOTE | 2018-07-27 17:07 | PN ---
PROGRESS NOTE DATE OF SERVICE: July 27, 2018. PRESENTING COMPLAINT: Coronary artery bypass. INTERVAL HISTORY: Patient is status post coronary artery bypass, doing much better. Sitting up in a chair. All chest tubes have been taken off. Atrial fibrillation is controlled. Eating better. Breathing is stable. Using the respiratory flow meter. REVIEW OF SYSTEMS: Done for constitutional, cardiovascular, GI, pulmonary and relevant findings as above. CURRENT MEDICATIONS: Reviewed. PHYSICAL EXAMINATION: VITAL SIGNS: Temperature 99.2, pulse 92, respiratory 18, blood pressure 109/68, pulse ox 96 percent on 1 L. GENERAL APPEARANCE: Sitting up on the chair. Looking better. EYES: Pupils equal. Conjunctivae pale. Normal. NECK: JVD not raised. Unable to assess. Mass not palpable. RESPIRATORY: Effort increased. LUNGS: Diminished breath sounds. CARDIOVASCULAR: Heart sounds irregular. Minimal edema. ABDOMEN: Soft, nontender. Liver and spleen not palpable. PSYCHIATRY: Alert and oriented x3. Mood and affect normal. INVESTIGATIONS: White count 20.5, hemoglobin 10.6, potassium 4.3, BUN 20, creatinine 0.79. ASSESSMENT: 1. Status post coronary artery bypass. 2. Persistent atrial fibrillation, rate is now controlled. 3. Mitral valve repair with annuloplasty. 4. Hyperlipidemia. 5. Obesity BMI 34.4. 6. Leukocytosis likely reactive to surgery, is gradually coming down. No evidence of infection. 7. Hypoalbuminemia as an acute phase reactant. Accu-Cheks are controlled. Care was discussed with the patient. MMODL / IJN: [id number] /
[2018-07-27] MEDS: SENNOSIDES-DOCUSATE SODIUM 1 EACH TAB PO SCH (20:57)
[2018-07-27 21:23] LABS: Glucose,Whole Blood 112 mg/dL (75-99)
[2018-07-28 05:36] LABS: HCT 28.9 % (39.0-53.0); HGB 9.6 gm/dL (13.0-17.5); MCH 29.4 pg (25.0-35.0); MCHC 33.2 g/dL (31.0-37.0); MCV 88.6 fL (80.0-100.0); Mean Platelet Volume 9.1; Platelet Count 184 k/uL (150-450); RBC 3.27 m/uL (4.30-5.90); RDW 13.5 % (11.5-15.5); WBC 16.5 k/uL (3.8-10.6)
[2018-07-28 05:42] LABS: ALT 61 U/L (21-72); AST 112 U/L (17-59); Albumin 2.7 g/dL (3.5-5.0); Alkaline Phosphatase 132 U/L (38-126); Anion Gap 6 mmol/L; Blood Urea Nitrogen 27 mg/dL (9-20); Calcium 8.1 mg/dL (8.4-10.2); Carbon Dioxide 29 mmol/L (22-30); Chloride 100 mmol/L (98-107); Glucose 96 mg/dL (74-99); Sodium 135 mmol/L (137-145); Total Bilirubin 1.1 mg/dL (0.2-1.3)
[2018-07-28 07:07] LABS: Glucose,Whole Blood 103 mg/dL (75-99)
[2018-07-28] MEDS: INSULIN ASPART (NovoLOG) 100 UNIT/ML VIAL SQ SCH ×4 (07:13→12:32)
[2018-07-28] MEDS: KETOROLAC 30 MG/ML 1 ML VIAL IVP SCH ×2 (07:13→12:28)
[2018-07-28] MEDS ORDERED: POTASSIUM CHLORIDE ER 20 MEQ TAB.ER PO SCH (08:00)
[2018-07-28] MEDS: IPRATROPIUM-ALBUTEROL 3 ML NEB INHALATION SCH ×2 (08:23→11:30)
[2018-07-28] MEDS: HEPARIN SODIUM,PORCINE 5,000 UNIT/ML 1 ML VIAL SQ SCH (09:32)
[2018-07-28] MEDS: PANTOPRAZOLE 40 MG TABLET PO SCH (09:32)
[2018-07-28] MEDS: ATORVASTATIN 40 MG TAB PO SCH (09:33)
[2018-07-28] MEDS: AMIODARONE 200 MG TAB PO SCH (09:33)
[2018-07-28] MEDS: CLOPIDOGREL 75 MG TAB PO SCH (09:33)
[2018-07-28] MEDS: METOPROLOL TARTRATE 25 MG TAB PO SCH (09:33)
[2018-07-28] MEDS: ASPIRIN 325 MG TAB PO SCH (09:33)
--- NOTE | 2018-07-28 10:10 | XR ---
EXAMINATION TYPE: XR chest 2V DATE OF EXAM: 07/28/2018 COMPARISON: Prior chest x-ray 07/27/2018 HISTORY: Status post mitral valve replacement TECHNIQUE: Frontal and lateral views of the chest are obtained. FINDINGS: Left-sided chest tube has been removed. No evident pneumothorax. Patient is post median st ernotomy and atrial appendage clipping, mitral valve replacement. Heart remains enlarged. There may b e small effusions. Patchy basilar density persists. IMPRESSION: No evident complication status post chest tube removal.
--- NOTE | 2018-07-28 10:57 | P.PN ---
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 Patient underwent complex mitral valve repair today, with Edgar cords 2 and repair of posterior leaflet. During annuloplasty with #36 mm [employer] annular flex band. Patient also underwent coronary artery bypass grafting 1 with TERRELL to LAD. Postoperatively patient was on mechanical ventilation, and I was asked to see him on consultation. Patient is presently in the intensive care unit, his ventilator settings are IMV rate of 12, tidal volume of 550, PEEP of 10, and FiO2 initially was at 100% and I cut it down to 45%. ABG in the ICU showed a pO2 of 382 pCO2 of 46 pH of 7.37. Chest x-ray was reviewed, the endotracheal tube was noted in the right mainstem bronchus, however it was earlier removed by the surgeon on the case before the patient came up to the ICU. No follow-up chest x-ray was done since the tube was adjusted. Patient was reevaluated today on 07/25/2018, remains in the ICU, he was weaned and extubated a few hours after he arrived to the ICU. Patient is now on nasal cannula, seems to be doing fairly well. Denies any cough no wheezing no shortness of breath. His chest x-ray did show some atelectasis at the left lower lobe, and that is expected after such surgery. His WBC count is elevated today at 26.5, however it was 30.0 yesterday. Basic metabolic profile is normal, renal profile is normal. Patient is not doing well with incentive spirometry, hence I instructed him on the use of the incentive spirometer, and encouraged him to use it more often. Reevaluated today on 07/26/2018, remains in the ICU, doing fairly well, on few liters nasal cannula. Patient is relatively asymptomatic, no cough no wheezing no shortness of breath, and no chest pain.chest x-ray was reviewed and it showed mostly atelectasis of the left base, otherwise no significant findings.left sided chest tube remains in place. CBC WBC count is 23.4 hemoglobin is 10.5, renal profile is normal. Patient O2 saturation is 97% on 1.5 L nasal cannula. Patient was reevaluated today on 07/27/2018, remains in the ICU, patient is doing great. Patient did develop atrial fibrillation with RVR yesterday, presently remains in atrial fibrillation, on amiodarone, and his heart rate is 87. Patient is doing well with incentive spirometry, and he is able to achieve almost as thousand mL. Chest x-ray is showing improvement in his atelectasis. Otherwise the patient is asymptomatic, and he is in no distress. He is hemodynamically stable. And his atrial fibrillation is being addressed accordingly. All labs were reviewed, WBC count is coming down to 20.5 hemoglobin is 10.6 On 07/28/2018 patient seen in follow-up in the intensive care unit, he is awake and alert, in no acute distress, pulse ox is 95%, he is hemodynamically stable, in sinus mechanism. Patient has been tolerating ambulation, has been no acute events overnight, today's chest x-ray been reviewed with Dr. Moreno, and shows interval removal of the left-sided chest tube, small pleural effusions, patchy basilar density, possible atelectasis. On his labs, white blood cell count is 16.5, hemoglobin is 9.6, sodium was 135, rest electrolytes and renal profile were unremarkable. Working on his incentive spirometer, acute events overnight, anticipate discharge home today Objective - Vital Signs Vital signs: Vital Signs Temp 97.5 F L 07/28/18 08:00 Pulse 76 07/28/18 08:37 Resp 18 07/28/18 08:20 BP 114/72 07/28/18 08:00 Pulse Ox 95 07/28/18 08:00 Intake & Output 07/27/18 07/28/18 07/28/18 18:59 06:59 18:59 Output Total 1155 400 300 Balance -1155 -400 -300 Weight 117.6 kg Output: Chest Tube Drainage 180 Pleural Catheter Left 180 Urine 975 400 300 Other: Voiding Method Urinal Urinal Urinal # Voids 1 0 1 ABP, PAP, CO, CI - Last Documented Arterial Blood Pressure 110/51 Pulmonary Artery Pressure 37/18 Cardiac Output 4.6 Cardiac Index 2.0 - Exam GENERAL EXAM: Alert, wasn't, 68-year-old white male comfortable in no apparent distress. HEAD: Normocephalic/atraumatic. EYES: Normal reaction of pupils, equal size. Conjunctiva pink, sclera white. NOSE: Clear with pink turbinates. THROAT: No erythema or exudates. NECK: No masses, no JVD, no thyroid enlargement, no adenopathy. CHEST: No chest wall deformity. Symmetrical expansion. Midsternal incision, clean dry and intact, chest tube site is clean dry and intact LUNGS: Equal air entry with no crackles, wheeze, rhonchi or dullness. CVS: Regular rate and rhythm, normal S1 and S2, no gallops, no murmurs, no rubs ABDOMEN: Soft, nontender. No hepatosplenomegaly, normal bowel sounds, no guarding or rigidity. EXTREMITIES: No clubbing, no edema, no cyanosis, 2+ pulses and upper and lower extremities. MUSCULOSKELETAL: Muscle strength and tone normal. SPINE: No scoliosis or deformity SKIN: No rashes CENTRAL NERVOUS SYSTEM: Alert and oriented -3. No focal deficits, tone is normal in all 4 extremities. PSYCHIATRIC: Alert and oriented -3. Appropriate affect. Intact judgment and insight. - Labs CBC & Chem 7: 07/28/18 05:05 07/28/18 05:05 Labs: Abnormal Lab Results - Last 24 Hours (Table) 07/27/18 07/27/18 07/27/18 Range/Units 11: 16:42 20:57 WBC (3.8-10.6) k/uL RBC (4.30-5.90) m/uL Hgb (13.0-17.5) gm/dL Hct (39.0-53.0) % Sodium (137-145) mmol/L BUN (9-20) mg/dL POC Glucose (mg/dL) 112 H 109 H 112 H (75-99) mg/dL Calcium (8.4-10.2) mg/dL AST (17-59) U/L Alkaline Phosphatase (38-126) U/L Total Protein (6.3-8.2) g/dL Albumin (3.5-5.0) g/dL 07/28/18 07/28/18 07/28/18 Range/Units 05:05 05:05 07:04 WBC 16.5 H (3.8-10.6) k/uL RBC 3.27 L (4.30-5.90) m/uL Hgb 9.6 L (13.0-17.5) gm/dL Hct 28.9 L (39.0-53.0) % Sodium 135 L (137-145) mmol/L BUN 27 H (9-20) mg/dL POC Glucose (mg/dL) 103 H (75-99) mg/dL Calcium 8.1 L (8.4-10.2) mg/dL AST 112 H (17-59) U/L Alkaline Phosphatase 132 H (38-126) U/L Total Protein 5.0 L (6.3-8.2) g/dL Albumin 2.7 L (3.5-5.0) g/dL Assessment and Plan Plan: Assessment: 1 status post complex mitral valve repair and coronary artery bypass grafting 1, TERRELL to LAD. Status post clip ligation of left atrial appendage and closure of P2, P3 cleft in the posterior mitral leaflet. Postoperative day #4 2 history of severe mitral regurgitation 3 history of coronary artery disease. 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 5 postoperative left lower lobe atelectasis, expected after surgery. 6 postoperative atrial fibrillation, rate controlled with amiodarone at present. This is also expected after this kind of surgery. Plan: Patient has been reviewed by Dr. Casillas, shows small pleural effusions, and adjacent atelectasis, patient is working on the incentive spirometer, vital signs are stable, no acute events overnight, on room air. From pulmonary perspective patient is stable for discharge home, need follow-up with Dr. Ramsey in the office in 7 days I performed a history & physical examination of the patient and discussed their management with my nurse practitioner, Jazmine Velasco. I reviewed the nurse practitioner's note and agree with the documented findings and plan of care. Lung sounds are positive for clear breath sounds. The findings and the impression was discussed with the patient. I attest to the documentation by the nurse practitioner. Time with Patient: Less than 30
[2018-07-28 11:32] LABS: Glucose,Whole Blood 102 mg/dL (75-99)
[2018-07-28] MEDS ORDERED: ACETAMINOPHEN TAB 500 MG TAB PO PRN ×2 (12:18)
--- NOTE | 2018-07-28 14:15 | P.PN ---
Progress Note - Text Progress Note Date: 07/28/18 This 68-year-old gentleman is status post mitral valve repair for severe mitral regurgitation and ruptured chordae tendineae. Patient is recovering very well. Denies any chest pain or shortness of breath. Patient is in atrial fibrillation with controlled ventricular response. Tolerating physical activity. No ventricular arrhythmias noted. All the chest tubes were removed. Chest x-ray showed stable findings. Hemoglobin remained stable. White count is chronically elevated. Patient could be discharged home. Follow-up in the office with Dr. MARILEE Rdz. GENERAL EXAM: Patient is alert and oriented and doesn't appear to be in any acute distress HEENT: Normocephalic. Normal reaction of pupils, equal size, normal range of extraocular motion. No erythema or exudates in the throat. NECK: No masses, no nuchal rigidity. CHEST: No chest wall deformity. LUNGS: Diminished breath sounds at bases HEART: S1 and S2 normal. Irregular heart sounds ABDOMEN: No hepatosplenomegaly, normal bowel sounds, no guarding or rigidity. SKIN: No rashes CENTRAL NERVOUS SYSTEM: No focal deficits. EXTREMITIES: No cyanosis, clubbing or edema. Final impression: #1. Status post mitral repair #2. Postop atrial fibrillation. Plan: Patient will be discharged home. Follow-up with Dr. MARILEE Rdz in one week
--- NOTE | 2018-07-28 14:16 | P.DS ---
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 History of severe mitral valve regurgitation. 2. History of coronary artery disease. 3. Hyperlipidemia. 4. Obesity with a BMI of 37.8 kg/m. 5. Postoperative paroxysmal atrial fibrillation. PRINCIPAL PROCEDURE: 1. Complex mitral valve repair with needle cord 2 pair to P2 of the posterior leaflet, ring annuloplasty with a #36 mm [employer] annular flex band. 2. Coronary artery bypass grafting 1 with left internal mammary artery to the left anterior descending coronary artery. 3. Clip ligation of the left atrial appendage with a 40 mm Atriclip. 4. Closure of P2, P3 cleft in the posterior mitral leaflet. 5. Intraoperative transesophageal echocardiogram. HISTORY OF PRESENT ILLNESS: This is a 68-year-old gentleman who is followed by Dr. Maria Guadalupe Guzman on an outpatient basis. The patient has a past medical history significant for mitral valve disease which has been followed on an outpatient basis for around 15 years, hyperlipidemia and obesity. Recently, the patient presented to [facility] for elective cardiac catheterization as part of workup for mitral valve repair/replacement. The cardiac catheterization revealed single vessel coronary artery disease with a 60% stenosis to his proximal left anterior descending coronary artery and 77% stenosis by IVUS.. Subsequently due to his mitral valve disease and coronary artery disease he was referred to Dr. Harinder Arce from cardiothoracic surgery. Dr. Arce met with the patient and reviewed the SHANICE findings and cardiac catheterization findings and recommended the patient undergo an elective coronary artery bypass grafting 1 surgery with mitral valve repair. After discussing the risks and benefits with the patient and his significant other the patient wish to proceed with an elective myocardial revascularization and mitral valve repair. HOSPITAL COURSE: The patient was admitted to the hospital and after obtaining consent was taken to the operating room where Dr. Harinder Arce performed a co mplex mitral valve repair with needle cord 2 pair to P2 of the posterior leaflet, ring annuloplasty with a #36 mm [employer] annular flex band, coronary artery bypass grafting 1 with left internal mammary artery to the left anterior descending coronary artery, clip ligation of the left atrial appendage with a 40 mm Atriclip, closure of P2, P3 cleft in the posterior mitral leaflet and an intraoperative transesophageal echocardiogram. Upon completion of the surgery the patient was transferred to the cardiovascular intensive care unit where he was recovered, monitored hemodynamically and where he progressed to cardiac rehabilitation phase 1. The patient did have an episode of postoperative paroxysmal atrial fibrillation which self limiting and was treated accordingly. Subsequently, he was extubated in less than 24 hours, all lines, tubes and drips were discontinued when appropriate and transfer orders were placed to 3 self cardiac stepdown unit for further monitoring and rehabilitation. Due to lack of bed availability the patient remained in the intensive care unit until discharge. His oxygen was titrated down, he continued to work with physical, occupational and cardiac rehab therapy, he was tolerating an oral diet, his pain was well controlled and he was ready to be discharged home with [facility] home health care on postoperative day #4. He has received written and verbal stones instructions regarding his medications, activity restrictions, signs and symptoms requiring physician notification and his follow-up appointments. COMPLICATIONS: His postoperative period was complicated by some paroxysmal atrial fibrillation which was treated accordingly. CONSULTATIONS: 1. Dr. MARILEE Rdz for cardiology management. 2. Dr. Ramsey for pulmonary and ventilator management. 3. Dr. Abbasi for medical management. DISCHARGE INSTRUCTIONS: 1. No driving for 4 weeks, or until physician gives their ok. 2. The patient should sleep in their own bed, no medical bed needed. 3. Stairs are not an issue. If the bedroom is upstairs, it is advised that the patient go up at night and down in the morning for the first week. Go slowly, using handrail and take 1 step at a time. 4. VANESSA hose are to be worn for 30 days or until physician discontinues. 5. Heart hugger is to be worn 100% of the time until physician discontinues.(except when showering) 6. No lifting, pushing, or pulling more than 10 pounds for 12 weeks. The physician will advise of any restriction changes. 7. The patient is expected to continue the prescribed walking program. 8. Continue pain control per as needed orders. 9. Continue with incentive spirometry and splinting/heart hugger until otherwise directed by the physician. 10. Must shower daily using liquid antibacterial soap and a separate white w ashcloth for each individual incision. 11. Routine sternal incision care, no ointments, lotions or powders on the incisions. 12. Please notify surgeon/nurse practitioner for temperature greater than 101F or purulent drainage from incisions 13. Prescriptions for first 30 days given per cardiac surgery service. After 30 days, all prescription refills obtained through cardiology/primary care physician. HOME HEALTH SERVICES TO PROVIDE: RN SKILLED HOME CARE SERVICES FOR POST-OP SURGICAL PATIENTS WITH THE FOLLOWING: Coronary Artery Bypass Surgery (CABG), Mitral Valve Replacement/Repair ( MVR), Aortic Valve Replacement/Repair (AVR) RN TO CONTINUE EDUCATION FROM ``ROAD TO A HEALTH HEART PATIENT EDUCATION MANUAL" (GIVEN TO PATIENT IN THE HOSPITAL) MEDICATION RECONCILIATION WITH EDUCATION NEEDED ON FIRST HOME VISIT EMPHASIZE IMPORTANCE OF WEARING BREAST SUPPORT/HEART HUGGER ENCOURAGE USE OF INCENTIVE SPIROMETER 10 X EVERY HOUR WHILE AWAKE ENCOURAGE UTILIZATION OF LOWER EXTREMITY COMPRESSION STOCKINGS/VANESSA HOSE and ELEVATE LEGS ABOVE LEVEL OF HEART WHILE AT REST. ENCOURAGE AMBULATION 3-5x/day INCREASING TOLERATES, WHILE AVOID EXTREMES IN TEMPERATURE FREQUENCY: RN TO OPEN THE PATIENT WITHIN 24 HOURS OF DISCHARGE FROM THE HOSPITAL WITH TELEHEALTH INSTALLED AT [facility] [place], RN TO VISIT 2-3 X A WEEK FOR 4 WEEKS ESTABLISHED BY PATIENT NEEDS. LABORATORY: CBC, CMP TO BE DRAWN ON THE THIRD DAY HOME (RAN STAT) FAX RESULTS TO [phone]. TELEHEALTH PARAMETERS: WEIGHT: NOTIFY MD OF WEIGHT GAIN OF 2 LBS IN 24 HOURS OR 5 LBS IN ONE WEEK HR: NOTIFY MD OF HR <55 BPM OR HR>100 BPM BP: NOTIFY MD IF BP <90/55 OR BP>140/100 O2 SAT: NOTIFY MD IF PO2<93% ON ROOM AIR SEND TELEHEALTH REPORT TO FEEDLOT MANAGER AND CARDIOVASCULAR SURGEON THE FIRST WEEK OF CARE AND THEN BI-WEEKLY. PLEASE ADDITIONALLY COMMUNICATE ANY ABNORMALS AND NEW FINDINGS TO THE SURGEONS OFFICE. Plan - Discharge Summary Discharge Rx Participant: Yes New Discharge Prescriptions: New Aspirin 325 mg PO DAILY tab Amiodarone [Cordarone] 400 mg PO BID #50 tab Atorvastatin [Lipitor] 40 mg PO DAILY #30 tab Metoprolol Tartrate [Lopressor] 25 mg PO BID #60 tab Clopidogrel [Plavix] 75 mg PO DAILY #30 tab Pantoprazole [Protonix] 40 mg PO AC-BRKFST #30 tablet.dr Dietrich-Docusate Sodium [Senokot-S] 2 each PO HS #14 tab Acetaminophen Tab [Tylenol] 500 mg PO Q6HR PRN tab PRN Reason: Pain Scale 1 To 5 Acetaminophen Tab [Tylenol] 1,000 mg PO Q6HR PRN tab PRN Reason: Pain Scale 6 To 10 Continue Multivitamins, Thera [Multivitamin (formulary)] 1 tab PO DAILY Loratadine [Claritin] 10 mg PO DAILY L.acidoph,Paracasei, B.lactis [Probiotic] 1 cap PO DAILY Discontinued Sildenafil Citrate [Viagra] 25 mg PO DAILY Atorvastatin [Lipitor] 40 mg PO HS Aspirin 81 mg PO DAILY Discharge Medication List L.acidoph,Paracasei, B.lactis [Probiotic] 1 cap PO DAILY 07/21/18 [History] Loratadine [Claritin] 10 mg PO DAILY 07/21/18 [History] Multivitamins, Thera [Multivitamin (formulary)] 1 tab PO DAILY 07/21/18 [History] Acetaminophen Tab [Tylenol] 1,000 mg PO Q6HR PRN tab 07/28/18 [Rx] Acetaminophen Tab [Tylenol] 500 mg PO Q6HR PRN tab 07/28/18 [Rx] Amiodarone [Cordarone] 400 mg PO BID #50 tab 07/28/18 [Rx] Aspirin 325 mg PO DAILY tab 07/28/18 [Rx] Atorvastatin [Lipitor] 40 mg PO DAILY #30 tab 07/28/18 [Rx] Clopidogrel [Plavix] 75 mg PO DAILY #30 tab 07/28/18 [Rx] Metoprolol Tartrate [Lopressor] 25 mg PO BID #60 tab 07/28/18 [Rx] Pantoprazole [Protonix] 40 mg PO AC-BRKFST #30 tablet. 07/28/18 [Rx] Sennofroilans-Docusate Sodium [Senokot-S] 2 each PO HS #14 tab 03/11/19 [Rx] Follow up Appointment(s)/Referral(s): Yobany Ramsey MD [STAFF PHYSICIAN] - 08/04/18 10:00 am Nicole Rowe NPC [Nurse Practitioner] - 08/01/18 1:00 pm Mahsa Rdz MD [STAFF PHYSICIAN] - 08/19/18 9:45 am Maria Guadalupe Guzman DO [REFERRING] - 08/04/18 10:45 am Harinder Arce MD [STAFF PHYSICIAN] - 1 Week [facility] Visiting Nurse, [NON-STAFF] - 1-2 Days Discharge Disposition: HOME WITH HOME HEALTH SERVICES
[2018-07-28 15:09] VITALS: BP 113/69; PULSE 79; RESP 16; TEMP 97.8
== END 2018-07-28 15:31 | disposition home health service (06) | DRG 219 ==
LOC: 2ORMAIN 05:49 → 2SICU 14:12
PROVIDERS: ADMIT Thoracic Surgery (Cardiothoracic Vascular Surgery); ATTEND Thoracic Surgery (Cardiothoracic Vascular Surgery)
PROC: 5A1221Z Performance of Cardiac Output, Continuous (ICD-10-PCS; 2018-07-24)
PROC: 02L70CK Occlusion of Left Atrial Appendage with Extraluminal Device, Open Approach (ICD-10-PCS; 2018-07-24)
PROC: B24BZZ4 Ultrasonography of Heart with Aorta, Transesophageal (ICD-10-PCS; 2018-07-24)
PROC: 02UG0JZ Supplement Mitral Valve with Synthetic Substitute, Open Approach (ICD-10-PCS; principal; 2018-07-24 08:00)
PROC: 02100Z9 Bypass Coronary Artery, One Artery from Left Internal Mammary, Open Approach (ICD-10-PCS; 2018-07-24 08:00)
DX: I34.0 Nonrheumatic mitral (valve) insufficiency (principal); I51.1 Rupture of chordae tendineae, not elsewhere classified; J98.11 Atelectasis; I97.190 Other postprocedural cardiac functional disturbances following cardiac surgery; J90 Pleural effusion, not elsewhere classified; I48.0 Paroxysmal atrial fibrillation; E88.09 Other disorders of plasma-protein metabolism, not elsewhere classified; D72.829 Elevated white blood cell count, unspecified; J30.2 Other seasonal allergic rhinitis; E66.9 Obesity, unspecified; E78.5 Hyperlipidemia, unspecified; F41.9 Anxiety disorder, unspecified; I25.10 Atherosclerotic heart disease of native coronary artery without angina pectoris; R73.9 Hyperglycemia, unspecified; Z79.82 Long term (current) use of aspirin; Z79.899 Other long term (current) drug therapy; Z68.37 Body mass index [BMI] 37.0-37.9, adult; Y83.2 Surgical operation with anastomosis, bypass or graft as the cause of abnormal reaction of the patient, or of later complication, without mention of misadventure at the time of the procedure
CPT/HCPCS: 71045; 71046; 80048; 80053; 82330; 82805; 83735; 85025; 85027; 85520; 85610; 85730; 86850; 86891; 86900; 86901; 86920; 88305; 94002; 94640